=== PATIENT | female | born 1950 | race Caucasian/White ===

== ENCOUNTER 2019-10-22 14:33 | Outpatient (CLI) | payer MEDICARE, SELFPAY ==
--- NOTE | ~2019-10-22 | XR_ITS ---
XR chest 2V DATE: 10/22/2019 14:50 INDICATION: Shortness of breath. History of COPD. TECHNIQUE: PA and lateral views COMPARISON: 05/30/2017 CT chest FINDINGS: Heart size is normal. There is thoracic aortic calcification, ectasia and prominent tortuos ity. No hilar or mediastinal enlargement is evident. The lungs are moderately hyperinflated but clear of infiltrate or consolidation. No pleural effusion or pulmonary vascular congestion or pneumothorax. Osteopenia. Diffuse idiopathic skeletal hyperostosis of the thoracic spine. IMPRESSION: Bilateral hyperinflation consistent with history of COPD No active cardiopulmonary disease Thoracic aortic calcification, ectasia and tortuosity Reviewed, dictated and finalized at location A.
== END 2019-10-22 14:34 | disposition home or self-care (01) ==
PROVIDERS: PCP Family Medicine; Visit Provider Family Medicine
DX: R06.02 Shortness of breath (principal); E04.9 Nontoxic goiter, unspecified; E05.90 Thyrotoxicosis, unspecified without thyrotoxic crisis or storm; I70.0 Atherosclerosis of aorta
CPT/HCPCS: 71046

== ENCOUNTER 2019-12-02 18:29 | Outpatient (CLI) | payer MEDICARE, SELFPAY ==
--- NOTE | ~2019-12-02 | XR_ITS ---
EXAMINATION:XR cervical spine min 6V DATE: 12/02/2019 18:57 INDICATION: Neck pain TECHNIQUE: AP, lateral in neutral, flexion, extension, bilateral oblique, and odontoid views of the c ervical spine are provided. COMPARISON: None FINDINGS: There are 2 mm of anterolisthesis of C4 on C5. No laxity is present with flexion or extensi on. The odontoid is intact. No fracture is identified. The vertebral body heights are normal. There i s moderate loss of intervertebral disc space height at C5-6 and C6-7. There is severe multilevel face t and uncovertebral joint osteoarthritis. Prevertebral soft tissues are normal. IMPRESSION: 1. Severe cervical spondylosis without acute findings. Reviewed, dictated and finalized at location A.
== END 2019-12-02 18:30 | disposition home or self-care (01) ==
PROVIDERS: PCP Family Medicine
DX: M47.892 Other spondylosis, cervical region (principal)
CPT/HCPCS: 72052

== ENCOUNTER 2020-01-17 12:42 | Outpatient (CLI) | payer MEDICARE, SELFPAY ==
[2020-01-17 13:46] LABS: Thyroid Stimulating Hormone 0.529 uIU/mL (0.465-4.680)
== END 2020-01-17 12:43 | disposition home or self-care (01) ==
PROVIDERS: PCP Family Medicine; Visit Provider Family Medicine
DX: E04.9 Nontoxic goiter, unspecified (principal); E05.90 Thyrotoxicosis, unspecified without thyrotoxic crisis or storm
CPT/HCPCS: 36415; 84439; 84443

== ENCOUNTER → 2020-09-04 01:41 | Outpatient (CLI) | payer MEDICARE, SELFPAY ==
[2020-09-04 20:13] LABS: SARS-CoV-2 RNA PCR Negative
== END ==
PROVIDERS: PCP Family Medicine; Visit Provider Internal Medicine Gastroenterology
DX: Z01.812 Encounter for preprocedural laboratory examination (principal); Z20.822 Contact with and (suspected) exposure to COVID-19
CPT/HCPCS: C9803; U0003; U0005

== ENCOUNTER 2020-09-07 02:29 | Day surgery (SDC) | payer MEDICARE, SELFPAY ==
[2020-08-24 12:50] VITALS: BMI 32.4
--- NOTE | 2020-09-06 09:59 | WPDANESEPPF ---
Anes - Initial Pre Proc Eval Procedure: Operation Date: 09/07/20 08:00 Proposed Procedures p Esophagogastroduodenoscopy - Vignesh Rasmussen DO Date/Time: 09/06/20 09:59 Surgeon: Vignesh Rasmussen DO Pre Op Diagnosis: GERD, huntley's esophagus Patient Data Age: 69 Gender: F Height: 1.6 m Weight: 83 kg Allergies Allergy/AdvReac Type Severity Reaction Status Date / Time erythromycin base Allergy Intermediate hives Verified 09/07/20 06:40 Penicillins Allergy Intermediate hives Verified 09/07/20 06:40 Home Medications Medication Instructions Recorded Confirmed Type albuterol sulfate 90 mcg/actuation 1 inhalation INHALATION Q4H 10/22/19 09/04/20 History aerosol inhaler omeprazole 20 mg capsule,delayed 20 mg PO DAILY 10/22/19 09/04/20 History release diltiazem HCl 180 mg capsule,24 180 mg PO DAILY #90 cap 01/23/20 09/04/20 Rx hr,extended release venlafaxine 37.5 mg tablet 37.5 mg PO DAILY #90 tablet 08/24/20 09/04/20 Rx methimazole 5 mg tablet 5 mg PO .QOD #45 tablet 08/31/20 09/04/20 Rx Xanax 0.25 mg tablet 0.25 mg PO TID PRN #90 tablet NS 09/04/20 09/04/20 Rx ciprofloxacin HCl 500 mg tablet 500 mg PO Q12H 7 Days #14 tablet 09/04/20 09/04/20 Rx phenazopyridine 200 mg tablet 200 mg PO TID PRN #6 tablet 09/04/20 09/04/20 Rx Patient hx anesthesia problems: none Family hx anesthesia problems: none [facility] Past Medical History Medical History (Updated 09/04/20 @ 15:47 by Erika Hoskins PA-C) Huntley's esophageal ulceration Benign essential HTN COPD (chronic obstructive pulmonary disease) Esophageal stricture MARILYN (generalized anxiety disorder) Hyperthyroidism Ischemic colitis MDD (major depressive disorder), recurrent episode, moderate Surgical History Surgical History Status post balloon dilatation of esophageal stricture Family History Family History Father Family history of premature coronary heart disease Mother Family history of malignant neoplasm of breast in first degree relative Patient's mother is Social History Social History (Updated 09/04/20 @ 09:44 by Mena Tyler CMA) Social History: Single Years smoked: 25 Smoking status: Current some day smoker Tobacco type: cigarettes Second hand tobacco smoke exposure: No Smoking end date: 06/09/16 Additional smoking assessment comments: pt smokes a pack a month Alcohol intake: current Drinks per week: 2 Alcohol use details: beer Substance use: never Substance use type: does not use Living arrangements: alone Gender identity (if verbalized by the patient): Female Spiritual care concerns: No Anes - Eval Final PreProcedure Day of Procedure 09/06/20 09:59 Patient weight: obese Heart: regular rate and rhythm Lungs: clear to auscultation and normal air movement Airway: Mallampati scale class II Neurological: alert and oriented Last oral intake: >/= 8 hours ASA classification: III Emergent: no Anesthetic plan: proceed Anesthesia type and monitoring: general GIVS Informed Consent: The patient's anesthetic plan and its attendant risks and benefits were discussed with the patient/family/POA. Questions were solicited and answers provided to the satisfaction of the patient/family/POA.
[2020-09-07 06:42] VITALS: BP 130/73; PULSE 66; RESP 18; TEMP 36.8; O2SAT 99; BMI 31.4
[2020-09-07] MEDS: LACTATED RINGERS 1,000 ML 150 ML IV CONT (06:57)
--- NOTE | 2020-09-07 07:53 | WPDGICN ---
GI Consult Note Consult date/time: 09/07/20 07:53 HPI: Reason for visit is EGD. This very pleasant lady seen in consultation request of the primary physician. Impression: Her very pleasant lady with a history reflux disease. She has a short-segment Jimenez's esophagus documented previously. Will evaluate for underlying dysplasia. She does have history esophageal stricture And esophageal ulceration. Ischemic colitis. COPD. Hyperthyroidism with thyroid nodules. Hypertension. HLD. Anxiety/depression. Recommendation: EGD. History: This very pleasant lady has a history reflux disease and dysphagia. She previously has documented esophageal stricture. Previous biopsies have showed a 1 cm segment of short-segment Jimenez's esophagus. We will evaluate for underlying dysplasia. Her GI review systems otherwise unremarkable. Physical examination: General: very pleasant patient in no acute distress. HEENT: Head was normocephalic sclerae is clear mouth without masses neck was supple. Heart: Rate rhythm regular without S3 or S4. Lungs: CTA. Abdomen: Soft with no guarding or rigidity. Bowel sounds were active. Neurologic: Cranial nerves 2 through 12 intact. No focal defects. No clonus. Musculoskeletal system: Revealed no joint tenderness or swelling no muscle atrophy. Extremities: Reveal no significant edema. Skin: Warm and dry with normal turgor. Mental status: intact. Patient is alert and oriented. Review of Systems Review of Systems: All systems reviewed & are unremarkable except as noted in HPI and below PMFSH Past Medical History Medical History (Updated 09/04/20 @ 15:47 by Erika Hoskins PA-C) Jimenez's esophageal ulceration Benign essential HTN COPD (chronic obstructive pulmonary disease) Esophageal stricture MARILYN (generalized anxiety disorder) Hyperthyroidism Ischemic colitis MDD (major depressive disorder), recurrent episode, moderate Surgical History Surgical History Status post balloon dilatation of esophageal stricture Family History Family History Father Family history of premature coronary heart disease Mother Family history of malignant neoplasm of breast in first degree relative Patient's mother is Social History Social History (Updated 09/04/20 @ 09:44 by Mena Tyler CMA) Social History: Single Years smoked: 25 Smoking status: Current some day smoker Tobacco type: cigarettes Second hand tobacco smoke exposure: No Smoking end date: 06/09/16 Additional smoking assessment comments: pt smokes a pack a month Alcohol intake: current Drinks per week: 2 Alcohol use details: beer Substance use: never Substance use type: does not use Living arrangements: alone Gender identity (if verbalized by the patient): Female Spiritual care concerns: No Meds Home Medications and Allergies Home Medications Medication Instructions Recorded Confirmed Type albuterol sulfate 90 mcg/actuation 1 inhalation INHALATION Q4H 10/22/19 09/04/20 History aerosol inhaler omeprazole 20 mg capsule,delayed 20 mg PO DAILY 10/22/19 09/04/20 History release diltiazem HCl 180 mg capsule,24 180 mg PO DAILY #90 cap 01/23/20 09/04/20 Rx hr,extended release venlafaxine 37.5 mg tablet 37.5 mg PO DAILY #90 tablet 08/24/20 09/04/20 Rx methimazole 5 mg tablet 5 mg PO .QOD #45 tablet 08/31/20 09/04/20 Rx Xanax 0.25 mg tablet 0.25 mg PO TID PRN #90 tablet NS 09/04/20 09/04/20 Rx ciprofloxacin HCl 500 mg tablet 500 mg PO Q12H 7 Days #14 tablet 09/04/20 09/04/20 Rx phenazopyridine 200 mg tablet 200 mg PO TID PRN #6 tablet 09/04/20 09/04/20 Rx Allergies Allergy/AdvReac Type Severity Reaction Status Date / Time erythromycin base Allergy Intermediate hives Verified 09/07/20 06:40 Penicillins Allergy Interm
[2020-09-07 08:21] VITALS: BP 111/73; PULSE 64; RESP 25; O2SAT 98
[2020-09-07 08:31] VITALS: BP 101/69; PULSE 65; RESP 23; O2SAT 98
[2020-09-07 08:41] VITALS: BP 122/69; PULSE 64; RESP 20; O2SAT 98
== END 2020-09-07 09:06 | disposition home or self-care (01) ==
PROVIDERS: PCP Family Medicine; Visit Provider Internal Medicine Gastroenterology
PROC: 0DJ08ZZ Inspection of Upper Intestinal Tract, Via Natural or Artificial Opening Endoscopic (ICD-10-PCS; CPT 43235; principal; 2020-09-07 08:00)
DX: K21.00 Gastro-esophageal reflux disease with esophagitis, without bleeding (principal); K22.70 Barrett's esophagus without dysplasia; K44.9 Diaphragmatic hernia without obstruction or gangrene; I10 Essential (primary) hypertension; J44.9 Chronic obstructive pulmonary disease, unspecified; E78.5 Hyperlipidemia, unspecified; E05.90 Thyrotoxicosis, unspecified without thyrotoxic crisis or storm; F41.1 Generalized anxiety disorder; F33.1 Major depressive disorder, recurrent, moderate; Z79.51 Long term (current) use of inhaled steroids; F17.210 Nicotine dependence, cigarettes, uncomplicated; E66.9 Obesity, unspecified; Z68.31 Body mass index [BMI] 31.0-31.9, adult
CPT/HCPCS: 43239; 87081; 88305; C9803; J2704; J7120; U0003; U0005

== ENCOUNTER 2020-09-25 11:09 | Outpatient (CLI) | payer MEDICARE, SELFPAY ==
[2020-09-25 12:09] LABS: Basophils Percent Auto 0.4 % (0.2-1.2); Eosinophils Absolute Auto 0.2 K/mm3 (0-0.3); Eosinophils Percent Auto 3.3 % (0-4.4); Hematocrit 40.8 % (37.0-47.0); Hemoglobin 13.5 g/dL (12.0-15.0); Immature Granulocyte Absolute 0.01 K/mm3 (0.00-0.031); Immature Granulocyte Percent A 0.2 % (0-0.5); Lymphocytes Absolute Auto 1.62 K/mm3 (0.9-3.2); Lymphocytes Percent Auto 29.3 % (18.3-44.2); Mean Corpuscular HGB Conc 33.1 g/dl (32-36); Mean Corpuscular Hemoglobin 31.2 pg (26-34); Mean Corpuscular Volume 94.2 fl (80-100); Mean Platelet Volume 11.5 fl (7.4-10.4); Monocytes Absolute Auto 0.4 K/mm3 (0.1-0.6); Monocytes Percent Auto 6.5 % (2.6-8.5); Neutrophils Absolute Auto 3.3 K/mm3 (1.3-6.7); Neutrophils Percent Auto 60.3 % (45.5-73.1); Platelet Count Result 171 k/mm3 (150-375); Red Blood Count 4.33 M/mm3 (4.2-5.4); Red Cell Distribution Width 13.2 % (11.5-14.5); White Blood Count 5.5 K/mm3 (4.5-10.0)
[2020-09-25 12:21] LABS: Alanine Aminotransferase 6 U/L (4-35); Albumin Level 3.8 g/dL (3.5-5.1); Alkaline Phosphatase 88 U/L (38-126); Anion Gap 3 mmol/L (8-16); Aspartate Amino Transferase 21 U/L (14-36); Bilirubin,Total 0.3 mg/dL (0.2-1.3); Blood Urea Nitrogen 14 mg/dL (7-17); Calcium 8.8 mg/dL (8.4-10.2); Carbon Dioxide 29 mmol/L (22-30); Chloride 105 mmol/L (98-107); Cholesterol 235 mg/dL (0-200); Estimated Glomerular Filt Rate > 60; Glucose 86 mg/dL (65-105); HDL Direct 50 mg/dL; Potassium 3.8 mmol/L (3.4-5.0); Sodium 137 mmol/L (137-145); Triglycerides 100 mg/dL (<150)
[2020-09-25 12:32] LABS: LDL Cholesterol Direct 135 mg/dL
[2020-09-25 12:51] LABS: Thyroid Stimulating Hormone 0.744 uIU/mL (0.465-4.680)
[2020-09-25 13:06] LABS: Free T4 Free Thyroxine 0.96 ng/mL (0.78-2.19)
== END 2020-09-25 11:10 | disposition home or self-care (01) ==
PROVIDERS: PCP Family Medicine; Visit Provider Physician Assistant
DX: E03.9 Hypothyroidism, unspecified (principal); E05.90 Thyrotoxicosis, unspecified without thyrotoxic crisis or storm; F41.1 Generalized anxiety disorder; I10 Essential (primary) hypertension; J44.9 Chronic obstructive pulmonary disease, unspecified; Z13.220 Encounter for screening for lipoid disorders
CPT/HCPCS: 36415; 80053; 80061; 84439; 84443; 85025

== ENCOUNTER 2020-12-27 08:12 | Outpatient (CLI) | payer MEDICARE, SELFPAY ==
--- NOTE | ~2020-12-27 | DEXA_ITS ---
Bone Density Report Name: Asya Ramirez Age: 70 Sex: Female Ethnicity: White Date of : 1950 Indication: osteopenia; height loss; prior fracture; asthma or emphysema; postmenopausal Referring Provider: Erika Hoskins Study: Bone densitometry was performed. Exam Date: December 27, 2020 Accession number: [id number] Bone Density: Region BMD T-score Z-score Classification AP Spine (L1-L4) 0.962 -0.8 1.5 Normal Femoral Neck (Left) 0.828 -0.2 1.7 Normal Total Hip (Left) 0.740 -1.7 0.0 Osteopenia Total Hip Bilateral Avg 0.688 -2.1 -0.4 Osteopenia Femoral Neck (Right) 0.752 -0.9 1.0 Normal Total Hip (Right) 0.634 -2.5 -0.9 Osteoporosis World Health Organization criteria for BMD impression classify patients as: Normal (T-score at or above -1.0), Osteopenia (T-score between -1.0 and -2.5), or Osteoporosis (T-score at or below -2.5). 10-year Fracture Risk: FRAX not reported because: Some T-score for Spine Total or Hip Total or Femoral Neck at or below -2.5 Previous Exams: Region Exam Age BMD T-score BMD Change BMD Change Date g/cm2 vs Baseline vs Previous AP Spine(L1-L4) 12/27/2020 70 0.962 -0.8 -0.052(-5.1%)# -0.140(-12.7%) 09/11/2011 60 1.102 0.5 0.088(8.7%)# 0.044(4.2%)# 04/13/2009 58 1.058 0.1 0.043(4.3%)* 0.043(4.3%)* 08/03/2005 54 1.014 -0.3 Total Hip(Left) 12/27/2020 70 0.740 -1.7 -0.254(-25.6%) -0.099(-11.8%) 09/11/2011 60 0.839 -0.8 -0.156(-15.7%) -0.109(-11.5%) 04/13/2009 58 0.947 0.0 -0.047(-4.7%)* -0.047(-4.7%)* 08/03/2005 54 0.994 0.4 Total Hip(Right) 12/27/2020 70 0.634 -2.5 -0.266(-29.6%) -0.175(-21.6%) 09/11/2011 60 0.809 -1.1 -0.091(-10.1%) -0.096(-10.7%) 04/13/2009 58 0.905 -0.3 0.006(0.6%) 0.006(0.6%) 08/03/2005 54 0.899 -0.3 *Denotes significance at 95% confidence level, LSC for AP Spine = 0.022 g/cm2, LSC for Total Hip = 0.027 g/cm2 Clinical Information Provided by Patient: Has had a low trauma fracture Smokes Has the following medical conditions: Asthma or Emphysema Patient maximum height was 64.5 Menopause Age: 45 Does not regularly consume dairy products Drinks caffeinated beverages Onset of menses at age 10 Number of children 0 Impression: The patient has established osteoporosis, based on the Right Total Hip T-score and the existence of a prior fracture. The patient has risk factors, including: smoking, previous fracture. No significant
--- NOTE | ~2020-12-27 | MM_ITS ---
EXAMINATION: MM screening cornelio BI w chuck HISTORY: Screening TECHNIQUE: Craniocaudal and mediolateral oblique 3-D tomosynthesis images were obtained and synthetic 2-D images were generated. CAD analysis was submitted and interpreted. COMPARISON: No prior mammogram is available for comparison at this institution. BREAST PARENCHYMAL COMPOSITION: There are scattered areas of fibroglandular density. FINDINGS: There is no evidence of suspicious mass, calcification, or architectural distortion to sugg est malignancy in either breast. There has been no suspicious interval change. IMPRESSION: 1. No mammographic evidence of malignancy. 2. Recommend routine screening mammography in one year. BI-RADS Category 1: Negative Reviewed, dictated and finalized at location A.
== END 2020-12-27 08:13 | disposition home or self-care (01) ==
LOC: ANHIMG 08:20
PROVIDERS: PCP Family Medicine; Referring Provider Obstetrics & Gynecology; Visit Provider Physician Assistant
DX: Z12.31 Encounter for screening mammogram for malignant neoplasm of breast (principal); Z78.0 Asymptomatic menopausal state; M85.852 Other specified disorders of bone density and structure, left thigh; M85.851 Other specified disorders of bone density and structure, right thigh; M81.0 Age-related osteoporosis without current pathological fracture
CPT/HCPCS: 77063; 77067; 77080

== ENCOUNTER 2021-03-12 10:33 | Outpatient (CLI) | payer MEDICARE, SELFPAY ==
--- NOTE | ~2021-03-12 | US_ITS ---
EXAMINATION: US venous doppler [facility] DATE: 03/12/2021 11:09 INDICATION: Left lower limb swelling TECHNIQUE: Grayscale ultrasound images without and with compression and Doppler ultrasound images of the left lower extremity veins were obtained. COMPARISON: None. FINDINGS: The visualized portions of left common femoral vein, profunda (deep) femoral vein, femoral vein, popl iteal vein, peroneal veins, posterior tibial veins, gastrocnemius vein and greater saphenous vein out flow are patent. IMPRESSION: 1. No deep venous thrombosis in the left lower limb. Reviewed, dictated and finalized at location B.
--- NOTE | ~2021-03-12 | CT_ITS ---
EXAMINATION: CT diagnostic chest wo con DATE: 03/12/2021 11:15 INDICATION: f/u pulmonary nodules TECHNIQUE: Computed tomography (CT) of the chest was performed without intravenous contrast. Addition al 3D reconstructions utilizing coronal maximum intensity projection (MIP) were performed. Automated exposure control and iterative reconstruction technique were employed. The dose-length product was 16 5.33 mGy-cm. COMPARISON: 05/30/2017 FINDINGS: Mild emphysema. Residual mild linear scarring at the previously noted lobular right middle lobe nodul e. Interval decrease in size and development of calcification at the previous noted 2 more central ri ght middle lobe nodules consistent with old granulomatous disease. There is a new likely coalescent c luster of nodules in the anterobasilar segment of the right lower lobe together measuring 1.5 x 0.7 c m. Small Y-shaped branching likely bronchocele in the lingula measuring 8 mm in maximal length. New 7 x 5 mm nodule at the posterior basilar segment of the right lower lobe. There are few additional sca ttered small calcified and noncalcified less than 4 mm nodules scattered throughout both lungs. Sever al of these are clustered with tree-in-bud appearance consistent with endobronchial spread of disease likely infectious/inflammatory in etiology. No pulmonary edema, pleural effusion or pneumothorax. He art size is normal. Atherosclerotic coronary artery calcification. No pericardial effusion. Ectatic a scending thoracic aorta measuring up to 4.2 cm in maximal diameter. Calcified AP window lymph nodes c onsistent with old granulomatous disease. Small sliding-type hiatal hernia. Visualized upper abdomen is unremarkable. Thoracic kyphosis with chronic compression fracture with mild anterior wedging at T7 . Moderate thoracic spondylosis with bridging osteophytes at multiple levels consistent with diffuse idiopathic skeletal hyperostosis (DISH). IMPRESSION: 1. Multiple calcified and noncalcified pulmonary nodules throughout both lungs likely sequela of old granulomatous disease. There is a new 15 x 7 mm left lower lobe nodule which appears to represent a c luster of several 6 mm and smaller nodules. The location would be challenging for biopsy and would re commend further evaluation with 3 month follow-up low-dose noncontrast chest CT. Reviewed, dictated and finalized at location B. IMPRESSION: 1. Multiple calcified and noncalcified pulmonary nodules throughout both lungs likely sequela of old granulomatous disease. There is a new 15 x 7 mm left lowe r lobe nodule which appears to represent a cluster of several 6 mm and smaller nodules. The location would be challenging for biopsy and would recommend furth er evaluation with 3 month follow-up low-dose noncontrast chest CT.
== END 2021-03-12 10:34 | disposition home or self-care (01) ==
LOC: ANHIMG 10:40
PROVIDERS: PCP Family Medicine; Visit Provider Physician Assistant
DX: R91.8 Other nonspecific abnormal finding of lung field (principal); M79.89 Other specified soft tissue disorders
CPT/HCPCS: 71250; 93971

== ENCOUNTER 2021-05-04 06:50 | Outpatient (CLI) | payer MEDICARE, SELFPAY ==
[2021-05-04 07:21] LABS: Alanine Aminotransferase 8 U/L (4-35); Albumin Level 3.7 g/dL (3.5-5.1); Alkaline Phosphatase 77 U/L (38-126); Anion Gap 2 mmol/L (8-16); Aspartate Amino Transferase 19 U/L (14-36); Bilirubin,Total 0.3 mg/dL (0.2-1.3); Blood Urea Nitrogen 18 mg/dL (7-17); Calcium 8.7 mg/dL (8.4-10.2); Carbon Dioxide 28 mmol/L (22-30); Chloride 106 mmol/L (98-107); Cholesterol 211 mg/dL (0-200); Estimated Glomerular Filt Rate > 60; Glucose 91 mg/dL (65-110); HDL Direct 47 mg/dL; Potassium 4.4 mmol/L (3.4-5.0); Sodium 136 mmol/L (137-145); Triglycerides 92 mg/dL (<150)
[2021-05-04 07:32] LABS: LDL Cholesterol Direct 131 mg/dL
[2021-05-04 07:36] LABS: Free T4 Free Thyroxine 0.94 ng/mL (0.78-2.19)
[2021-05-04 07:50] LABS: Thyroid Stimulating Hormone 0.908 uIU/mL (0.465-4.680)
== END 2021-05-04 06:51 | disposition home or self-care (01) ==
LOC: ANHLAB 06:52
PROVIDERS: PCP Family Medicine; Visit Provider Physician Assistant
DX: E78.2 Mixed hyperlipidemia (principal); F41.1 Generalized anxiety disorder; E05.90 Thyrotoxicosis, unspecified without thyrotoxic crisis or storm; I10 Essential (primary) hypertension
CPT/HCPCS: 36415; 80053; 80061; 84439; 84443

== ENCOUNTER → 2021-06-22 11:35 | Outpatient (CLI) | payer MEDICARE, SELFPAY ==
--- NOTE | ~2021-06-22 | CT_ITS ---
EXAMINATION: CT chest high resolution [facility] EXAM DATE: 06/22/2021 11:51 INDICATION: R91.8 - Other nonspecific abnormal finding of lung field. Multiple lung nodules follow-up . TECHNIQUE: Spiral CT of the chest without contrast. HRCT. Axial, coronal and sagittal images of the chest were reviewed. Coronal maximum intensity pixel images of chest reviewed. The dose-length prod uct (DLP) for this examination was 290.83 mGy-cm. The exposure was tailored according to patient siz e (auto mA exposure control), and iterative reconstruction (ASIR) was used as additional dose reducti on technique. Comparison is made to prior examination from 03/12/2021. FINDINGS: Ascending aorta measures 4.4 cm, mildly dilated. Moderate hyperinflation and mild emphysem a. Some aortic tortuosity. Small sliding gastroesophageal hiatal hernia. Right lower lobe small clust er of nodules is identical in appearance, largest dimension at 15 mm. This is most likely noncalcifie d granuloma. Several other smaller noncalcified and calcified nodules bilaterally. There are no pleural or pericardial effusions. Tracheobronchial tree is patent. There is no media stinal, hilar or axillary lymphadenopathy. There is no pneumothorax. Heart normal in size. Ther e is mild to moderate coronary arterial calcification, arterial sclerosis. Splenic granulomas. Small thyroid nodules, have already been evaluated and biopsy performed in 2019. Patient has diffuse idiop athic skeletal hyperostosis (DISH). There is moderate thoracic spondylosis without osteoblastic or osteolytic lesions identified. No intralobular septal thickening on the HRCT. IMPRESSION: 1. Stable small calcified, noncalcified nodules likely postinfectious residua; one-year follow-up no ncontrast chest CT recommended. 2. Mildly dilated ascending aorta, 4.4 cm. 3. Moderate hyperinflation. 4. Small gastroesophageal hiatal hernia. Reviewed, dictated and finalized at location A. GY CONSERVATION ENGINEER IMPRESSION: 1. Stable small calcified, noncalcified nodules likely postinfectious residua; one-year follow-up noncontrast chest CT recommended. 2. Mildly dilated ascending aorta, 4.4 cm. 3. Moderate hyperinflation. 4. Small gastroesophageal hiatal hernia.
== END ==
PROVIDERS: Visit Provider Nurse Practitioner Gerontology
DX: R91.8 Other nonspecific abnormal finding of lung field (principal); K44.9 Diaphragmatic hernia without obstruction or gangrene
CPT/HCPCS: 71250

== ENCOUNTER 2021-08-18 07:01 | Outpatient (CLI) | payer MEDICARE, SELFPAY ==
[2021-08-18 08:50] LABS: Alanine Aminotransferase 6 U/L (4-35); Aspartate Amino Transferase 19 U/L (14-36); Cholesterol 234 mg/dL (0-200); HDL Direct 41 mg/dL; Triglycerides 102 mg/dL (<150)
[2021-08-18 09:01] LABS: LDL Cholesterol Direct 138 mg/dL
== END 2021-08-18 07:02 | disposition home or self-care (01) ==
PROVIDERS: PCP Family Medicine; Visit Provider Internal Medicine Cardiovascular Disease
DX: I71.9 Aortic aneurysm of unspecified site, without rupture (principal); E78.5 Hyperlipidemia, unspecified; I10 Essential (primary) hypertension; R00.2 Palpitations; Z72.0 Tobacco use
CPT/HCPCS: 36415; 80061; 84450; 84460

== ENCOUNTER 2021-09-04 07:42 | Outpatient (CLI) | payer MEDICARE, SELFPAY ==
--- NOTE | ~2021-09-04 | US_ITS ---
EXAMINATION: US aorta [facility] DATE: 09/04/2021 08:10 INDICATION: Abdominal aortic aneurysm screening TECHNIQUE: Grayscale, color Doppler, and pulsed Doppler images of the aorta and common iliac arteries were obtained. COMPARISON: CT abdomen pelvis dated 12/09/2016 FINDINGS: The proximal aorta measures 2.0 cm AP. The mid aorta measures 2.1 cm. The distal aorta measures 2.3 c m, tapering to 1.9 cm at the bifurcation. The right common iliac artery measures 1.9 cm. The left com mon iliac artery measures 1.9 cm. The visualized proximal to mid inferior vena cava is normal. IMPRESSION: 1. Normal caliber abdominal aorta. Reviewed, dictated and finalized at location A.
== END 2021-09-04 07:43 | disposition home or self-care (01) ==
LOC: ANHIMG 07:45
PROVIDERS: PCP Family Medicine; Visit Provider Internal Medicine Cardiovascular Disease
DX: Z13.6 Encounter for screening for cardiovascular disorders (principal)
CPT/HCPCS: 76706

== ENCOUNTER 2021-12-31 10:46 | Outpatient (CLI) | payer MEDICARE, SELFPAY ==
--- NOTE | ~2021-12-31 | XR_ITS ---
EXAMINATION: XR chest 2V 12/31/2021 11:19 INDICATION: Shortness of breath PROCEDURE: 2 view chest COMPARISON: Comparison to multiple prior studies sequentially, with oldest reviewed study dated 10/21. FINDINGS: The lungs are clear. There is atherosclerosis and ectasia of the thoracic aorta. The cardio mediastinal silhouette is within normal limits. There are no pleural effusions. There is no pneumot horax suspected. IMPRESSION: 1: NO ACUTE CARDIOPULMONARY DISEASE. Reviewed, dictated and finalized at location A.
[2021-12-31 11:20] LABS: Basophils Percent Auto 0.3 % (0.2-1.2); Eosinophils Absolute Auto 0.2 K/mm3 (0-0.3); Eosinophils Percent Auto 3.1 % (0-4.4); Hematocrit 41.5 % (37.0-47.0); Hemoglobin 13.3 g/dL (12.0-15.0); Immature Granulocyte Absolute 0.01 K/mm3 (0.00-0.031); Immature Granulocyte Percent A 0.2 % (0-0.5); Lymphocytes Absolute Auto 1.53 K/mm3 (0.9-3.2); Lymphocytes Percent Auto 26.2 % (18.3-44.2); Mean Corpuscular Hemoglobin 30.6 pg (26-34); Mean Corpuscular Volume 95.4 fl (80-100); Monocytes Absolute Auto 0.4 K/mm3 (0.1-0.6); Monocytes Percent Auto 6.5 % (2.6-8.5); Neutrophils Absolute Auto 3.7 K/mm3 (1.3-6.7); Neutrophils Percent Auto 63.7 % (45.5-73.1); Platelet Count Result 166 k/mm3 (150-375); Red Blood Count 4.35 M/mm3 (4.2-5.4); Red Cell Distribution Width 14.4 % (11.5-14.5); White Blood Count 5.8 K/mm3 (4.5-10.0)
[2021-12-31 11:33] LABS: Alanine Aminotransferase 6 U/L (6-35); Albumin Level 3.8 g/dL (3.5-5.1); Alkaline Phosphatase 68 U/L (38-126); Anion Gap 6 mmol/L (8-16); Aspartate Amino Transferase 19 U/L (14-36); Bilirubin,Total 0.4 mg/dL (0.2-1.3); Blood Urea Nitrogen 20 mg/dL (7-17); Calcium 9.3 mg/dL (8.4-10.2); Carbon Dioxide 30 mmol/L (22-30); Chloride 103 mmol/L (98-107); Estimated Glomerular Filt Rate 54; Glucose 90 mg/dL (65-110); Potassium 4.1 mmol/L (3.4-5.0); Sodium 139 mmol/L (137-145)
[2021-12-31 11:42] LABS: NT Pro B Type Natriuretic Pept 129 pg/mL (5-100)
[2021-12-31 12:03] LABS: Thyroid Stimulating Hormone 0.246 uIU/mL (0.465-4.680); Total Triiodothyronine (T3) 1.33 NG/ML (0.97-1.69)
[2021-12-31 12:06] LABS: Free T4 Free Thyroxine 1.16 ng/mL (0.78-2.19)
== END 2021-12-31 10:47 | disposition home or self-care (01) ==
PROVIDERS: PCP Family Medicine; Visit Provider Nurse Practitioner Gerontology
DX: E05.90 Thyrotoxicosis, unspecified without thyrotoxic crisis or storm (principal); I10 Essential (primary) hypertension; J44.9 Chronic obstructive pulmonary disease, unspecified; R53.83 Other fatigue; R06.02 Shortness of breath; R73.9 Hyperglycemia, unspecified; Z83.3 Family history of diabetes mellitus
CPT/HCPCS: 36415; 71046; 80053; 82607; 83880; 84439; 84443; 84480; 85025

== ENCOUNTER 2022-05-03 10:36 | Outpatient (CLI) | payer MEDICARE, SELFPAY ==
[2022-05-03 11:38] LABS: Basophils Percent Auto 0.7 % (0.2-1.2); Eosinophils Absolute Auto 0.2 K/mm3 (0-0.3); Eosinophils Percent Auto 2.9 % (0-4.4); Hematocrit 40.1 % (37.0-47.0); Hemoglobin 13.3 g/dL (12.0-15.0); Immature Granulocyte Absolute 0.02 K/mm3 (0.00-0.031); Immature Granulocyte Percent A 0.3 % (0-0.5); Lymphocytes Absolute Auto 1.53 K/mm3 (0.9-3.2); Lymphocytes Percent Auto 26.1 % (18.3-44.2); Mean Corpuscular HGB Conc 33.2 g/dl (32-36); Mean Corpuscular Hemoglobin 30.8 pg (26-34); Mean Corpuscular Volume 92.8 fl (80-100); Mean Platelet Volume 10.9 fl (7.4-10.4); Monocytes Absolute Auto 0.4 K/mm3 (0.1-0.6); Neutrophils Absolute Auto 3.7 K/mm3 (1.3-6.7); Platelet Count Result 177 k/mm3 (150-375); Red Blood Count 4.32 M/mm3 (4.2-5.4); Red Cell Distribution Width 13.7 % (11.5-14.5); White Blood Count 5.9 K/mm3 (4.5-10.0)
[2022-05-03 11:48] LABS: Alanine Aminotransferase 11 U/L (6-35); Albumin Level 3.7 g/dL (3.5-5.1); Alkaline Phosphatase 70 U/L (38-126); Anion Gap 6 mmol/L (8-16); Aspartate Amino Transferase 21 U/L (14-36); Bilirubin,Total 0.2 mg/dL (0.2-1.3); Blood Urea Nitrogen 23 mg/dL (7-17); Calcium 8.8 mg/dL (8.4-10.2); Carbon Dioxide 27 mmol/L (22-30); Chloride 106 mmol/L (98-107); Estimated Glomerular Filt Rate > 60; Glucose 88 mg/dL (65-110); Potassium 3.8 mmol/L (3.4-5.0); Sodium 139 mmol/L (137-145)
[2022-05-03 12:19] LABS: Total Triiodothyronine (T3) 1.19 NG/ML (0.97-1.69)
[2022-05-03 12:23] LABS: Free T4 Free Thyroxine 1.05 ng/mL (0.78-2.19)
== END 2022-05-03 10:37 | disposition home or self-care (01) ==
PROVIDERS: PCP Family Medicine; Visit Provider Nurse Practitioner Gerontology
DX: E05.90 Thyrotoxicosis, unspecified without thyrotoxic crisis or storm (principal); I10 Essential (primary) hypertension; F41.1 Generalized anxiety disorder
CPT/HCPCS: 36415; 80053; 84439; 84443; 84480; 85025

== ENCOUNTER 2022-05-25 09:36 | Outpatient (CLI) | payer MEDICARE, SELFPAY ==
--- NOTE | ~2022-05-25 | MM_ITS ---
EXAMINATION: MM screening cornelio BI w chuck HISTORY: Screening TECHNIQUE: Craniocaudal and mediolateral oblique 3-D tomosynthesis images were obtained and synthetic 2-D images were generated. CAD analysis was submitted and interpreted. COMPARISON: Comparison to multiple prior studies sequentially, with oldest reviewed study dated 07/28. BREAST PARENCHYMAL COMPOSITION: Breast composed of scattered areas of fibroglandular density FINDINGS: There are new asymmetries in the left periareolar location. The right breast is stable with out evidence for malignancy. IMPRESSION: 1. New periareolar asymmetries of the left breast. 2. Additional mammographic views and possible breast ultrasound are recommended. BI-RADS Category 0: Incomplete: Needs additional imaging evaluation. Reviewed, dictated and finalized at location A. CY ANALYST IMPRESSION: 1. New periareolar asymmetries of the left breast. 2. Additional mammographic views and possible breast ultrasound are recommended . BI-RADS Category 0: Incomplete: Needs additional imaging evaluation.
== END 2022-05-25 09:37 | disposition home or self-care (01) ==
LOC: ANHIMG 09:37
PROVIDERS: PCP Family Medicine; Visit Provider Obstetrics & Gynecology
DX: Z12.31 Encounter for screening mammogram for malignant neoplasm of breast (principal); R92.8 Other abnormal and inconclusive findings on diagnostic imaging of breast
CPT/HCPCS: 77063; 77067

== ENCOUNTER → 2022-06-17 11:23 | Outpatient (CLI) | payer MEDICARE, SELFPAY ==
--- NOTE | ~2022-06-17 | CT_ITS ---
EXAMINATION:CT chest high resolution [facility] DATE: 06/17/2022 11:41 INDICATION: Multiple lung nodules. Other nonspecific abnormal finding in lung field. TECHNIQUE: Computed tomography (CT) of the chest was performed without intravenous contrast. Automate d exposure control and iterative reconstruction technique were employed. The dose-length product (DLP ) was 285.02 mGy-cm. COMPARISON: Chest CT 06/22/2021 FINDINGS: There is mild atelectasis bilaterally. There is mild scarring in paraspinal right lower lob e. Calcified pulmonary nodules and calcified hilar and mediastinal lymph nodes are consistent with ol d granulomatous disease. There is a stable 10 mm nodule in right lower lobe. There is a stable 5 mm n odule in left lower lobe. There is a cluster of tree-in-bud opacities in left lower lobe, likely infe ction or inflammation. There is a stable cluster of tree-in-bud opacities in lingula. No pleural effu petros. The heart size is normal. There are coronary artery calcifications. No pericardial effusion. Th ere is ectasia of ascending aorta measuring 4.1 cm. There is a small sliding hiatal hernia. Calcifica tions in the spleen are consistent with old granulomatous disease. There is mild chronic anterior wed ging of multiple thoracic vertebral bodies. There is severe mid thoracic spondylosis. There are bridg ing endplate osteophytes at multiple levels in the spine, consistent with diffuse idiopathic skeletal hyperostosis (DISH). IMPRESSION: 1. Stable pulmonary nodules, likely benign. Reviewed, dictated and finalized at location A. ESTATE LEASING AGENT
== END ==
PROVIDERS: PCP Family Medicine; Visit Provider Nurse Practitioner Gerontology
DX: R91.8 Other nonspecific abnormal finding of lung field (principal)
CPT/HCPCS: 71250

== ENCOUNTER 2022-06-24 13:05 | Outpatient (CLI) | payer MEDICARE, SELFPAY ==
--- NOTE | ~2022-06-24 | MMUS_ITS ---
EXAMINATION: MM diagnostic cornelio LT w chuck, US breast LT limited HISTORY: Possible left breast mass on screening mammogram TECHNIQUE: Additional 3-D tomosynthesis images of the left breast were performed and synthetic 2-D im ages were generated. CAD analysis was submitted and interpreted. High resolution limited left breast ultrasound was performed. COMPARISON: 05/25/2022, 12/27/2020, 04/20/2019 FINDINGS: MAMMOGRAPHIC FINDINGS: There is a 6 mm oval, obscured, equal density mass adjacent to the nipple and slightly inner breast. No suspicious calcification or architectural distortion are identified. ULTRASOUND: There is an 8 mm x 4 mm oval, circumscribed, parallel, complex cystic and solid mass at the 7:00 loca tion 1 cm from the nipple with no posterior features or internal vascularity. IMPRESSION: 1. Possible clustered microcysts in the left breast near the nipple. 2. Recommend 6 month follow-up left diagnostic mammogram and ultrasound. BI-RADS category 3, probably benign findings. Reviewed, dictated and finalized at location A. PET TEACHER IMPRESSION: 1. Possible clustered microcysts in the left breast near the nipple. 2. Recommend 6 month follow-up left diagnostic mammogram and ultrasound. BI-RADS category 3, probably benign findings.
== END 2022-06-24 13:06 | disposition home or self-care (01) ==
LOC: ANHIMG 13:08
PROVIDERS: PCP Family Medicine; Visit Provider Obstetrics & Gynecology
DX: N64.89 Other specified disorders of breast (principal); R92.8 Other abnormal and inconclusive findings on diagnostic imaging of breast
CPT/HCPCS: 76642; 77061; 77065; G0279

== ENCOUNTER 2022-08-08 08:02 | Outpatient (CLI) | payer MEDICARE, SELFPAY ==
--- NOTE | 2022-08-08 08:50 | PCRCNOTE ---
PATIENT HAD RECENT COVID DX APPROX. 2 WEEKS AGO WITH RESPIRATORY SYMPTOMS. PER DR GARCIA, PATIENT IS TO RESCHEDULE PFT FOR 2 WEEKS AFTER SHE IS FEELING BACK TO BASELINE. 6MWT WAS COMPLETED, NO O2 NEEDED. I GAVE PT OUR CARD FOR DIRECT LINE TO PFT SCHEDULING WHEN SHE IS READY
--- NOTE | 2022-08-13 01:36 | P.PCNSIX_ITS ---
Six Minute Walk Procedure Procedure Performed Pulmonary Stress Test (6 min walk) Six Minute Walk Six Minute Walk: DOS: 08/08/2022 REQUESTING: Emmanuel Voss MD REASON FOR TESTING: dyspnea SIX MINUTE WALK This study was conducted per ATS standards. Initial saturation was 98% and p ulse was 63. The patient walked while breathing room air, no walking aids were used. The initial Mary Lou dyspnea score was 3. During walking, saturation was maintained between 93% and 99%. Pulse ranged from 63 to 110. During recovery pulse returned to 86. Distance walked was 365 m/ 1200 ft which is normal. Mary Lou dyspnea score the end of the walk was 4. IMPRESSION: Normal study, no supplemental oxygen needed with exertion. Distance walked is normal for age.
== END 2022-08-08 08:03 | disposition home or self-care (01) ==
PROVIDERS: PCP Family Medicine; Visit Provider Internal Medicine Pulmonary Disease
DX: J40 Bronchitis, not specified as acute or chronic (principal); Z72.0 Tobacco use
CPT/HCPCS: 94618

== ENCOUNTER 2022-08-30 09:48 | Outpatient (CLI) | payer MEDICARE, SELFPAY ==
--- NOTE | 2022-09-03 19:37 | WPDPFTINT ---
PFT Procedure Performed PFT Procedure Performed Spirometry with Pre/Post Bronchodilator Plethysmography (Lung Vol) Diffusing Cap (DLCO) Flow Vol Loop PFT Interpretation DOS: 08/30/2022 REQUESTING: Emmanuel Voss MD REASON FOR TESTING: Dyspnea PULMONARY FUNCTION TESTS Results are reliable and reproducible. Spirometry: Pre-bronchodilator FEV1 is 1.82 L, 88%, normal. Pre-bronchodilator FVC is 2.64 L, 98%, normal. FEV1:FVC is 69%, normal. After bronchodilator, there is a 4% increase in FEV1 and 8% increase in FVC. These are not statistically significant increases. Lung volumes: Total lung capacity is 5.13 L, 103% predicted, normal. Residual volume is 2.35 L, 106%, normal. RV/TLC is 46%, normal. The slow vital capacity is 2.78 L, 103%, normal. Airway resistance is 2.74 cmH20/L/sec, 166%, increased. Diffusion: DLCO is 14.6, 73%, normal. DLCO/ VA 3.99, 94%, normal. Flow volume loop: Flow volume loop shows scooping of the expiratory limb. IMPRESSION: Normal spirometry, lung volumes and diffusion. Lack of response to bronchodilator should not preclude use if clinically indicated. Compared to a PFT with bronchodilator at [facility] in [place], [place] on 11/04/2017, FEV1 was 2.25 L, 100% predicted. FVC was 3.08 L, 108% predicted. FEV1:FVC was 73%. TLC was 5.56 L, 111%. RV was 2.49 L, 116%. DLCO was 85% predicted. The values were similar to current values. Val Zarate MD
== END 2022-08-30 09:49 | disposition home or self-care (01) ==
PROVIDERS: PCP Family Medicine; Visit Provider Internal Medicine Pulmonary Disease
DX: R06.00 Dyspnea, unspecified (principal)
CPT/HCPCS: 94060; 94726; 94729

== ENCOUNTER 2022-09-24 11:49 | Emergency (ER) | payer MEDICARE, SELFPAY ==
--- NOTE | ~2022-09-24 | XR_ITS ---
XR foot LT 2V 09/24/2022 14:45 Indication: Cellulitis Procedure: 2 views left foot Comparison: No prior studies for comparison. Findings: No fracture, subluxation or dislocation. There is dorsal soft tissue swelling seen on the l ateral view. No evidence for osteomyelitis. Lisfranc joint intact. Impression: 1: No acute bone or joint abnormality. Moderate dorsal soft tissue swelling. Reviewed, dictated and finalized at location A. Impression: 1: No acute bone or joint abnormality. Moderate dorsal soft tissue swelling.
[2022-09-24 12:17] VITALS: BP 142/68; PULSE 84; RESP 18; TEMP 36.8; O2SAT 99
--- NOTE | 2022-09-24 14:38 | ED.EXTPRO ---
HPI - Extremity Problem General Chief complaint: Extremity Problem,Nontraumatic Stated complaint: Left foot cellulitis Time Seen by Provider: 09/24/22 14:15 Source: patient Mode of arrival: ambulatory Limitations: no limitations History of Present Illness HPI Narrative: This is a 71-year-old female with PMH of COPD, HTN who presents to the ED with chief complaint of left foot cellulitis. She was seen in an urgent care 3 days ago and given a prescription for doxycycline and naproxen. She has been taking her medications. She states is here today because she thought that the problem would be completely resolved by today. She states the redness and swelling and pain are all decreased from initial onset. Denies fevers, chills, nausea, vomiting. Related Data Home Medications Medication Instructions Recorded Confirmed omeprazole 20 mg capsule,delayed 20 mg PO DAILY 10/22/19 07/19/22 release evolocumab 420 mg/3.5 mL mg subcut 12/31/21 07/19/22 subcutaneous wearable injector (Repatha Pushtronex) Allergies Allergy/AdvReac Type Severity Reaction Status Date / Time erythromycin base Allergy Intermediate hives Verified 07/30/22 09:24 Penicillins Allergy Intermediate hives Verified 07/30/22 09:24 Review of Systems Review of Systems: CONSTITUTIONAL: Denies fever, chills, or sweats. EYES: Denies visual changes, redness, or discharge. ENT: Denies rhinorrhea, congestion, sore throat, or otalgia. CARDIOVASCULAR: Denies chest pain, palpitations, or edema. RESPIRATORY: Denies cough or dyspnea. GASTROINTESTINAL: Denies abdominal pain, nausea, vomiting, or diarrhea. GENITOURINARY: Denies dysuria or hematuria. SKIN: See HPI MUSCULOSKELETAL: Denies back pain, joint pain, or myalgia. NEUROLOGIC: Denies headache, numbness, dizziness, or weakness. PSYCHIATRIC: Denies anxiety or depression. [facility] Past Medical History Medical History Anxiety and depression Jimenez's esophageal ulceration Barretts esophagus Benign essential HTN Breasts asymmetrical COPD (chronic obstructive pulmonary disease) Esophageal stricture MARILYN (generalized anxiety disorder) Heart murmur Hyperthyroidism Ischemic colitis MDD (major depressive disorder), recurrent episode, moderate Pulmonary nodules Rheumatic fever x2 Surgical History Surgical History History of ankle surgery (~2004) compound fracture rt ankle--2 surgeries History of hernia repair (~12/2016) History of repair of hiatal hernia (~2007) Status post balloon dilatation of esophageal stricture Family History Family History Father Family history of premature coronary heart disease Hypertension Mother Family history of malignant neoplasm of breast in first degree relative Patient's mother is Diabetes mellitus Neoplasm of ovary Other Carcinoma of colon maternal aunt Social History Social History Social History: Single Smoking packs per day: 0.5 Smoking cigarettes per day: 10.0 Years smoked: 25 Smoking pack-years: 12.50 Smoking status: Former smoker Tobacco type: cigarettes Second hand tobacco smoke exposure: No Additional smoking assessment comments: pt smokes a pack a month currently Alcohol intake: current Drinks per week: 2 Alcohol use details: beer Substance use: never Substance use type: does not use Living arrangements: alone Occupation/Education: retired Gender identity (if verbalized by the patient): Female Sexual Orientation (if Verbalized by the Patient): Straight or Heterosexual Spiritual care concerns: No Exam Narrative: GENERAL: Well-appearing, well-nourished, and in no acute distress. HEAD: Normocephalic, atraumatic. EYES: PERRLA and EOMI. ENT: Nares clear, no rhinorrhea
[2022-09-24 15:09] LABS: Basophils Percent Auto 0.4 % (0.2-1.2); Eosinophils Absolute Auto 0.2 K/mm3 (0-0.3); Eosinophils Percent Auto 3.4 % (0-4.4); Hematocrit 42.5 % (37.0-47.0); Immature Granulocyte Absolute 0.03 K/mm3 (0.00-0.031); Immature Granulocyte Percent A 0.4 % (0-0.5); Lymphocytes Absolute Auto 0.98 K/mm3 (0.9-3.2); Mean Corpuscular HGB Conc 32.9 g/dl (32-36); Mean Corpuscular Hemoglobin 31.5 pg (26-34); Mean Corpuscular Volume 95.7 fl (80-100); Mean Platelet Volume 10.6 fl (7.4-10.4); Monocytes Absolute Auto 0.5 K/mm3 (0.1-0.6); Monocytes Percent Auto 6.8 % (2.6-8.5); Neutrophils Absolute Auto 5.3 K/mm3 (1.3-6.7); Platelet Count Result 248 k/mm3 (150-375); Red Blood Count 4.44 M/mm3 (4.2-5.4); Red Cell Distribution Width 14.5 % (11.5-14.5)
[2022-09-24 15:13] LABS: Anion Gap 4 mmol/L (8-16); Blood Urea Nitrogen 15 mg/dL (7-17); Calcium 8.8 mg/dL (8.4-10.2); Carbon Dioxide 30 mmol/L (22-30); Chloride 101 mmol/L (98-107); Estimated CRCL calculation 75 ml/min; Estimated Glomerular Filt Rate > 60; Glucose 98 mg/dL (65-110); Potassium 4.1 mmol/L (3.4-5.0); Sodium 135 mmol/L (137-145)
== END 2022-09-24 15:49 | disposition home or self-care (01) ==
PROVIDERS: Emergency Provider Physician Assistant; PCP Family Medicine
DX: L03.116 Cellulitis of left lower limb (principal); J44.9 Chronic obstructive pulmonary disease, unspecified; I10 Essential (primary) hypertension; E05.90 Thyrotoxicosis, unspecified without thyrotoxic crisis or storm; K55.9 Vascular disorder of intestine, unspecified; K22.70 Barrett's esophagus without dysplasia; F41.1 Generalized anxiety disorder; F33.9 Major depressive disorder, recurrent, unspecified; Z87.891 Personal history of nicotine dependence
CPT/HCPCS: 36415; 73620; 80048; 85025; 99283

== ENCOUNTER 2022-09-26 13:45 | Outpatient (CLI) | payer MEDICARE, SELFPAY ==
[2022-09-26 14:59] LABS: Thyroid Stimulating Hormone 0.183 uIU/mL (0.465-4.680); Total Triiodothyronine (T3) 1.41 NG/ML (0.97-1.69)
[2022-09-26 15:47] LABS: Free T4 Free Thyroxine 1.44 ng/mL (0.78-2.19)
[2022-09-26 20:19] LABS: Hemoglobin A1C 5.4 % (<5.7)
== END 2022-09-26 13:46 | disposition home or self-care (01) ==
PROVIDERS: PCP Family Medicine; Visit Provider Physician Assistant
DX: E05.90 Thyrotoxicosis, unspecified without thyrotoxic crisis or storm (principal); R73.9 Hyperglycemia, unspecified
CPT/HCPCS: 36415; 83036; 84439; 84443; 84480

== ENCOUNTER 2022-12-17 09:18 | Outpatient (CLI) | payer MEDICARE, SELFPAY ==
[2022-12-17 10:52] LABS: Free T4 Free Thyroxine 1.24 ng/mL (0.78-2.19)
[2022-12-17 11:02] LABS: Thyroid Stimulating Hormone 0.396 uIU/mL (0.465-4.680)
[2022-12-20 05:27] LABS: Thyroid Peroxidase Antibodies 8 IU/mL (<9)
[2022-12-20 11:36] LABS: Thyrotropin Receptor Antibody <1.00 IU/L (<=2.00)
[2022-12-20 14:11] LABS: Thyroid Stimulating Immunoglob <89 % baseline (<140)
== END 2022-12-17 09:19 | disposition home or self-care (01) ==
PROVIDERS: PCP Family Medicine; Visit Provider Internal Medicine
DX: E04.2 Nontoxic multinodular goiter (principal)
CPT/HCPCS: 36415; 83519; 84439; 84443; 84445; 86376

== ENCOUNTER 2022-12-25 12:23 | Outpatient (CLI) | payer MEDICARE, SELFPAY ==
--- NOTE | ~2022-12-25 | NM_ITS ---
EXAMINATION: NM thyroid scan w uptake DATE: 12/26/2022 13:18 INDICATION: Nontoxic multinodular goiter. COMPARISON: Ultrasound 12/25/2022 TECHNIQUE: 0.315 mCi I-123 was administered orally. Scintigraphic images of the thyroid gland were o btained at 24 hours. Thyroid uptake was calculated by the technologist. FINDINGS: The thyroid uptake is 18% (normal 10-30%), with the right lobe measuring 12% uptake and the left 7%. There is no focal area of decreased or increased activity to suggest hypofunctioning or hyperfunction ing nodule. IMPRESSION: 1. Normal thyroid scintigraphy and 24-hour iodine uptake. Reviewed, dictated and finalized at location A.
--- NOTE | ~2022-12-25 | US_ITS ---
EXAMINATION: US thyroid DATE: 12/25/2022 12:57 INDICATION: Nontoxic multinodular goiter. TECHNIQUE: Multiple ultrasound images of the thyroid were obtained. COMPARISON: Ultrasound 03/20/2019, 04/21/19 FINDINGS: The right thyroid lobe measures 5.6 x 2.1 x 2.2 cm. The left thyroid lobe measures 4.2 x 1.8 x 1.8 c m. There are multiple subcentimeter nodules in the thyroid. In the left thyroid lobe, there is a 1.9 cm solid, hypoechoic, wider than tall nodule with smooth margin without echogenic foci (TI-RADS TR4) , stable from 04/21/2019 when biopsy was benign. In the thyroid isthmus, there is a 3.2 cm solid, hyp oechoic, wider than tall nodule with smooth margin without echogenic foci (TR4), stable from 04/21/20 when biopsy was benign. In the right thyroid lobe, there is a 1.9 cm solid, hypoechoic, wider than tall nodule with lobulated margin without echogenic foci (TR4), stable from 03/20/19. IMPRESSION: 1. Stable multinodular goiter status post 2 benign biopsies. Reviewed, dictated and finalized at location A.
== END 2022-12-25 12:24 | disposition home or self-care (01) ==
LOC: ANHIMG 12:30
PROVIDERS: PCP Family Medicine; Visit Provider Internal Medicine
DX: E04.2 Nontoxic multinodular goiter (principal)
CPT/HCPCS: 76536; 78014; A9516

== ENCOUNTER 2023-04-28 12:00 | Outpatient (CLI) | payer MEDICARE, SELFPAY ==
--- NOTE | ~2023-04-28 | MM_ITS ---
EXAMINATION: MM diagnostic cornelio BI w chuck HISTORY: Six-month follow-up of possible clustered microcysts in left breast near nipple noted on 06/09 left Limited ultrasound and diagnostic mammogram examinations TECHNIQUE: Bilateral full field ML, MLO and CC and spot left 3-D tomosynthesis images were performed and synthetic 2-D images were generated. CAD analysis was submitted and interpreted. COMPARISON: 06/24/2022 diagnostic left mammogram and limited left breast ultrasound 05/25/2022, 12/27/2020ilateral screening mammogram examinations BREAST PARENCHYMAL COMPOSITION: There are scattered areas of fibroglandular density. FINDINGS: There is a new circumscribed 2 x 4 mm opacity situated anteriorly in the lower inner quadra nt of left breast, likely benign. Diagnostic left mammogram and lower inner quadrant left breast ultr asound examination are recommended. Stable mammographic appearance of the subareolar area of the left breast. Targeted subareolar left br east ultrasound is recommended as suggested on 06/24/2022 examination. Otherwise no suspicious mass, architectural distortion, malignant calcification, skin thickening or r etraction of either breast is detected. IMPRESSION: 1. Incomplete; need additional imaging evaluation 2. Lower inner quadrant and subareolar left breast ultrasound examination are recommended BI-RADS Category 0: Incomplete: Needs additional imaging evaluation. Reviewed, dictated and finalized at location A. 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 Incomplete; need additional imaging evaluation 2. Lower inner quadrant and subareolar left breast ultrasound examination are r ecommended BI-RADS Category 0: Incomplete: Needs additional imaging evaluation.
== END 2023-04-28 12:01 | disposition home or self-care (01) ==
LOC: ANHIMG 12:01
PROVIDERS: PCP Family Medicine; Visit Provider Obstetrics & Gynecology
DX: R92.8 Other abnormal and inconclusive findings on diagnostic imaging of breast (principal)
CPT/HCPCS: 77062; 77066; G0279

== ENCOUNTER 2023-05-05 12:39 | Outpatient (CLI) | payer MEDICARE, SELFPAY ==
--- NOTE | ~2023-05-05 | US_ITS ---
EXAMINATION: 1. US FNA additional 2. US FNA w image guidance DATE: 05/05/2023 13:33 INDICATION: Nontoxic multinodular goiter. TECHNIQUE: The procedure and its benefits and risks were discussed with the patient. Risks specifically discusse d included bleeding. The patient verbalized understanding of the risks and agreed to proceed. The nec k was prepped and draped in the usual sterile manner. 1% lidocaine was used for local anesthesia. S ix passes were made with a 25G needle into the lesion in superior right thyroid lobe under ultrasound guidance. Six passes were made with a 25-gauge needle into the lesion in inferior right thyroid lobe under ultr asound guidance. There were no immediate complications. FINDINGS: Grayscale ultrasound images demonstrate needles advanced into a 1.4 cm nodule in superior right thyro id lobe for biopsy. Grayscale ultrasound images demonstrate needles advanced into a 2.1 cm nodule in inferior right thyroid lobe for biopsy. IMPRESSION: 1. Ultrasound-guided fine needle aspiration of a 1.4 cm nodule in superior right thyroid lobe. 2. Ultrasound-guided fine needle aspiration of a 2.1 cm nodule in inferior right thyroid lobe. Reviewed, dictated and finalized at location A. ER [employer]ACH[employer]ES IMPRESSION: 1. Ultrasound-guided fine needle aspiration of a 1.4 cm nodule in superior rig ht thyroid lobe. 2. Ultrasound-guided fine needle aspiration of a 2.1 cm nodule in inferior righ t thyroid lobe.
== END 2023-05-05 12:40 | disposition home or self-care (01) ==
PROVIDERS: PCP Family Medicine; Visit Provider Internal Medicine
DX: E04.2 Nontoxic multinodular goiter (principal)
CPT/HCPCS: 10005; 10006; 88173; 88305

== ENCOUNTER 2023-05-15 09:58 | Outpatient (CLI) | payer MEDICARE, SELFPAY ==
--- NOTE | ~2023-05-15 | US_ITS ---
EXAMINATION: US breast LT limited HISTORY: Six-month follow-up for probably benign left breast mass TECHNIQUE: Limited left breast ultrasound was performed. FINDINGS: There is a 6 mm x 4 mm oval, circumscribed, parallel, complex cystic and solid mass at the 7:00 location, 7 cm from the nipple with no posterior features or internal vascularity. This demonstr ates interval decrease in size since the comparison examination. A 4 mm cyst noted at the 6:00 locati on, 3 cm from the nipple. IMPRESSION: Sonographically detected left breast mass with interval decrease in size, most consistent with cluste red microcysts. Routine annual screening mammography is recommended. BI-RADS Category 2: Benign finding(s). Reviewed, dictated and finalized at location A. WASHER IMPRESSION: Sonographically detected left breast mass with interval decrease in size, most consistent with clustered microcysts. Routine annual screening mammography is r ecommended. BI-RADS Category 2: Benign finding(s).
== END 2023-05-15 09:59 | disposition home or self-care (01) ==
PROVIDERS: PCP Family Medicine; Visit Provider Obstetrics & Gynecology
DX: N63.20 Unspecified lump in the left breast, unspecified quadrant (principal); R92.8 Other abnormal and inconclusive findings on diagnostic imaging of breast
CPT/HCPCS: 76642

== ENCOUNTER 2023-06-16 10:42 | Outpatient (CLI) | payer MEDICARE, SELFPAY ==
--- NOTE | ~2023-06-16 | CT_ITS ---
CT Scan of the Chest without Contrast: Clinical Indication: Nonspecific abnormal finding of lung field, pulmonary nodule Technique: Contiguous sections were acquired throughout the chest without intravenous contrast. Dose reduction technique was used on this scan by utilizing automated exposure control and iterative recon struction technique. The dose-length product (DLP) was 141.12 mGy-cm. COMPARISON: 06/17/2022 Findings: There is no evidence of any significant mediastinal, hilar or axillary lymphadenopathy. The mediastin al soft tissues appear normal. There is no evidence of pleural or pericardial effusion. Stable calcified right upper lobe granuloma noted. Stable somewhat tubular nodule at the right lung b ase. Stable 3 mm left lower lobe pulmonary nodules. Stable subcentimeter left upper lobe pulmonary no dule. Images through the upper abdomen reveal small hiatal hernia and calcified splenic granulomas. Impression: Stable pulmonary nodules, as above. Stability suggests benignity. Reviewed, dictated and finalized at [facility]. 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 Stability suggests benignity.
== END 2023-06-16 10:43 | disposition home or self-care (01) ==
PROVIDERS: PCP Family Medicine; Visit Provider Internal Medicine Pulmonary Disease
DX: R91.8 Other nonspecific abnormal finding of lung field (principal)
CPT/HCPCS: 71250

== ENCOUNTER 2023-07-17 11:07 | Outpatient (CLI) | payer MEDICARE, SELFPAY ==
[2023-07-17 11:34] LABS: Basophils Percent Auto 0.3 % (0.2-1.2); Eosinophils Absolute Auto 0.1 K/mm3 (0-0.3); Eosinophils Percent Auto 1.8 % (0-4.4); Hematocrit 41.9 % (37.0-47.0); Hemoglobin 13.7 g/dL (12.0-15.0); Immature Granulocyte Absolute 0.01 K/mm3 (0.00-0.031); Immature Granulocyte Percent A 0.1 % (0-0.5); Lymphocytes Percent Auto 19.1 % (18.3-44.2); Mean Corpuscular HGB Conc 32.7 g/dl (32-36); Mean Corpuscular Hemoglobin 30.6 pg (26-34); Mean Corpuscular Volume 93.7 fl (80-100); Mean Platelet Volume 10.7 fl (7.4-10.4); Monocytes Absolute Auto 0.6 K/mm3 (0.1-0.6); Monocytes Percent Auto 7.7 % (2.6-8.5); Neutrophils Absolute Auto 5.2 K/mm3 (1.3-6.7); Platelet Count Result 228 k/mm3 (150-375); Red Blood Count 4.47 M/mm3 (4.2-5.4); Red Cell Distribution Width 13.6 % (11.5-14.5); White Blood Count 7.3 K/mm3 (4.5-10.0)
[2023-07-17 11:50] LABS: Alanine Aminotransferase 8 U/L (6-35); Albumin Level 3.6 g/dL (3.5-5.1); Alkaline Phosphatase 80 U/L (38-126); Anion Gap 3 mmol/L (8-16); Aspartate Amino Transferase 35 U/L (14-36); Bilirubin,Total 0.4 mg/dL (0.2-1.3); Blood Urea Nitrogen 21 mg/dL (7-17); Calcium 9.5 mg/dL (8.4-10.2); Carbon Dioxide 30 mmol/L (22-30); Chloride 104 mmol/L (98-107); Estimated Glomerular Filt Rate > 60; Glucose 116 mg/dL (65-110); Potassium 4.5 mmol/L (3.4-5.0); Sodium 137 mmol/L (137-145)
== END 2023-07-17 11:08 | disposition home or self-care (01) ==
PROVIDERS: PCP Family Medicine
DX: K22.70 Barrett's esophagus without dysplasia (principal); K21.9 Gastro-esophageal reflux disease without esophagitis
CPT/HCPCS: 36415; 80053; 85025

== ENCOUNTER 2023-09-03 03:05 | Day surgery (SDC) | payer MEDICARE, SELFPAY ==
[2023-09-02 17:28] VITALS: BMI 32.7
[2023-09-03] VITALS (22 sets, daily range): BP systolic 105–142; BP diastolic 58–88; PULSE 50–66; RESP 14–23; TEMP 36.8–37.2; O2SAT 92–99; BMI 32.7
[2023-09-03 09:10] LABS: Basophils Percent Auto 0.6 % (0.2-1.2); Eosinophils Absolute Auto 0.2 K/mm3 (0-0.3); Eosinophils Percent Auto 2.7 % (0-4.4); Hematocrit 44.6 % (37.0-47.0); Hemoglobin 14.5 g/dL (12.0-15.0); Immature Granulocyte Absolute 0.01 K/mm3 (0.00-0.031); Immature Granulocyte Percent A 0.2 % (0-0.5); Lymphocytes Absolute Auto 1.51 K/mm3 (0.9-3.2); Mean Corpuscular HGB Conc 32.5 g/dl (32-36); Mean Corpuscular Hemoglobin 30.9 pg (26-34); Mean Corpuscular Volume 95.1 fl (80-100); Mean Platelet Volume 11.3 fl (7.4-10.4); Monocytes Absolute Auto 0.4 K/mm3 (0.1-0.6); Monocytes Percent Auto 6.8 % (2.6-8.5); Neutrophils Absolute Auto 4.1 K/mm3 (1.3-6.7); Neutrophils Percent Auto 65.7 % (45.5-73.1); Platelet Count Result 225 k/mm3 (150-375); Red Blood Count 4.69 M/mm3 (4.2-5.4); Red Cell Distribution Width 13.7 % (11.5-14.5); White Blood Count 6.3 K/mm3 (4.5-10.0)
[2023-09-03 09:25] LABS: Anion Gap 5 mmol/L (4-12); Blood Urea Nitrogen 20 mg/dL (7-17); Calcium 9.3 mg/dL (8.4-10.2); Carbon Dioxide 27 mmol/L (22-30); Chloride 106 mmol/L (98-107); Estimated CRCL calculation 65 ml/min; Estimated Glomerular Filt Rate > 60; Glucose 94 mg/dL (65-110); Potassium 3.8 mmol/L (3.4-5.0); Sodium 138 mmol/L (137-145)
--- NOTE | 2023-09-03 10:27 | PM.IMHP ---
H&P: HPI History of Present Illness Date/Time: 09/03/23 10:27 Chief Complaint: Dyspnea Narrative: Patient is a 72 year old female with aortic aneurysm, hypertension, Jimenez's esophagus, hyperlipidemia, hyperthyroidism, COPD who has been having dyspnea on exertion. Coronary CTA was obtained which showed mild disease in the RCA and LCX with a borderline moderate-severe stenosis in the mid LAD. Given the coronary CTA findings along with her dyspnea on exertion, she has been referred for RHC and LHC. Patient states she is normally a DNR, however, she is agreeable to be FULL CODE for the procedure. Review of Systems Review of Systems: All systems reviewed & are unremarkable except as noted in HPI and below (HPI) [facility] Past Medical History Medical History Anxiety and depression Arthritis Jimenez's esophageal ulceration 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 Barretts esophagus Benign essential HTN Body mass index (BMI) 35 or more (12/29/18) Breasts asymmetrical COPD (chronic obstructive pulmonary disease) Esophageal stricture Essential (primary) hypertension MARILYN (generalized anxiety disorder) Heart murmur Hyperthyroidism Ischemic colitis Low TSH level MDD (major depressive disorder), recurrent episode, moderate Mixed hyperlipidemia Post-menopausal Pulmonary nodules Rheumatic fever x2 Thyroid nodule Vitamin D deficiency, unspecified Surgical History Surgical History History of ankle surgery (~2004) compound fracture rt ankle--2 surgeries History of hernia repair (~12/2016) History of repair of hiatal hernia (~2007) Status post balloon dilatation of esophageal stricture Family History Family History Father Family history of premature coronary heart disease Hypertension Acute myocardial infarction Heart disease Mother Family history of malignant neoplasm of breast in first degree relative Patient's mother is Diabetes mellitus Neoplasm of ovary Breast cancer Depression Other Carcinoma of colon maternal aunt Social History Social History Social History: Single Smoking packs per day: 0.5 Smoking cigarettes per day: 10.0 Years smoked: 20 Smoking pack-years: 10.00 Smoking status: Current some day smoker Tobacco type: cigarettes Second hand tobacco smoke exposure: No Alcohol intake: current Drinks per week: 1 Alcohol use details: beer 1-2 per month Substance use: never Substance use type: does not use Lack of Transportation: No Lack of Food: Never True Current Housing: I Have Housing Concerned About Future Housing: No Difficulty Paying Gas/Electric Bills: No Difficulty Paying for Meds: No Currently Unemployed: YES Education: Master's Degree or Higher Difficulty w/ Childcare or Family Care: No Living arrangements: alone Occupation/Education: retired Gender identity (if verbalized by the patient): Female Sexual Orientation (if Verbalized by the Patient): Straight or Heterosexual Spiritual care concerns: No Agree to blood products: Yes Meds Home Medications and Allergies Home Medications Medication Instructions Recorded Confirmed Type omeprazole 20 mg capsule,delayed 20 mg PO DAILY 10/22/19 09/03/23 History release evolocumab 420 mg/3.5 mL 420 mg subcut MONTHLY 12/31/21 09/02/23 History subcutaneous wearable injector (Repatha Pushtronex) albuterol sulfate 90 mcg/actuation 1 inh inhalation Q4H PRN shortness 07/19/22 09/02/23 Rx aerosol inhaler (ProAir HFA) of breath or wheezing #8.5 grams multivitamin 1 tablet PO DAILY 01/08/23 09/03/23 History methimazole 5 mg tablet 2.5 mg PO DAILY #90 tabs 04/18/23 09/03/23 Rx fluticasone fur. 100 mcg-umeclid 1 inh inhalation DAILY copd #30 08/22/2309/01
--- NOTE | 2023-09-03 10:32 | WPDMODSED ---
Moderate Sedation Note-Pt Data Patient Data Diagnosis: Dyspnea on exertion, abnormal CCTA Present Complaint: Dyspnea on exertion, abnormal CCTA Procedure to be performed/Plan: Coronary angiography, left heart cath, right heart cath +/- PCI Allergies Allergy/AdvReac Type Severity Reaction Status Date / Time Penicillins Allergy Intermediate hives Verified 09/03/23 09:06 erythromycin base AdvReac Unknown Vomiting Verified 09/03/23 09:06 Home Medications Medication Instructions Recorded Confirmed Type omeprazole 20 mg capsule,delayed 20 mg PO DAILY 10/22/19 09/03/23 History release evolocumab 420 mg/3.5 mL 420 mg subcut MONTHLY 12/31/21 09/02/23 History subcutaneous wearable injector (Repatha Pushtronex) albuterol sulfate 90 mcg/actuation 1 inh inhalation Q4H PRN shortness 07/19/22 09/02/23 Rx aerosol inhaler (ProAir HFA) of breath or wheezing #8.5 grams multivitamin 1 tablet PO DAILY 01/08/23 09/03/23 History methimazole 5 mg tablet 2.5 mg PO DAILY #90 tabs 04/18/23 09/03/23 Rx fluticasone fur. 100 mcg-umeclid 1 inh inhalation DAILY copd #30 08/22/23 09/02/23 Rx 62.5 mcg-vilant 25 mcg inhalations inhalat.powder (Trelegy Ellipta) diltiazem HCl 180 mg capsule,24 180 mg PO DAILY 09/03/23 09/03/23 History hr,extended release venlafaxine 37.5 mg tablet 37.5 mg PO DAILY 09/03/23 09/03/23 History Current Medications: Active Medications Sodium Chloride (Normal Saline Iv) 500 mls @ 100 mls/hr IV CONT .Q5H FARHANA Sedation/Anesthesia: No previous sedation/anesthesia problems (including family history). [facility] Past Medical History Medical History Anxiety and depression Arthritis Jimenez's esophageal ulceration 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 Barretts esophagus Benign essential HTN Body mass index (BMI) 35 or more (12/29/18) Breasts asymmetrical COPD (chronic obstructive pulmonary disease) Esophageal stricture Essential (primary) hypertension MARILYN (generalized anxiety disorder) Heart murmur Hyperthyroidism Ischemic colitis Low TSH level MDD (major depressive disorder), recurrent episode, moderate Mixed hyperlipidemia Post-menopausal Pulmonary nodules Rheumatic fever x2 Thyroid nodule Vitamin D deficiency, unspecified Surgical History Surgical History History of ankle surgery (~2004) compound fracture rt ankle--2 surgeries History of hernia repair (~12/2016) History of repair of hiatal hernia (~2007) Status post balloon dilatation of esophageal stricture Family History Family History Father Family history of premature coronary heart disease Hypertension Acute myocardial infarction Heart disease Mother Family history of malignant neoplasm of breast in first degree relative Patient's mother is Diabetes mellitus Neoplasm of ovary Breast cancer Depression Other Carcinoma of colon maternal aunt Social History Social History Social History: Single Smoking packs per day: 0.5 Smoking cigarettes per day: 10.0 Years smoked: 20 Smoking pack-years: 10.00 Smoking status: Current some day smoker Tobacco type: cigarettes Second hand tobacco smoke exposure: No Alcohol intake: current Drinks per week: 1 Alcohol use details: beer 1-2 per month Substance use: never Substance use type: does not use Lack of Transportation: No Lack of Food: Never True Current Housing: I Have Housing Concerned About Future Housing: No Difficulty Paying Gas/Electric Bills: No Difficulty Paying for Meds: No Currently Unemployed: YES Education: Master's Degree or Higher Difficulty w/ Childcare or Family Care: No Living arrangements: alone Occupation/Education: retired Gender identity (if verbalized by the patient): Femal
--- NOTE | 2023-09-03 10:33 | WPDCARDPROC ---
Cardiac Cath Procedure Note Date of procedure:: 09/03/23 Performing physician:: CATHETERIZATION LABORATORY REPORT Procedure Date: 09/03/2023 Placement Specialist: José Miguel Collins M.D., [facility]? Referring Physician: Aníbal Keita M.D. ? Anesthesia: Versed and Fentanyl were ordered and given in my presence at 10:33, procedure ended at 11:25. Supervision of nurse monitored moderate sedation with Versed and Fentanyl was provided for 52 minutes. Total of Versed 2mg, Fentanyl 100mcg, and Morphine 2mg IV were administered by the Cotton Tier LILIAN Holguin Pre-op Diagnosis: Coronary artery disease Post-op Diagnosis: 1. Non-obstructive coronary artery disease 2. Mildly elevated right heart filling pressures 3. Pre-capillary pulmonary hypertension with mean pulmonary artery pressure of 21mmHg 4. Preserved cardiac output of 7.2 by Jostin 5. Preserved cardiac index of 3.7 by Jostin Procedure(s): 1. Moderate sedation 2. Ultrasound guided access of the right common femoral artery and the right femoral vein 3. Right heart cath 4. Coronary angiography Access Site: Right common femoral artery Right femoral vein Brief History and Clinical Indications: Patient is a 72 year old female with aortic aneurysm, hypertension, Jimenez's esophagus, hyperlipidemia, hyperthyroidism, COPD who has been having dyspnea on exertion. Coronary CTA was obtained which showed mild disease in the RCA and LCX with a borderline moderate-severe stenosis in the mid LAD. Given the coronary CTA findings along with her dyspnea on exertion, she has been referred for RHC and LHC. All risks, benefits and alternatives to left heart catheterization with or without percutaneous coronary intervention was discussed at length with the patient. Risk of complications including but not limited to bleeding, infection, arrhythmia, stroke, worsening kidney function, blood loss, groin hematoma, limb loss, emergency coronary artery bypass grafting, and even were discussed with the patient and all questions were answered. The patient understood and wished to proceed. Time out called, patient name, date of , medical record number, allergies, procedure performed, identify Placement Specialist, patient and staff member concurred with accurate data, procedure carried on. Findings: LEFT HEART CATHETERIZATION FINDINGS: 1. Left main: The left main coronary artery is widely patent without any significant obstructive disease. 2. Left anterior descending: The proximal portion of the LAD is ectatic. The proximal and mid portion of the LAD has mild diffuse disease. Distal LAD has luminal irregularities. The first diagonal branch has mild ostial disease. The second diagonal branch has mild diffuse disease in its proximal and mid portion. No significant obstructive angiographic disease. 3. Left circumflex: The left circumflex artery has mild diffuse disease. No significant obstructive angiographic disease. 4. Right coronary artery: The RCA has mild diffuse disease without any significant obstructive angiographic disease. The RCA is the dominant vessel. RIGHT HEART CATHETERIZATION FINDINGS: Pressures (mmHg): RA: 7 RV: 36/10 PA: 33/13mmHg with mean of 21mmHg PCWP: 11 Saturations (%): PA: 74.8% Arterial: 91.8% CO/CI: Jostin CO: 7.2 Jostin CI: 3.7 PVR (): 2.7 Description of Procedure: Informed consent signed and placed in the chart. Patient transferred to garden labourer room. Prepped and draped in usual sterile fashion. 2% lidocaine injected subcutaneously in right groin area. Micropuncture needle used to access right common femoral artery with Seldinger technique under fluoroscopic and ultrasound guidance. J wire advanced, micropuncture cannula placed. Right iliofemoral angiogram performed, access confirmed and micropuncture cannula exchanged for 5-FR sheath. Right femoral vein was accessed using micropuncture technique under ultrasound guidance. 7-FR sheath placed. 7F [place]-Fidelia catheter wa
[2023-09-03] MEDS: HYDROcodone/acetaminophen (*CRX) 5-325 MG TABLET 1 TAB PO (12:10)
[2023-09-03] MEDS: MORPHINE SULFATE (*CRX) 2 MG/ML INJ (12:11)
[2023-09-03] MEDS: SODIUM CHLORIDE 0.9% IV 1,000 ML 125 ML IV CONT (12:23)
== END 2023-09-03 17:45 | disposition home or self-care (01) ==
PROVIDERS: PCP Family Medicine; Visit Provider Internal Medicine
PROC: 4A023N8 Measurement of Cardiac Sampling and Pressure, Bilateral, Percutaneous Approach (ICD-10-PCS; CPT 93453; principal; 2023-09-03 10:00)
DX: I25.10 Atherosclerotic heart disease of native coronary artery without angina pectoris (principal); R93.1 Abnormal findings on diagnostic imaging of heart and coronary circulation; I10 Essential (primary) hypertension; E78.2 Mixed hyperlipidemia; J44.9 Chronic obstructive pulmonary disease, unspecified; E05.90 Thyrotoxicosis, unspecified without thyrotoxic crisis or storm; I71.40 Abdominal aortic aneurysm, without rupture, unspecified; Z79.51 Long term (current) use of inhaled steroids; F41.1 Generalized anxiety disorder; F33.1 Major depressive disorder, recurrent, moderate; F17.210 Nicotine dependence, cigarettes, uncomplicated
CPT/HCPCS: 36415; 80048; 85025; 85610; 93460; A9270; C1769; C1887; C1894; J0461; J1644; J2250; J2270; J3010; J7030; J7040

== ENCOUNTER 2024-03-01 08:48 | Outpatient (CLI) | payer MEDICARE, SELFPAY ==
--- NOTE | ~2024-03-01 | DEXA_ITS ---
Bone Density Report Name: CAROL RANGEL Age: 73 Sex: Female Ethnicity: White Date of : 1950 Indication: postmenopausal osteoporosis; height loss; Referring Provider: RENA MENDES Study: Bone densitometry was performed. Exam Date: March 01, 2024 Accession number: [id number] Bone Density: Region BMD T-score Z-score Classification AP Spine(L1-L4) 1.049 0.0 2.4 Normal Femoral Neck (Left) 0.868 0.2 2.3 Normal Total Hip (Left) 0.759 -1.5 0.3 Osteopenia Femoral Neck (Right) 0.844 0.0 2.0 Normal Total Hip (Right) 0.725 -1.8 0.0 Osteopenia Total Hip Mean 0.742 -1.7 0.2 Osteopenia World Health Organization criteria for BMD impression classify patients as: Normal (T-score at or above -1.0), Osteopenia (T-score between -1.0 and -2.5), or Osteoporosis (T-score at or below -2.5). 10-year Fracture Risk(1): Major Osteoporotic Fracture 7.2% Hip Fracture 0.6% Reported Risk Factors: [place] (), Neck BMD=0.844, BMI=35.1 (1) FRAX(R) Version 3.08. Fracture probability calculated for an untreated patient. Fracture probability may be lower if the patient has received treatment. Previous Exams: Region Exam Age BMD T-score BMD Change BMD Change Date g/cm2 vs Baseline vs Previous AP Spine (L1-L4) 03/01/2024 73 1.049 0.0 0.086 (9.0%)* 0.086 (9.0%)* 12/27/2020 70 0.962 -0.8 Total Hip(Left) 03/01/2024 73 0.759 -1.5 0.019 (2.6%) 0.019 (2.6%) 12/27/2020 70 0.740 -1.7 Total Hip(Right) 03/01/2024 73 0.725 -1.8 0.092 (14.5%)# 0.092 (14.5%)# 12/27/2020 70 0.634 -2.5 *Denotes significance at 95% confidence level, LSC for AP Spine = 0.022 g/cm2, LSC for Total Hip = 0.027 g/cm2 # Denotes dissimilar scan types or analysis methods Clinical Information Provided by Patient: Patient maximum height was 64.5 Menopause Age: 45 Drinks caffeinated beverages Onset of menses at age 10 Number of children 0 Impression: The patient has low bone mass, based on the Right Total Hip T-score. The patient has an estimated ten-year risk of hip fracture of 0.6% and an estimated ten-year risk of major fracture of 7.2%, based on the WHO FRAX algorithm. No significant bone loss was observed. Discussion: BONE DENSITY IS LOW AT ONE OR MORE SKELETAL SITES. This patient's lowest T-score is low at one or more skeletal sites. It meets the World Health Organization's (WHO) criteria for ?low bone mass? (T-score between
== END 2024-03-01 08:49 | disposition home or self-care (01) ==
PROVIDERS: PCP Family Medicine; Visit Provider Internal Medicine
DX: M81.0 Age-related osteoporosis without current pathological fracture (principal); M85.852 Other specified disorders of bone density and structure, left thigh; M85.851 Other specified disorders of bone density and structure, right thigh
CPT/HCPCS: 77080

== ENCOUNTER 2024-05-17 14:46 | Outpatient (CLI) | payer MEDICARE, SELFPAY ==
--- NOTE | ~2024-05-17 | XR_ITS ---
EXAM: XR shoulder LT min 2V, XR shoulder RT min 2V DATE: 05/17/2024 15:19 (accession [id number]), 05/17/2024 15:20 (accession [id number]) HISTORY: W19.XXXA - Unspecified fall, initial encounter. FALL NOV . COMPARISON: None available. FINDINGS: Osteopenia. No fracture or dislocation. No lytic or blastic lesion. Bilateral degenerative changes at the AC joint, severe on the right and moderate on the left. Mild bilateral glenohumeral j oint degenerative change. Moderate inferior acromial enthesopathy bilaterally. No erosion or perioste al change. Calcified hilar lymph nodes. IMPRESSION: No acute osseous finding in the right or left shoulders. Reviewed, dictated and finalized at location K. LING MACHINE OPERATOR IMPRESSION: No acute osseous finding in the right or left shoulders.
--- NOTE | ~2024-05-17 | XR_ITS ---
Cervical Spine: AP, lateral, open-mouth views Clinical History: Pain Findings: The normal lordotic curve is maintained. No acute fracture seen. There is minimal grade 1 a nterolisthesis of C4 over C5. There is severe degenerative disc narrowing at C5-C6 and C6-C7. There i s advanced facet arthropathy throughout the cervical spine. Pre-vertebral soft tissues are unremarkab le. Impression: Advanced degenerative spondylosis of the cervical spine, as above. Reviewed, dictated and finalized at location M. UNT REPRESENTATIVE Impression: Advanced degenerative spondylosis of the cervical spine, as above.
== END 2024-05-17 14:47 | disposition home or self-care (01) ==
PROVIDERS: PCP Family Medicine; Visit Provider Student in an Organized Health Care Education/Training Program
DX: M47.892 Other spondylosis, cervical region (principal); M25.511 Pain in right shoulder; M25.512 Pain in left shoulder; W19.XXXA Unspecified fall, initial encounter
CPT/HCPCS: 72040; 73030

== ENCOUNTER 2024-06-07 09:57 | Outpatient (CLI) | payer MEDICARE, SELFPAY ==
--- NOTE | ~2024-06-07 | CT_ITS ---
EXAMINATION:CT diagnostic chest wo con DATE: 06/07/2024 10:38 INDICATION: Solitary pulmonary nodule. TECHNIQUE: Computed tomography (CT) of the chest was performed without intravenous contrast. Automate d exposure control and iterative reconstruction technique were employed. The dose-length product (DLP ) was 97.40 mGy-cm. COMPARISON: Chest CT 06/16/2023 FINDINGS: There is mild atelectasis bilaterally. There are a few stable nodules in the lungs measurin g up to 9 mm in right lower lobe. Calcified pulmonary nodules and calcified mediastinal lymph nodes a re consistent with old granulomatous disease. There is a new 5 mm nodule in right lower lobe. No pleu ral effusion. The heart size is normal. There are coronary artery calcifications. No pericardial effu petros. There is ectasia of ascending aorta measuring 4.1 cm. There is a small sliding hiatal hernia. C alcifications in the spleen are consistent with old granulomatous disease. IMPRESSION: 1. Lung-RADS category 3: Probably benign. Further evaluation is recommended with noncontrast low-dose chest CT in 6 months. Reviewed, dictated and finalized at location A. RPROOF BAG CUTTING MACHINE OPERATOR IMPRESSION: 1. Lung-RADS category 3: Probably benign. Further evaluation is recommended wit h noncontrast low-dose chest CT in 6 months.
== END 2024-06-07 09:58 | disposition home or self-care (01) ==
PROVIDERS: PCP Family Medicine; Visit Provider Internal Medicine Pulmonary Disease
DX: R91.1 Solitary pulmonary nodule (principal)
CPT/HCPCS: 71250

== ENCOUNTER 2025-02-19 18:09 | Inpatient (IN) | payer MEDICARE, SELFPAY ==
[2025-02-19] VITALS (18 sets, daily range): BP systolic 92–134; BP diastolic 55–94; PULSE 89–127; RESP 7–30; TEMP 36.4–37.1; O2SAT 92–100; BMI 30.9; BMI 32.3
--- NOTE | ~2025-02-19 | XR_ITS ---
EXAMINATION: XR chest 2V, 02/19/2025 18:50 CDT HISTORY: sob COMPARISON: No comparisons available. Technique: 2 views obtained. Findings: CBD changes otherwise the lungs are clear No pneumothorax. Heart is normal size. Mediastinal and hilar contours are within normal limits. Bony thorax no acute abnormality. Impression: No acute cardiopulmonary abnormality. Reviewed, dictated and finalized at location A. Impression: No acute cardiopulmonary abnormality.
--- OUTSIDE RECORDS SUMMARY | 2025-02-19 17:15 | XMS_ITS | Encounter Summary ---
Author Organization [facility] Healthcare Address [address] [place] [address] Care Team Providers Care Process Owner Name Role Phone Vickie Marti NP Primary Care Provider [phone] Reason for Visit * Reason Comments Shortness of Breath Encounter Details Date Type Department Care Team (Late st Contact Info) Description 02/19/2025 5:15 PM CDT Office Visit [facility] Medical Group Convenient Care at [address] [address] Jose Luis Almaguer NP [address] [place] [address] [address] [place] [address] Shortness of breath (Primary Dx) Social History Tobacco Use Types Packs/Day Years Used Date Smoking Tobacco: Former Cigarettes Smokeless Tobacco: Never AUDIT-C Answer Date Recorded Q1: How often do you have a drink containing alc ohol? 2-4 times a month 07/05/2024 Q2: How many drinks containi ng alcohol do you have on a typical day when you are drinking? 1 or 2 07/05/2024 Frequency of Binge Drinking Not on file 06/10 Personal Safety Answer Date Recorded Have you ever been in or are you currently in a harmful physical or emotional relationship or is someone making you feel afraid or unsafe? Denies 07/05/2024 Comments Unknown Sex and Gender Information Value Date Recorded Sex Assigned at Not on file Legal Sex Female 4:03 AM SEWAGE SCREEN OPERATOR Gender Identity Not on file Sexual Orientation Not on file documented as of this encounter Last Filed Vital Signs Vital Sign Reading Time Taken Comments Blood Pressure 121/87 02/19/2025 4:46 PM CDT Pulse 110 02/19/2025 4:46 PM CDT Temperature 37.2 C (98.9 F) 02/19/2025 4:46 PM CDT Respiratory Rate 30 02/19/2025 5:17 PM CDT Oxygen Saturation 93% 02/19/2025 5:17 PM CDT Inhaled Oxygen Concentration - - Weight - - Height - - Body Mass Index - - documented in this encounter Plan of Treatment Not on file documented as of this encounter Visit Diagnoses Diagnosis Shortness of breath- Primary documented in this encounter Care Teams Process Owner Relationship Specialty Start Date End Date Vickie Marti NP [address] [place] [address] PCP - General Nurse Practitioner 02/08/25 documented as of this encounter
--- OUTSIDE RECORDS SUMMARY | 2025-02-19 17:15 | XMS_ITS | Encounter Summary ---
Author Organization [facility] Healthcare Address [address] [place] [address] Care Team Providers Care Physiotherapy Assistant Name Role Phone Vickie Marti NP Primary Care Provider [phone] Reason for Visit * Reason Comments Shortness of Breath Encounter Details Date Type Department Care Team (Late st Contact Info) Description 02/19/2025 5:15 PM CDT Office Visit [facility] Medical Group Convenient Care at [address] [address] Jose Luis Almaguer NP [address] [place] [address] [address] [place] [address] Shortness of breath (Primary Dx) [...] on file Legal Sex Female 4:03 AM RESEARCH TEST ENGINE OPERATOR Gender Identity Not on file Sexual [...] Primary documented in this encounter Care Teams Physiotherapy Assistant Relationship Specialty Start Date End Date Vickie Marti NP [address] [place] [address] PCP - General Nurse Practitioner 02/08/25 documented as of this encounter
--- OUTSIDE RECORDS SUMMARY | 2025-02-19 18:12 | XMS_ITS | Encounter Summary ---
Author Organization [facility] Address [address] [place] [address] Phone Care Team Providers Care Cementer Helper Name Role Phone Shayy Olivares MD Primary Care Provider [phone] Donna Cazares APRN, BIOTECHNICIAN Unavailable Reason for Visit * Reason Comments Medication Refill Encounter Details Date Type Department Care Team (Late st Contact Info) Description 11/08/2021 Refill [facility] - Gastroenterology - [place] [address] [place] [id number] Radha Schaefer Dorys, PAC [address] [place] [address] Medication Refill Social History Tobacco Use Types Packs/Day Years Used Date Smoking Tobacco: Some Days Cigarettes 1 20 Smokeless Tobacco: Never Alcohol Use Standard Drinks/Week Comments Yes 0 (1 standard drink = 0.6 oz pur e alcohol) 2 beers per month Sexually Active Control Partners Comments Not Currently Comments No Sex and Gender Information Value Date Recorded Sex Assigned at Not on file Legal Sex Female 10:09 PM CDT Gender Identity Not on file Sexual Orientation Not on file 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 documented in this encounter Plan of Treatment Not on file documented as of this encounter Visit Diagnoses Not on filedocumented in this encounter Care Teams Cementer Helper Relationship Specialty Start Date End Date Shayy Olivares MD [address] [facility] [address] [place] [address] PCP - General Family Medicine 11/12/16 Donna Cazares APRN, BIOTECHNICIAN [address] [place] [address] Nurse Practitioner Advanced Practice Nurse 05/26/23 documented as of this encounter
--- OUTSIDE RECORDS SUMMARY | 2025-02-19 18:12 | XMS_ITS | Encounter Summary ---
Author Organization [facility] Address [address] [place] [address] Phone Care Team Providers Care Legal Services Professional Name Role Phone Shayy Olivares MD Primary Care Provider [phone] Donna Cazares APRN, ENVIRONMENTAL SERVICES LEAD Unavailable Reason for Visit * Reason Comments Medication Refill Encounter Details Date Type Department Care Team (Late st Contact Info) Description 06/25/2024 Refill [facility] - Gastroenterology - [place] [address] [place] [address] Donna Cazares APRN, ENVIRONMENTAL SERVICES LEAD [address] [place] [address] Medication Refill Social History Tobacco Use Types Packs/Day Years Used Date Smoking Tobacco: Some Days Cigarettes 1 20 Smokeless Tobacco: Never Alcohol Use Standard Drinks/Week Comments Yes 0 (1 standard drink = 0.6 oz pur e alcohol) Rare Sexually Active Control Partners Comments Not Currently Comments No Sex and Gender Information Value Date Recorded Sex Assigned at Not on file Legal Sex Female 10:09 PM CDT Gender Identity Not on file Sexual Orientation Not on file 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 [employer] * Telephone Encounter - Kezia Landaverde RN - 06/28/2024 8:29 AM LABORER PULLET [employer]ARM Pharmacy requesting refill of: Requested Prescriptions Pending Prescriptions Disp Refills omeprazole (PriLOSEC) 40 MG CAPSULE DELAYED RELEASE [Pharmacy Med Name: OMEPRAZOLE 40MG CAPSULES] 90 Capsule 0 Sig: TAKE 1 CAPSULE BY MOUTH DAILY Last fill: 03/10/2024 Patients last OV with GI: 05/26/2023 Next Office Visit with GI: none scheduled. Called patient to offer an appt. Patient scheduled for 07/27/2024. [employer] documented in this encounter Plan of Treatment Not on file documented as of this encounter Visit Diagnoses Not on filedocumented in this encounter Care Teams Legal Services Professional Relationship Specialty Start Date End Date Shayy Olivares MD [address] [facility] [address] [place] [address] PCP - General Family Medicine 11/12/16 Donna Cazares APRN, CNP [address] [place] [address] Nurse Practitioner Advanced Practice Nurse 05/26/23 documented as of this encounter
--- OUTSIDE RECORDS SUMMARY | 2025-02-19 18:12 | XMS_ITS | Encounter Summary ---
Author Organization [facility] Address [address] 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 documented in this encounter Plan of Treatment Not on file documented as of this encounter Visit Diagnoses Not on filedocumented in this encounter Care Teams Information Systems Specialist Relationship Specialty Start Date End Date Shayy Olivares MD [address] [facility] [address] [place] [address] PCP - General Family Medicine 11/12/16 Donna Cazares APRN, RPG DEVELOPER [address] [place] [address] Nurse Practitioner Advanced Practice Nurse 05/26/23 documented as of this encounter
--- OUTSIDE RECORDS SUMMARY | 2025-02-19 18:12 | XMS_ITS | Encounter Summary ---
Author Organization [facility] Healthcare Address [address] [place] [address] Care Team Providers Care Ordering Box Operator Name Role Phone Vickie Marti NP Primary Care Provider [phone] Encounter Details Date Type Department Care Team (Latest Contact Info) Description 02/14/2025 Results Follow-Up [facility] Medical Group Cardiology [address] [address] Jasper Keita MD [address] [facility] [address] [address] [place] [address] [facility] C, [place] [place] [address] Transthoracic Echo (TTE) Complete W Doppler/CF Social History Tobacco Use Types Packs/Day Years [...] on file Legal Sex Female 4:03 AM WRINGER OPERATOR Gender Identity Not on file Sexual Orientation Not on file documented as of this encounter Plan of Treatment Not on file documented as of this encounter Visit Diagnoses Not on filedocumented in this encounter Care Teams Ordering Box Operator Relationship Specialty Start Date End Date Vickie Marti, ROD [address] [place] [address] PCP - General Nurse Practitioner 02/08/25 documented as of this encounter
--- OUTSIDE RECORDS SUMMARY | 2025-02-19 18:12 | XMS_ITS | Encounter Summary ---
Author Organization [facility] Address [address] 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 documented in this encounter Plan of Treatment Not on file documented as of this encounter Visit Diagnoses Not on filedocumented in this encounter Care Teams Clinical Implementation Specialist Relationship Specialty Start Date End Date Shayy Olivares MD [address] [facility] [address] [place] [address] PCP - General Family Medicine 11/12/16 Donna Cazares APRN, SOFTWARE IMPLEMENTATION PROJECT MANAGER [address] [place] [address] Nurse Practitioner Advanced Practice Nurse 05/26/23 documented as of this encounter
--- OUTSIDE RECORDS SUMMARY | 2025-02-19 18:12 | XMS_ITS | Encounter Summary ---
Author Organization [facility] Address [address] 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 FIRST ASSIST REGISTERED NURSE documented in this encounter Plan of Treatment Not on file documented as of this encounter Visit Diagnoses Not on filedocumented in this encounter Care Teams Electric Tool Repairer Relationship Specialty Start Date End Date Shayy Olivares MD [address] [facility] [address] [place] [address] PCP - General Family Medicine 11/12/16 Donna Cazares APRN, WORKFORCE PLANNER [address] [place] [address] Nurse Practitioner Advanced Practice Nurse 05/26/23 documented as of this encounter
--- OUTSIDE RECORDS SUMMARY | 2025-02-19 18:12 | XMS_ITS | Encounter Summary ---
Author Organization [facility] Address [address] 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 * Telephone Encounter - Kezia Landaverde RN - 12/05/2023 9:05 AM CDT See refill encounter from 08/28/2023. documented in this encounter Plan of Treatment Not on file documented as of this encounter Visit Diagnoses Not on filedocumented in this encounter Care Teams Sole Skiver Relationship Specialty Start Date End Date Shayy Olivares MD [address] [facility] [address] [place] [address] PCP - General Family Medicine 11/12/16 Donna Cazares APRN, SENIOR GROUP MANAGER [address] [place] [address] Nurse Practitioner Advanced Practice Nurse 05/26/23 documented as of this encounter
--- OUTSIDE RECORDS SUMMARY | 2025-02-19 18:12 | XMS_ITS | Clinical Summary ---
Author Organization [facility] [place] [address] Address [address] [place] [address] Care Team Providers Care Sample Paster Name Role Phone Vickie Marti NP Primary Care Provider [phone] Allergies Active Allergy Reactions Criticality Noted Date Comments Erythromycin Base Rash Medium 11/13/2021 Penicillin V Rash Medium Medications methIMAzole (TAPAZOLE) 5 mg tablet Take 5 times a week 05/28/20 21 Active venlafaxine (EFFEXOR) 37.5 mg tablet Take 1 tablet (37.5 mg total) by mouth daily 06/11/19 22 Active TURMERIC ORAL Take by mouth Ac tive evolocumab (Repatha SureClick) 140 mg/mL pen injector Inject 1 mL (140 mg total) under the skin every 14 (fourteen) days 2 mL 11 02/10/20 24 Active Trelegy Ellipta 100-62.5-25 mcg inhaler INHALE 1 PUFF BY MOUTH DAILY FOR COPD 06/15/19 25 Active fluticasone propionate (FLONASE) 50 mcg/actuation nasal spray SHAKE LIQUID AND USE 1 SPRAY IN EACH NOSTRIL DAILY 06/11/19 25 Active cyanocobalamin (Vitamin B-12) 250 mcg tablet Take 1 tablet (250 mcg total) by mouth daily Active calcium-magnes ium-zinc 333-133-5 mg tablet Take 1 tablet by mouth daily Active famotidine (PEPCID) 40 mg tablet Take 1 tablet (40 mg total) by mouth nightly Active omeprazole (PriLOSEC) 40 mg capsule Take 1 capsule (40 mg total) by mouth daily 90 capsule 3 10/01/19 25 026 Active Additional Information Patient not taking.Reported on 02/08/2025 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 30 mg tablet Take 1 tablet (30 mg total) by mouth every morning 01/24/20 25 Active dilTIAZem (CARDIZEM) 60 mg tablet Take 1 tablet (60 mg total) by mouth daily 01/24/20 25 Active diltiazem (TIAZAC) 180 mg 24 hr capsule Take 1 capsule (180 mg total) by mouth daily 05/04/20 21 025 Discontinued Active Problems Problem Noted Date Diagnosed Date Acute cystitis with hematuria 02/19/2025 AOM (acute otitis media) 02/19/2025 Anxiety 02/19/2025 Aortic aneurysm 02/19/2025 Breasts asymmetrical 02/19/2025 Cellulitis of foot 02/19/2025 COVID 02/19/2025 Dysuria 02/19/2025 MARILYN (generalized anxiety disorder) 02/19/2025 GERD with esophagitis 02/19/2025 Hyperglycemia 02/19/2025 MDD (major depressive disord er), recurrent episode, moderate 02/19/2025 Fatigue 02/19/2025 Weakness 02/19/2025 Jimenez's esophageal ulceration 02/19/2025 Edema of left lower extremity 02/19/2025 COPD (chronic obstructive pulmonary disease) SOB (shortness of breath) 02/19/2025 Ascending aortic aneurysm 02/19/2025 Coronary artery disease invo lving yerington coronary artery of yerington heart without angina pectoris 02/08/2025 Jimenez's esophagus with dysplasia 04/28/2024 LEMA (dyspnea on exertion) 07/17/2023 Atypical chest pain 07/17/2023 Bilateral lower extremity edema 11/28/2022 Nonrheumatic aortic valve stenosis 08/21/2021 Chronic obstructive pulmonary disease 07/03/2021 Former smoker 07/03/2021 Hyperthyroidism 07/03/2021 Essential hypertension 07/03/2021 Hyperlipidemia LDL goal <70 07/03/2021 Lipid screening 07/03/2021 Thoracic aortic aneurysm without rupture 022 Palpitations 07/03/2021 Tobacco abuse 07/03/2021 Gastroesophageal reflux disease without esophagi tis 03/12/2021 Jimenez's esophagus 03/12/2021 Multiple pulmonary nodules 07/29/2017 Non morbid obesity 07/29/2017 Benign essential HTN 07/29/2017 Tobacco use disorder 07/29/2017 Encounters Date Type Department Care Team Description 02/19/2025 5:15 PM CDT Office Visit [facility] Care at [address] [phone] Jose Luis Almaguer NP Shortness of breath (Primary Dx) 02/16/2025 ACO Medication Access [facility] Care Organization [address] [place] [id number] Adrienne Duncan CPhT 02/15/2025 Telephone [facility] Cardiology [address] [place] [address] [place] [phone] Romelia Loredo MD 02/14/2025 Results Follow-Up [facility] Cardiology [address] [facility] [address] [place] [phone] Romelia Loredo MD Transthoracic Echo (TTE) Complete W Doppler/CF 02/10/2025 11:15 AM CDT Ancillary Procedure [facility] Cardiology at [address] [place] [phone] Nonrheumatic aortic valve stenosis; Coronary artery disease involving yerington coronary artery of yering[place] heart without angina pectoris 02/08/2025 11:15 AM CDT Office Visit [facility] Cardiology at [address] [place] [phone] Romelia Loredo MD Nonrheumatic aortic valve stenosis (Primary Dx); Aneurysm of ascending aorta without rupture; Essential hypertension; Coronary artery disease involving yerington coronary artery of y[place] heart without angina pectoris 01/04/2025 Telephone [facility] Cardiology [address] [place] [address] [place] [phone] Romelia Loredo MD 01/04/2025 Telephone [facility] Cardiology [address] [place] [address] [address] [place] [phone] Romelia Loredo MD from Last 3 Months Immunizations Immunization Administration Dates Next Due Tdap 09/18/2024 Surgical History Surgery Date Site/Laterality Comments ESOPHAGEAL DILATION ESOPHAGOGASTRODUODENOSCOPY COLONOSCOPY BRONCHOSCOPY ANKLE SURGERY Right plate TONSILLECTOMY UPPER GASTROINTESTINAL ENDOSCOPY Medical History Medical History Date Comments MARILYN (generalized anxiety disorder) Hyperthyroidism Ischemic colitis MDD (major depressive disorder), recurrent episo de, moderate (HCC) Pulmonary nodules Jimenez's esophagus Esophageal ulcer GERD (gastroesophageal reflux disease) Esophageal stricture HTN (hypertension) HLD (hyperlipidemia) COPD (chronic obstructive pulmonary disease) Family History Medical History Relation Name Comments Coronary artery disease Father mALIGNANT NEOPLASM OF BREAST Mother Relation Name Status Comments Father Alive Mother Social History Tobacco Use Types Packs/Day Years Used Date Smoking Tobacco: Former Cigarettes Smokeless Tobacco: Never Tobacco Cessation:Counseling Given: Not Answered AUDIT-C Answer Date Recorded Q1: How often [...] on file 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 Gender Identity Not on file Sexual Orientation Not on file Obstetrics History Last Filed Vital Signs Vital Sign Reading Time Taken Comments Blood Pressure 121/87 02/19/2025 4:46 PM CDT Pulse 110 02/19/2025 4:46 PM CDT Temperature 37.2 C (98.9 F) 02/19/2025 4:46 PM CDT Respiratory Rate 30 02/19/2025 5:17 PM CDT Oxygen Saturation 93% 02/19/2025 5:17 PM CDT Inhaled Oxygen Concentration - - Weight 80.7 kg (178 lb) 02/08/2025 11:22 AM CDT Height 162.6 cm (5' 4) 02/08/2025 11:22 AM CDT Body Mass Index 30.55 02/08/2025 11:22 AM CDT Plan of Treatment Health Maintenance Due Date Last Done Comments Depression Screening 1950 Hepatitis C Screening 1950 Osteoporosis Screening-Bone Density Scan 1950 Hepatitis B Screening 1966 Pneumococcal vaccine 65+ (1 of 2 - PCV) 12/25/1967 Zoster Vaccine (1 of 2) 1998 Well Visit 65+ 2013 Covid-19 Vaccine (3 - season) 2025, 09/03/2020 Influenza Vaccine (#1) 2025 Fall Risk Assessment 07/05/2025 07/05/2024 DTaP/Tdap/Td Vaccine (2 - Td or Tdap) 09/18/203405/2025 Procedures Procedure Name Priority Date/Time Associated Diagnosis Comments TRANSTHORACIC ECHO (TTE) COMPLETE W DOPPLER/CF WO CONTRAST Routine 02/10/2025 11:45 AM CDT Nonrheumatic aortic valve stenosis Coronary artery disease involving yerington coronary artery of yering[place] heart without angina pectoris from Last 3 Months Results * TRANSTHORACIC ECHO (TTE) COMPLETE W DOPPLER/CF WO CONTRAST (02/10/2025 11:45 AM CDT) Estimated EF 60 % CONS SCIMAGE EF Mod BP 62 % CONS SCIMAGE Anatomical Region Laterality Modality Ultrasound 02/10/2025 11:0 7 AM CDT Narrative 02/10/2025 12:45 PM CDT [facility] Cardiology [address], [address], [place] [address] P:[phone] P:[phone] Echocardiographic Report Patient Name: ASYA RANGEL A : 1950 Study Date: 02/10/2025 11:07:34 AM Sex: F Environmental Protection Inspector: NATHEN Location: [facility] Ref Provider: ROMELIA LOREDO Height(Cm): 163 BSA: 1.91 Weight(Kg): 80.7 Heart Rate: 72 BP: 110 / 74 Quality: Good Order Provider: ROMELIA LOREDO PROCEDURES: Echocardiographic Report: Transthoracic echocardiogram with complete 2D, M-Mode, and color Doppler examination. With Strain Analysis. INDICATIONS: I35.0 Nonrheumatic aortic (valve) stenosis and I25.10 Atherosclerotic heart disease of yerington coronary artery without angina pectoris. MEASUREMENTS: 2D/MM Value Range Doppler Value Range EF Mod BP 62 % [ 54 - 74 ] NADER Vmax 1.96 cm2 [ 2.00 - 4.00 ] EF Teich MM 56 % [ 54 - 74 ] AV Mean PG 15 mmHg Estimated EF 60 % AV Peak Tristin 2.59 m/s [ 1.00 - 1.70 ] LV GLS -21.81 % AV Peak PG 27 mmHg LVIDd 2D 4.51 cm [ 3.80 - 5.20 ] AV VTI 52.69 cm LVIDd MM 5.58 cm [ 3.80 - 5.20 ] LVOT Diam 1.94 cm [ 1.70 - 2.10 ] LVIDs 2D 3.30 cm [ 2.20 - 3.50 ] LVOT Peak Tristin 1.72 m/s [ 0.70 - 1.10 ] LVIDs MM 3.92 cm [ 2.20 - 3.50 ] LVOT VTI 33.76 cm LVPWd 2D 1.10 cm [ 0.60 - 0.90 ] MV E Peak Tristin 0.95 m/s [ 0.60 - 1.30 ] LVPWd MM 1.30 cm [ 0.60 - 0.90 ] MV A Peak Tristin 1.27 m/s [ 1.00 - 1.20 ] IVSd 2D 1.23 cm [ 0.60 - 0.90 ] MV Decel Time 247 msec [ 104 - 258 ] IVSd MM 0.97 cm [ 0.60 - 0.90 ] PV Peak Tristin 1.44 m/s [ 0.40 - 0.80 ] LA Dimension MM 5.09 cm [ 2.70 - 3.80 ] TR Peak Tristin 2.86 m/s [ 1.00 - 2.80 ] AoR Diam MM 3.47 cm [ 2.70 - 3.70 ] TR Peak PG 33 mmHg LA Volume 35.79 ml [ 22.00 - 52.00 ] RVSP 41.00 mmHg [ 10.00 - 36.00 ] LA Volume Index 19 cc/m2 [ 16 - 28 ] RV S` 0.13 m/s ACS MM 1.17 cm Lateral E` 0.12 m/s [ 0.10 - 0.15 ] RA Volume 19.31 ml Septal E` 0.06 m/s [ 0.08 - 0.15 ] E` 0.09 m/s E/E` 11 Tapse 2.40 cm [ 1.71 - 5.00 ] 2D/MM Value Range Doppler Value Range - FINDINGS: Interpretation Site: Exam was interpreted at [facility]. Left Ventricle: Normal left ventricular systolic function. No focal wall motion abnormalities. Mild concentric left ventricular hypertrophy. Left ventricle cavity is upper limits of normal in size. Impaired diastolic relaxation Grade I. Ejection fraction is measured at 62 %. Ejection Fraction is visually estimated to be 60 %. Global Longitudinal Strain is -22 %. GLS is normal. Right Ventricle: Normal right ventricular size. Normal right ventricular systolic function. Left Atrium: There is mild enlargement of left atrium. Right Atrium: The right atrium is normal in size. Atrial Septum: Normal atrial septum. Mitral Valve: Mild mitral annular calcification. Mild mitral valve regurgitation. There is no hemodynamically significant mitral stenosis by Doppler. Aortic Valve: Mild aortic stenosis. Peak Velocity of 2.59 m/s. Peak gradient of 27.0 mmHg. Mean gradient of 15.0 mmHg. Valve area of 2 cm2. Aortic cusps appear moderately calcified. Possible bicuspid aortic valve. Mild to moderate aortic valve regurgitation. Tricuspid Valve: Normal appearance of the tricuspid valve. Mild pulmonary hypertension based on right ventricular systolic pressure. Estimated peak RVSP is 41 mmHg. Mild tricuspid regurgitation. Pulmonic Valve: Normal appearance of the pulmonic valve. No pulmonic stenosis. Trivial regurgitation in the pulmonic valve. Pericardium: Normal pericardium with no significant pericardial effusion. Aorta: Normal aortic root. IVC: Normal size and normal respiratory collapse consistent with normal right atrial pressure (<5 mmHg). CONCLUSIONS: Normal left ventricular systolic function. No focal wall motion abnormalities. Mild concentric left ventricular hypertrophy. Left ventricle cavity is upper limits of normal in size. Impaired diastolic relaxation Grade I. Ejection fraction is measured at 62 %. Global Longitudinal Strain is -22 %. GLS is normal. There is mild enlargement of left atrium. Mild mitral annular calcification. Mild mitral valve regurgitation. Mild aortic stenosis. Peak Velocity of 2.59 m/s. Peak gradient of 27.0 mmHg. Mean gradient of 15.0 mmHg. Valve area of 2 cm2. Aortic cusps appear moderately calcified. Possible bicuspid aortic valve. Mild to moderate aortic valve regurgitation. Mild pulmonary hypertension based on right ventricular systolic pressure. Estimated peak RVSP is 41 mmHg. Mild tricuspid regurgitation. Normal sinus rhythm. The aortic valve appears to be more stenotic than 2.0 cm squared but not severe. Electronically Signed By: Romelia Loredo MD 02/10/2025 12:44:28 PM CDT Procedure Note Romelia Loredo MD - 02/10/2025 [facility] Cardiology [address] [facility], [address], [place] [address] P:[phone] P:[phone] Echocardiographic Report Patient Name: ASYA RANGEL A : 1950 Study Date: 02/10/2025 11:07:34 AM Sex: F Environmental Protection Inspector: Location: [facility] Ref Provider: ROMELIA LOREDO Height(Cm): 163 BSA: 1.91 Weight(Kg): 80.7 Heart Rate: 72 BP: 110 / 74 Quality: Good Order Provider: ROMELIA LOREDO PROCEDURES: Echocardiographic Report: Transthoracic echocardiogram with complete 2D, M-Mode, and color Dopplerexamination. With Strain Analysis. INDICATIONS: I35.0 Nonrheumatic aortic (valve) stenosis and I25.10 Atheroscleroticheart disease of yerington coronary artery without angina pectoris. MEASUREMENTS: 2D/MM Value Range Doppler ValueRange EF Mod BP 62 % [ 54 - 74 ] NADER Vmax 1.96cm2 [ 2.00 - 4.00 ] EF Teich MM 56 % [ 54 - 74 ] AV Mean PG 15mmHg Estimated EF 60 % AV Peak Tristin 2.59m/s [ 1.00 - 1.70 ] LV GLS -21.81 % AV Peak PG 27mmHg LVIDd 2D 4.51 cm [ 3.80 - 5.20 ] AV VTI 52.69cm LVIDd MM 5.58 cm [ 3.80 - 5.20 ] LVOT Diam 1.94cm [ 1.70 - 2.10 ] LVIDs 2D 3.30 cm [ 2.20 - 3.50 ] LVOT Peak Tristin 1.72m/s [ 0.70 - 1.10 ] LVIDs MM 3.92 cm [ 2.20 - 3.50 ] LVOT VTI 33.76cm LVPWd 2D 1.10 cm [ 0.60 - 0.90 ] MV E Peak Tristin 0.95m/s [ 0.60 - 1.30 ] LVPWd MM 1.30 cm [ 0.60 - 0.90 ] MV A Peak Tristin 1.27m/s [ 1.00 - 1.20 ] IVSd 2D 1.23 cm [ 0.60 - 0.90 ] MV Decel Time 247msec [ 104 - 258 ] IVSd MM 0.97 cm [ 0.60 - 0.90 ] PV Peak Tristin 1.44m/s [ 0.40 - 0.80 ] LA Dimension MM 5.09 cm [ 2.70 - 3.80 ] TR Peak Tristin 2.86m/s [ 1.00 - 2.80 ] AoR Diam MM 3.47 cm [ 2.70 - 3.70 ] TR Peak PG 33mmHg LA Volume 35.79 ml [ 22.00 - 52.00 ] RVSP 41.00mmHg [ 10.00 - 36.00 ] LA Volume Index 19 cc/m2 [ 16 - 28 ] RV S` 0.13m/s ACS MM 1.17 cm Lateral E` 0.12m/s [ 0.10 - 0.15 ] RA Volume 19.31 ml Septal E` 0.06m/s [ 0.08 - 0.15 ] E` 0.09 m/s E/E` 11 Tapse 2.40 cm [ 1.71 - 5.00 ] 2D/MM Value Range Doppler ValueRange - FINDINGS: Interpretation Site: Exam was interpreted at [facility]. Left Ventricle: Normal left ventricular systolic function. No focal wall motionabnormalities. Mild concentric left ventricular hypertrophy. Left ventricle cavity is upperlimits of normal in size. Impaired diastolic relaxation Grade I. Ejection fraction ismeasured at 62 %. Ejection Fraction is visually estimated to be 60 %. Global LongitudinalStrain is -22 %. GLS is normal. Right Ventricle: Normal right ventricular size. Normal right ventricular systolicfunction. Left Atrium: There is mild enlargement of left atrium. Right Atrium: The right atrium is normal in size. Atrial Septum: Normal atrial septum. Mitral Valve: Mild mitral annular calcification. Mild mitral valve regurgitation. Thereis no hemodynamically significant mitral stenosis by Doppler. Aortic Valve: Mild aortic stenosis. Peak Velocity of 2.59 m/s. Peak gradient of 27.0mmHg. Mean gradient of 15.0 mmHg. Valve area of 2 cm2. Aortic cusps appear moderatelycalcified. Possible bicuspid aortic valve. Mild to moderate aortic valveregurgitation. Tricuspid Valve: Normal appearance of the tricuspid valve. Mild pulmonary hypertensionbased on right ventricular systolic pressure. Estimated peak RVSP is 41 mmHg. Mildtricuspid regurgitation. Pulmonic Valve: Normal appearance of the pulmonic valve. No pulmonic stenosis. Trivialregurgitation in the pulmonic valve. Pericardium: Normal pericardium with no significant pericardial effusion. Aorta: Normal aortic root. IVC: Normal size and normal respiratory collapse consistent with normal rightatrial pressure (<5 mmHg). CONCLUSIONS: Normal left ventricular systolic function. No focal wall motionabnormalities. Mild concentric left ventricular hypertrophy. Left ventricle cavity is upperlimits of normal in size. Impaired diastolic relaxation Grade I. Ejection fraction ismeasured at 62 %. Global Longitudinal Strain is -22 %. GLS is normal. There is mild enlargement of left atrium. Mild mitral annular calcification. Mild mitral valve regurgitation. Mild aortic stenosis. Peak Velocity of 2.59 m/s. Peak gradient of 27.0mmHg. Mean gradient of 15.0 mmHg. Valve area of 2 cm2. Aortic cusps appear moderatelycalcified. Possible bicuspid aortic valve. Mild to moderate aortic valveregurgitation. Mild pulmonary hypertension based on right ventricular systolic pressure.Estimated peak RVSP is 41 mmHg. Mild tricuspid regurgitation. Normal sinus rhythm. The aortic valve appears to be more stenotic than 2.0 cm squared but notsevere. Electronically Signed By: Romelia Loredo MD 02/10/2025 12:44:28 PM CDT Romelia Loredo MD CV ECHO PROCEDURES Final Result from Last 3 Months Insurance A[employer] MEDICARE AETNA MEDICARE AETNA MEDICARE Advance Directives For more information, please contact: [phone] * Full Code (Latest Code Status on File) Date Activated Date Inactivated Comments 07/05/2024 11:20 AM 07/05/2024 5:44 PM * Full Code Date Activated Date Inactivated Comments 07/05/2024 11:20 AM 07/05/2024 11:20 AM Care Teams Sample Paster Relationship Specialty Start Date End Date Vickie Marti NP [address] [place] [address] PCP - General Nurse Practitioner 02/08/25
--- OUTSIDE RECORDS SUMMARY | 2025-02-19 18:12 | XMS_ITS | Encounter Summary ---
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 Thank you. Contact: documented in this encounter Plan of Treatment Not on file documented as of this encounter Visit Diagnoses Not on filedocumented in this encounter Care Teams Air Technician Relationship Specialty Start Date End Date Vickie Marti NP [address] [place] [address] PCP - General Nurse Practitioner 02/08/25 documented as of this encounter
--- OUTSIDE RECORDS SUMMARY | 2025-02-19 18:12 | XMS_ITS | Encounter Summary ---
Author Organization [facility] Address [address] 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 Requested Prescriptions Pending Prescriptions Disp Refills omeprazole (PriLOSEC) 40 MG CAPSULE DELAYED RELEASE [Pharmacy Med Name: OMEPRAZOLE 40MG CAPSULES] 90 Capsule 0 Sig: Take 1 Capsule by mouth daily. Proton Pump Inhibitors Protocol Passed - 08/27/2023 10:21 AM Passed - Visit with relevant provider in past 12 months or upcoming 90 days Recent Visits Date Type Provider Dept 05/26/23 Office Visit Donna Cazares APRN, [facility] Showing recent visits within past 365 days and meeting all other requirements Future Appointments No visits were found meeting these conditions. Showing future appointments within next 90 days and meeting all other requirements documented in this encounter Plan of Treatment Not on file documented as of this encounter Visit Diagnoses Not on filedocumented in this encounter Care Teams Jointer Submarine Cable Relationship Specialty Start Date End Date Shayy Olivares MD [address] [facility] [address] [place] [address] PCP - General Family Medicine 11/12/16 Donna Cazares APRN, CONTRACTS ADMINISTRATOR [address] [place] [address] Nurse Practitioner Advanced Practice Nurse 05/26/23 documented as of this encounter
--- OUTSIDE RECORDS SUMMARY | 2025-02-19 18:12 | XMS_ITS | Encounter Summary ---
Author Organization [facility] Address [address] [place] [address] Phone Care Team Providers Care Survey Research Teacher Name Role Phone Shayy Olivares MD Primary Care Provider +1- [phone] Donna Cazares APRN, MEAT PRODUCTS DEMONSTRATOR Unavailable Reason for Visit * Reason Comments Medication Refill Encounter Details Date Type Department Care Team (Late st Contact Info) Description 11/07/2020 Refill [facility] - Gastroenterology - [place] [address] [place] [id number] Vignesh Rasmussen, DO 4 [facility] [place] [address] Medication Refill Social History Tobacco Use Types Packs/Day Years Used Date Smoking Tobacco: Former Cigarettes 1 20 Smokeless Tobacco: Never Alcohol Use Standard Drinks/Week Comments Yes 0 (1 standard drink = 0.6 oz pur e alcohol) 2 beers per month Comments No Sex and Gender Information Value Date Recorded Sex Assigned at Not on file Legal Sex Female 10:09 PM CDT Gender Identity Not on file Sexual Orientation Not on file 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 omeprazole (PriLOSEC) 40 MG CAPSULE DELAYED RELEASE [Pharmacy Med Name: OMEPRAZOLE 40MG CAPSULES] 90 Capsule 3 Sig: TAKE ONE CAPSULE BY MOUTH EVERY DAY Last fill: 08/13/2020 Patients last OV with GI: 01/31/2020 Next Office Visit with GI: Patient has recall for office visit for january 2021 documented in this encounter Plan of Treatment Not on file documented as of this encounter Visit Diagnoses Not on filedocumented in this encounter Care Teams Survey Research Teacher Relationship Specialty Start Date End Date Shayy Olivares MD [address] [facility] [address] [place] [address] PCP - General Family Medicine 11/12/16 Donna Cazares APRN, MEAT PRODUCTS DEMONSTRATOR [address] [place] [address] Nurse Practitioner Advanced Practice Nurse 05/26/23 documented as of this encounter
--- OUTSIDE RECORDS SUMMARY | 2025-02-19 18:12 | XMS_ITS | Encounter Summary ---
Author Organization [facility] Address [address] 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 documented in this encounter Plan of Treatment Not on file documented as of this encounter Visit Diagnoses Not on filedocumented in this encounter Care Teams Possum Trapper Relationship Specialty Start Date End Date Shayy Olivares MD [address] [facility] [address] [place] [address] PCP - General Family Medicine 11/12/16 Donna Cazares APRN, FLY FINISHER [address] [place] [address] Nurse Practitioner Advanced Practice Nurse 05/26/23 documented as of this encounter
--- OUTSIDE RECORDS SUMMARY | 2025-02-19 18:12 | XMS_ITS | Clinical Summary ---
Author Organization [facility] Address [address] [address] Phone Care Team Providers Care Supervisor Sign Shop Name Role Phone Shayy Olivares MD Primary Care Provider +1- [phone] Donna Cazares APRN, BRAZER ASSEMBLER Unavailable Allergies Active Allergy Reactions Criticality Noted Date Comments Penicillins Unknown 11/26/2016 Medications venlafaxine (EFFEXOR-XR) 37.5 MG CAPSULE SR 24 HR Take 37.5 mg by mouth daily. 3 7 Active dilTIAZem CD (CARDIZEM CD) 180 MG CAPSULE SR 24 HR Take 1 Cap by mouth daily. 1 7 Active Multiple Vitamins-Minera ls (MULTIVITAMIN PO) Take 2 Tabs by mouth daily. Active ALPRAZolam (XANAX) 0.25 MG Tablet Take 0.25 mg by mouth 3 times daily as needed. Active methIMAzole (TAPAZOLE) 5 MG Tablet 8 Active Evolocumab with Infusor (Repatha Pushtronex System) 420 MG/3.5ML Solution Cartridge 420 mg by Subcutaneous route. 2 Active omeprazole (PriLOSEC) 40 MG CAPSULE DELAYED RELEASE TAKE 1 CAPSULE BY MOUTH DAILY 90 Capsule 5 Active Active Problems Problem Noted Date Diagnosed Date 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 03/12/2021 Gastroesophageal reflux disease without esophagi tis 03/12/2021 Long-term use of high-risk medication 03/12/2021 Lung nodule, multiple 07/29/2017 Non morbid obesity 07/29/2017 Essential (primary) hypertension 07/29/2017 Tobacco use disorder 07/29/2017 Family History Medical History Relation Name Comments Heart Disease Brother Heart Disease Father Breast Cancer Mother Colon Cancer Other 1 Aunt Lung Cancer Other 2 Grandfather Relation Name Status Comments Brother Father Mother Other 1 Other 2 Social History Tobacco Use Types Packs/Day Years Used Date Smoking Tobacco: Some Days Cigarettes 1 20 Smokeless Tobacco: Never Tobacco Cessation:Ready to Q uit: Not Asked; Counseling Given: Not Answered Alcohol Use Standard Drinks/Week Comments Yes 0 (1 standard drink = 0.6 oz pur e alcohol) Rare Sexually Active Control Partners Comments Not Currently Comments No Sex and Gender Information Value Date Recorded Sex Assigned at Not on file Legal Sex Female 10:09 PM CDT Gender Identity Not on file Sexual Orientation Not on file 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 Not on file Not on file Last Filed Vital Signs Vital Sign Reading Time Taken Comments Blood Pressure 132/78 05/26/2023 11:01 AM REGISTERED OCCUPATIONAL THERAPIST Pulse 76 05/26/2023 11:01 AM REGISTERED OCCUPATIONAL THERAPIST Temperature 36.7 C (98 F) 05/26/2023 11:01 AM REGISTERED OCCUPATIONAL THERAPIST Respiratory Rate 14 05/26/2023 11:01 AM REGISTERED OCCUPATIONAL THERAPIST Oxygen Saturation 98% 05/26/2023 11:01 AM REGISTERED OCCUPATIONAL THERAPIST Inhaled Oxygen Concentration - - Weight 86.7 kg (191 lb 1.6 oz) 05/26/2023 11:01 AM REGISTERED OCCUPATIONAL THERAPIST Height 162.6 cm (5' 4) 05/26/2023 11:01 AM REGISTERED OCCUPATIONAL THERAPIST Body Mass Index 32.8 05/26/2023 11:01 AM REGISTERED OCCUPATIONAL THERAPIST Plan of Treatment Health Maintenance Due Date Last Done Comments DEXA Bone Density 1950 Hepatitis C Virus (HCV) Screening 1950 TdaP Immunization 1950 Pneumococcal Immunization (50+ years) (1 of 2 - PCV) 12/25/1967 Zoster Immunization (1 of 2) 1998 Respiratory Syncytial Virus (RSV) Immunization (Adult) (1 - 1-dose 75+ series) 12/25/2023 Influenza Immunization (#1) 2025 SARS-COV-2 Immunization ( season) 2025 09/25/2020, 09/03/2020 Colonoscopy Discontinued 11/26/2017, 11/2016, 05/08/2012, Additional history exists Colorectal Cancer Screening Discontinued Lung Cancer Screening Discontinued 02/10/2019 , 02/11/2018, 11/04/2017, Additional history exists Cologuard Discontinued Hepatitis B Immunization Aged Out No longer eligible based on patient's age to complete this topic Human Papillomavirus (HPV) Immunization Aged Out No longer eligible based on patient's age to complete this topic Immunochemical Fecal Occult Blood Discontinued Meningococcal Immunization (ACWY) Aged Out No longer eligible based on patient's age to complete this topic Rotavirus Immunization Aged Out No lo nger eligible based on patient's age to complete this topic Procedures Procedure Name Priority Date/Time Associated Diagnosis Comments CT CHEST W/O CONTRAST Routine 02/10/2019 8:11 PM CDT Lung nodule COLONOSCOPY Routine 11/26/2017 from Last 3 Months or Most Recently Relevant to Health Maintenance Results * CT CHEST W/O CONTRAST (02/10/2019 8:11 PM CDT) Anatomical Region Laterality Modality Chest N/A Computed Tomogra phy 02/11/2019 10:3 9 AM CDT Impressions 02/11/2019 10:41 AM CDT IMPRESSION: 1. Multiple stable solid pulmonary nodules/nodular opacities measuring up to 0.8 cm. Multiple areas of scattered centrilobular nodules/tree-in-bud nodularity are again noted as can be seen with atypical infection/mycobacterial infection. New ill-defined nodularity or tree-in-bud nodularity within the left lateral lower lobe. New 0.8 cm solid noncalcified nodule within the left upper lobe. Follow-up chest CT in 3-6 months is recommended. 2. Stable aneurysmal dilatation of the ascending thoracic aorta measuring up to 43 mm. 3. Sequela of old granulomatous disease. 4. Multinodular thyroid goiter. Narrative 02/11/2019 10:41 AM CDT EXAM DESCRIPTION: CT CHEST W/O CONTRAST REASON FOR STUDY: Follow up multiple bilateral pulmonary nodules. TECHNIQUE: CT scan of the chest performed without intravenous contrast using helical scanning technique. Reconstructed coronal and sagittal MPR images reviewed. All images stored on PACS. Automated exposure control was used as a dose optimization technique for this examination. COMPARISON: Chest CT 02/11/2018 and 11/04/2017 FINDINGS: The sensitivity for detection of solid visceral lesions is diminished without the use of intravenous contrast. LUNGS: There are unchanged bilateral pulmonary nodules/nodular opacities dating back to 11/04/2017 for example within the left upper lobe on axial image 24 measuring 7 mm in AP dimension, within the right upper lobe measuring 0.8 cm on axial image 61, within the right upper lobe perifissural region measuring 0.7 cm on image 69, within the right lower lobe measuring 0.8 cm on axial image 71, within the left lower lobe posteriorly measuring 0.6 cm and anteriorly measuring 4 mm on axial image 89. There are scattered centrilobular nodules for example within the right upper lobe laterally on axial image 42 and on axial image 52 as can be seen with atypical infection. There is a calcified granuloma within the right middle lobe. Ill-defined nodularity/tree-in-bud nodularity within the left lateral lower lobe on axial image 67 is new when compared to the prior study. There is a new 0.8 cm solid noncalcified nodule within the left upper lobe on axial image 34. There is mild bibasilar atelectasis. PLEURA: No effusion. No pneumothorax. MEDIASTINUM/TRACEY: There are stable prominent but nonenlarged mediastinal lymph nodes. There are calcified aortopulmonary window lymph nodes consistent with old granulomatous disease. HEART: Heart size is normal with no pericardial effusion. VASCULATURE: There is stable aneurysmal dilatation of the ascending thoracic aorta measuring up to 43 mm. AXILLA: No adenopathy. CHEST WALL: No masses. No subcutaneous air. HARDWARE/LINES/TUBES: None. UPPER ABDOMEN: Calcified splenic granulomas. There is a small sliding hiatal hernia. MUSCULOSKELETAL: There is diffuse osteopenia. There is multilevel thoracic spondylosis. OTHER: There enlargement of the thyroid gland with multiple thyroid nodules as can be seen with multinodular thyroid goiter. Findings are similar when compared to the prior study. THIS IS AN ELECTRONICALLY VERIFIED FINAL REPORT 02/11/2019 10:39 AM - Electronically signed by Jozef Hutchinson M.D. LOBITO: LOBITO Report ID: [id number] Reading Location: [id number] Procedure Note Jozef Hutchinson MD - 02/11/2019 EXAM DESCRIPTION: CT CHEST W/O CONTRAST REASON FOR STUDY: Follow up multiple bilateral pulmonary nodules. TECHNIQUE: CT scan of the chest performed without intravenous contrast using helical scanning technique. Reconstructed coronal and sagittal MPR images reviewed. All images stored on PACS. Automated exposure control was used as a dose optimization technique for this examination. COMPARISON: Chest CT 02/11/2018 and 11/04/2017 FINDINGS: The sensitivity for detection of solid visceral lesions is diminished without the use of intravenous contrast. LUNGS: There are unchanged bilateral pulmonary nodules/nodular opacities dating back to 11/04/2017 for example within the left upper lobe on axial image 24 measuring 7 mm in AP dimension, within the right upper lobe measuring 0.8 cm on axial image 61, within the right upper lobe perifissural region measuring 0.7 cm on image 69, within the right lower lobe measuring 0.8 cm on axial image 71, within the left lower lobe posteriorly measuring 0.6 cm and anteriorly measuring 4 mm on axial image 89. There are scattered centrilobular nodules for example within the right upper lobe laterally on axial image 42 and on axial image 52 as can be seen with atypical infection. There is a calcified granuloma within the right middle lobe. Ill-defined nodularity/tree-in-bud nodularity within the left lateral lower lobe on axial image 67 is new when compared to the prior study. There is a new 0.8 cm solid noncalcified nodule within the left upper lobe on axial image 34. There is mild bibasilar atelectasis. PLEURA: No effusion. No pneumothorax. MEDIASTINUM/TRACEY: There are stable prominent but nonenlarged mediastinal lymph nodes. There are calcified aortopulmonary window lymph nodes consistent with old granulomatous disease. HEART: Heart size is normal with no pericardial effusion. VASCULATURE: There is stable aneurysmal dilatation of the ascending thoracic aorta measuring up to 43 mm. AXILLA: No adenopathy. CHEST WALL: No masses. No subcutaneous air. HARDWARE/LINES/TUBES: None. UPPER ABDOMEN: Calcified splenic granulomas. There is a small sliding hiatal hernia. MUSCULOSKELETAL: There is diffuse osteopenia. There is multilevel thoracic spondylosis. OTHER: There enlargement of the thyroid gland with multiple thyroid nodules as can be seen with multinodular thyroid goiter. Findings are similar when compared to the prior study. THIS IS AN ELECTRONICALLY VERIFIED FINAL REPORT 02/11/2019 10:39 AM - Electronically signed by Jozef Hutchinson M.D. LOBITO: LOBITO Report ID: [id number] Reading Location: [id number] IMPRESSION: 1. Multiple stable solid pulmonary nodules/nodular opacities measuring up to 0.8 cm. Multiple areas of scattered centrilobular nodules/tree-in-bud nodularity are again noted as can be seen with atypical infection/mycobacterial infection. New ill-defined nodularity or tree-in-bud nodularity within the left lateral lower lobe. New 0.8 cm solid noncalcified nodule within the left upper lobe. Follow-up chest CT in 3-6 months is recommended. 2. Stable aneurysmal dilatation of the ascending thoracic aorta measuring up to 43 mm. 3. Sequela of old granulomatous disease. 4. Multinodular thyroid goiter. Kenny Mckinnon MD IMG CT ORDERABLES Final Result * COLONOSCOPY (11/26/2017) us Vignesh Rasmussen DO PROCEDURE/MINOR SURGICAL ORDERA BLES Final Result from Last 3 Months or Most Recently Relevant to Health Maintenance Insurance MEDICARE C [employer] Care Teams Supervisor Sign Shop Relationship Specialty Start Date End Date Shayy Olivares MD [address] [facility] [address] [place] [address] PCP - General Family Medicine 11/12/16 Donna Cazares APRN, BRAZER ASSEMBLER [address] [place] [address] Nurse Practitioner Advanced Practice Nurse 05/26/23
--- NOTE | 2025-02-19 18:22 | ECG_ITS ---
Test Date: 2025-02-19 18:41:35 Measurements Intervals [place] Rate: 112 P: 0 [place]: 0 QRS: -31 QRSD: 90 T: 57 QT: 324 QTc: 444 Interpretive Statements ATRIAL FIBRILLATION WITH RAPID VENTRICULAR RESPONSE LEFT AXIS DEVIATION [QRS AXIS < -30] MODERATE VOLTAGE CRITERIA FOR LVH, CONSIDER NORMAL VARIANT [MEETS CRITERIA IN ONE OF: R(aVL), S(V1), R(V5), R(V5/V6)+S(V1)] POSSIBLE ANTERIOR MYOCARDIAL INFARCTION , OF INDETERMINATE AGE [30 ms Q WAVE IN V3/V4, OR R < 0.2 mV IN V4] ABNORMAL ECG No previous ECG available for comparison Electronically Signed On 02-20-2025 09:39:23 CDT by Jasper Keita M.D.
[2025-02-19 18:45] LABS: Hematocrit 39.7 % (37.0-47.0); Hemoglobin 13.3 g/dL (12.0-15.0); Immature Granulocyte Percent A 0.3 % (0-0.5); Lymphocytes Absolute Auto 1.05 K/mm3 (0.9-3.2); Mean Corpuscular HGB Conc 33.5 g/dl (32-36); Mean Corpuscular Hemoglobin 30.9 pg (26-34); Mean Corpuscular Volume 92.3 fl (80-100); Nucleated Red Blood Cells Absolute Auto 0.000 K/mm3 (0.0-0.012); Nucleated Red Blood Cells Perc 0.0 % (0.0-0.2); Platelet Count Result 160 k/mm3 (150-375); Red Blood Count 4.30 M/mm3 (4.2-5.4); White Blood Count 9.6 K/mm3 (4.5-10.0)
[2025-02-19 18:55] LABS: Alanine Aminotransferase 14 U/L (6-35); Albumin Level 3.7 g/dL (3.5-5.1); Alkaline Phosphatase 87 U/L (38-126); Anion Gap 9 mmol/L (4-12); Aspartate Amino Transferase 28 U/L (14-36); Bilirubin,Total 0.3 mg/dL (0.2-1.3); Blood Urea Nitrogen 25 mg/dL (7-17); Calcium 9.4 mg/dL (8.4-10.2); Carbon Dioxide 21 mmol/L (22-30); Chloride 106 mmol/L (98-107); Estimated Glomerular Filt Rate > 60; Glucose 153 mg/dL (65-110); Potassium 4.1 mmol/L (3.4-5.0); Sodium 136 mmol/L (137-145); Total Protein 6.5 g/dL (6.3-8.2)
[2025-02-19 19:00] LABS: INR 1.2; Partial Thromboplastin Time 25.7 Seconds (22.3-36.8); Prothrombin Time 14.9 Seconds (11.1-14.7)
[2025-02-19 19:13] LABS: NT Pro B Type Natriuretic Pept 1040 pg/mL (19.9-100); Troponin I 0.832 ng/mL (0.000-0.034)
--- OUTSIDE RECORDS SUMMARY | 2025-02-19 19:19 | XMS_ITS | Encounter Summary ---
Author Organization [facility] Address [address] 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
--- OUTSIDE RECORDS SUMMARY | 2025-02-19 19:19 | XMS_ITS | Encounter Summary ---
Author Organization [facility] Address [address] 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
--- OUTSIDE RECORDS SUMMARY | 2025-02-19 19:19 | XMS_ITS | Encounter Summary ---
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
--- OUTSIDE RECORDS SUMMARY | 2025-02-19 19:19 | XMS_ITS | Encounter Summary ---
Author Organization [facility] Address [address] 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
--- OUTSIDE RECORDS SUMMARY | 2025-02-19 19:19 | XMS_ITS | Clinical Summary ---
Author Organization [facility] [place] [address] Address [address] [place] [address] Care Team Providers Care Coal Conveyor Operator Name Role Phone Vickie Marti NP Primary Care Provider [phone] Allergies Active Allergy Reactions Criticality Noted Date [...] Additional Information Patient not taking.Reported on 02/08/2025 [employer] NETWORK ANALYST Thyroid 30 mg tablet Take 1 tablet [...] aneurysm 02/19/2025 Coronary artery disease invo lving shoalwater coronary artery of shoalwater heart without angina pectoris 02/08/2025 Jimenez's esophagus [...] Description 02/19/2025 5:15 PM CDT Office Visit [facility] Care at [address] [phone] Jose Luis Almaguer NP Shortness of breath (Primary Dx) 02/16/2025 ACO Medication Access [facility] Care Organization [address] [place] [id number] Adrienne Duncan CPhT 02/15/2025 Telephone [facility] Cardiology [address] [place] [address] [place] [phone] Romelia Loredo MD 02/14/2025 Results Follow-Up [facility] Cardiology [address] [facility] [address] [place] [phone] Romelia Loredo MD Transthoracic Echo (TTE) Complete W Doppler/CF 02/10/2025 11:15 AM CDT Ancillary Procedure [facility] Cardiology at [address] [place] [phone] Nonrheumatic aortic valve stenosis; 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 02/08/2025 11:15 AM CDT Office Visit [facility] Cardiology at [address] [place] [phone] Romelia Loredo MD Nonrheumatic aortic valve stenosis (Primary Dx); Aneurysm of ascending aorta without rupture; Essential hypertension; 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 01/04/2025 Telephone [facility] Cardiology [address] [place] [address] [place] [phone] Romelia Loredo MD 01/04/2025 Telephone [facility] Cardiology [address] [place] [address] [address] [place] [phone] Romelia Loredo MD from Last 3 [...] on file 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 Gender Identity Not on file Sexual Orientation [...] aortic valve stenosis 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 from Last 3 Months Results * TRANSTHORACIC ECHO (TTE) COMPLETE W DOPPLER/CF WO CONTRAST (02/10/2025 11:45 AM CDT) Estimated EF 60 % CONS SCIMAGE EF Mod BP 62 % CONS SCIMAGE Anatomical Region Laterality Modality Ultrasound 02/10/2025 11:0 7 AM CDT Narrative 02/10/2025 12:45 PM CDT [facility] Cardiology [address], [address], [place] [address] P:[phone] P:[phone] Echocardiographic Report Patient Name: ASYA RANGEL A : 1950 Study Date: 02/10/2025 11:07:34 AM Sex: F Thread Separator: NATHEN Location: [facility] Ref Provider: ROMELIA LOREDO Height(Cm): 163 BSA: 1.91 Weight(Kg): 80.7 Heart Rate: 72 BP: 110 / 74 Quality: Good Order Provider: ROMELIA LOREDO PROCEDURES: Echocardiographic Report: Transthoracic echocardiogram with complete 2D, M-Mode, and color Doppler examination. With Strain Analysis. 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 MEASUREMENTS: 2D/MM [...] Site: Exam was interpreted at [facility]. Left Ventricle: Normal left ventricular systolic function. [...] Procedure Note Romelia Loredo MD - 02/10/2025 [facility] Cardiology [address] [facility], [address], [place] [address] P:[phone] P:[phone] Echocardiographic Report Patient Name: ASYA RANGEL A : 1950 Study Date: 02/10/2025 11:07:34 AM Sex: F Thread Separator: Location: [facility] Ref Provider: ROMELIA LOREDO Height(Cm): 163 BSA: 1.91 Weight(Kg): 80.7 Heart Rate: 72 BP: 110 / 74 Quality: Good Order Provider: ROMELIA LOREDO PROCEDURES: Echocardiographic Report: Transthoracic echocardiogram with complete 2D, M-Mode, and color Dopplerexamination. With Strain Analysis. INDICATIONS: I35.0 Nonrheumatic aortic (valve) stenosis and I25.10 Atheroscleroticheart disease of shoalwater coronary artery without angina pectoris. MEASUREMENTS: 2D/MM [...] Site: Exam was interpreted at [facility]. Left Ventricle: Normal left ventricular systolic function. [...] from Last 3 Months Insurance [employer] [facility] Address: [facility] [id number] [place] [id number] [employer] [facility] Address: [address] [place] [address] [employer] MED[employer]ARE Advance Directives For more information, please contact: [phone] * Full Code (Latest Code Status on File) Date Activated Date Inactivated Comments 07/05/2024 11:20 AM 07/05/2024 5:44 PM * Full Code Date Activated Date Inactivated Comments 07/05/2024 11:20 AM 07/05/2024 11:20 AM Care Teams Coal Conveyor Operator Relationship Specialty Start Date End Date Vickie Marti NP [address] [place] [address] PCP - General Nurse Practitioner 02/08/25
--- OUTSIDE RECORDS SUMMARY | 2025-02-19 19:19 | XMS_ITS | Encounter Summary ---
Author Organization [facility] Address [address] 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 EL CRM DEVELOPER documented in this encounter Plan of Treatment Not on file documented as of this encounter Visit Diagnoses Not on filedocumented in this encounter Care Teams Rubber Goods Finisher Relationship Specialty Start Date End Date Shayy Olivares MD [address] [facility] [address] [place] [address] PCP - General Family Medicine 11/12/16 Donna Cazares APRN, FINE CRAFT ARTIST [address] [place] [address] Nurse Practitioner Advanced Practice Nurse 05/26/23 documented as of this encounter
--- OUTSIDE RECORDS SUMMARY | 2025-02-19 19:19 | XMS_ITS | Clinical Summary ---
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 Not on file Not on file Last Filed Vital Signs Vital Sign Reading Time Taken Comments Blood Pressure 132/78 05/26/2023 11:01 AM VEGETABLE PREPARER Pulse 76 05/26/2023 11:01 AM VEGETABLE PREPARER Temperature 36.7 C (98 F) 05/26/2023 11:01 AM VEGETABLE PREPARER Respiratory Rate 14 05/26/2023 11:01 AM VEGETABLE PREPARER Oxygen Saturation 98% 05/26/2023 11:01 AM VEGETABLE PREPARER Inhaled Oxygen Concentration - - Weight 86.7 kg (191 lb 1.6 oz) 05/26/2023 11:01 AM VEGETABLE PREPARER Height 162.6 cm (5' 4) 05/26/2023 11:01 AM VEGETABLE PREPARER Body Mass Index 32.8 05/26/2023 11:01 AM VEGETABLE PREPARER Plan of Treatment Health Maintenance Due Date [...] Jozef Hutchinson M.D. LOBITO: LOBITO Report ID: [id number] Reading Location: [id number] Procedure Note Jozef Hutchinson MD - 02/11/2019 [...] Jozef Hutchinson M.D. LOBITO: LOBITO Report ID: [id number] Reading Location: [id number] IMPRESSION: 1. Multiple stable solid pulmonary nodules/nodular [...] Maintenance Insurance MEDICARE C [employer] Care Teams Back Tender Insulation Board Relationship Specialty Start Date End Date Shayy Olivares MD [address] [facility] [address] [place] [address] PCP - General Family Medicine 11/12/16 Donna Cazares APRN, PRECISION MACHINING INSTRUCTOR [address] [place] [address] Nurse Practitioner Advanced Practice Nurse 05/26/23
--- OUTSIDE RECORDS SUMMARY | 2025-02-19 19:19 | XMS_ITS | Encounter Summary ---
Author Organization [facility] Healthcare Address [address] [place] [address] Care Team Providers Care Charhouse Worker Name Role Phone Vickie Marti NP Primary Care Provider [phone] Encounter Details Date Type Department Care Team (Late st Contact Info) Description 02/15/2025 Telephone [facility] Cardiology [address] [place] [address] Jasper Keita MD [address] [facility] [address] [place] [address] [facility] [address] [place] [address] [place] [address] Social History Tobacco Use Types [...] on file Legal Sex Female 4:03 AM SOFTWARE RELIABILITY ENGINEER Gender Identity Not on file Sexual Orientation Not on file documented as of this encounter Miscellaneous Notes * Telephone Encounter - Kezia Shaffer MA - 02/15/2025 1:41 PM CDT Faxed via doubleTwist * Telephone Encounter - Alejandra Kearns - 02/15/2025 1:11 PM CDT [facility] requesting CT scan from 02/08/25 because pt is about to begin pulmonary rehab. Thank you. Contact: documented in this encounter Plan of Treatment Not on file documented as of this encounter Visit Diagnoses Not on filedocumented in this encounter Care Teams Charhouse Worker Relationship Specialty Start Date End Date Vickie Marti NP [address] [place] [address] PCP - General Nurse Practitioner 02/08/25 documented as of this encounter
--- OUTSIDE RECORDS SUMMARY | 2025-02-19 19:19 | XMS_ITS | Encounter Summary ---
Author Organization [facility] Address [address] 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
--- OUTSIDE RECORDS SUMMARY | 2025-02-19 19:19 | XMS_ITS | Encounter Summary ---
Author Organization [facility] Address [address] 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 Showing future appointments within next 90 days and meeting all other requirements documented in this encounter Plan of Treatment Not on file documented as of this encounter Visit Diagnoses Not on filedocumented in this encounter Care Teams Cane Weigher Helper Relationship Specialty Start Date End Date Shayy Olivares MD [address] [email or web address] [address] [place] [address] PCP - General Family Medicine 11/12/16 Donna Cazares APRN, CENTRAL SERVICES TECH [address] [place] [address] Nurse Practitioner Advanced Practice Nurse 05/26/23 documented as of this encounter
--- OUTSIDE RECORDS SUMMARY | 2025-02-19 19:19 | XMS_ITS | Encounter Summary ---
Author Organization [facility] Address [address] 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
--- OUTSIDE RECORDS SUMMARY | 2025-02-19 19:19 | XMS_ITS | Encounter Summary ---
Author Organization [facility] Address [address] 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 documented in this encounter Plan of Treatment Not on file documented as of this encounter Visit Diagnoses Not on filedocumented in this encounter Care Teams Sports Coordinator Relationship Specialty Start Date End Date Shayy Olivares MD [address] [facility] [address] [place] [address] PCP - General Family Medicine 11/12/16 Donna Cazares APRN, RICE FARMER [address] [place] [address] Nurse Practitioner Advanced Practice Nurse 05/26/23 documented as of this encounter
--- NOTE | 2025-02-19 19:39 | PC.NURSE ---
radha in lab will add on mag
[2025-02-19 19:48] LABS: Magnesium 2.0 mg/dL (1.6-2.3)
[2025-02-19 20:08] LABS: Hematocrit 40.3 % (37.0-47.0); Hemoglobin 13.5 g/dL (12.0-15.0); Immature Granulocyte Percent A 0.2 % (0-0.5); Lymphocytes Absolute Auto 1.23 K/mm3 (0.9-3.2); Mean Corpuscular HGB Conc 33.5 g/dl (32-36); Mean Corpuscular Hemoglobin 30.6 pg (26-34); Mean Corpuscular Volume 91.4 fl (80-100); Nucleated Red Blood Cells Absolute Auto 0.000 K/mm3 (0.0-0.012); Nucleated Red Blood Cells Perc 0.0 % (0.0-0.2); Platelet Count Result 149 k/mm3 (150-375); Red Blood Count 4.41 M/mm3 (4.2-5.4); White Blood Count 8.7 K/mm3 (4.5-10.0)
[2025-02-19] MEDS: HEPARIN SOD/D5W 100 UNITS/ML 25,000 UNITS/250 ML BAG 8 UNITS IV CONT (20:09)
[2025-02-19 20:19] LABS: INR 1.1; Prothrombin Time 14.8 Seconds (11.1-14.7)
[2025-02-19 20:20] LABS: Partial Thromboplastin Time 26.8 Seconds (22.3-36.8)
--- NOTE | 2025-02-19 20:21 | ED.GENADULT ---
HPI - General Adult General Chief complaint: Shortness of Breath/Dyspnea Stated complaint: breathing issues Time Seen by Provider: 02/19/25 19:12 History of Present Illness HPI narrative: Patient is a 74-year-old female who presents emergency department this evening complaining of shortness of breath. Patient states that she was walking along a trail and became very short of breath. Tried to use her inhaler for her COPD which did not help. Patient states that she could feel that she was wheezing. She was diagnosed with COPD in 2019. Denies any active chest pain. Denies any recent illness, fevers or chills. Related Data Home Medications ?Medication ?Instructions ?Recorded ?Confirmed ?Last Taken ?Type omeprazole 20 mg capsule,delayed 20 mg PO DAILY 10/22/19 05/17/24 09/03/23 History release evolocumab 420 mg/3.5 mL 420 mg subcut MONTHLY 12/31/21 05/17/24 09/02/23 History subcutaneous wearable injector (Repatha Pushtronex) multivitamin 1 tablet PO DAILY 01/08/23 05/17/24 09/03/23 History Allergies Allergy/AdvReac Type Severity Reaction Status Date / Time Penicillins Allergy Intermediate hives Verified 05/17/24 13:41 erythromycin base AdvReac Unknown Vomiting Verified 05/17/24 13:41 Review of Systems Review of Systems: All systems are reviewed and are negative unless stated otherwise in the HPI. 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 Arthritis Breasts asymmetrical Anxiety and depression Heart murmur Rheumatic fever x2 Pulmonary nodules Barretts esophagus COPD (chronic obstructive pulmonary disease) Ischemic colitis Benign essential HTN Hyperthyroidism MARILYN (generalized anxiety disorder) MDD (major depressive disorder), recurrent episode, moderate Esophageal stricture Jimenez's esophageal ulceration Surgical History Surgical History History of hernia repair (~12/2016) History of repair of hiatal hernia (~2007) History of ankle surgery (~2004) compound fracture rt ankle--2 surgeries Status post balloon dilatation of esophageal stricture Family History Family History Father Family history of premature coronary heart disease Hypertension Acute myocardial infarction Heart disease Mother Family history of malignant neoplasm of breast in first degree relative Patient's mother is Diabetes mellitus Neoplasm of ovary Breast cancer Depression Other Carcinoma of colon maternal aunt Social History Social History Social History: Single Smoking packs per day: 0.5 Smoking cigarettes per day: 10.0 Years smoked: 20 Smoking pack-years: 10.00 Smoking status: Current some day smoker Tobacco type: cigarettes Second hand tobacco smoke exposure: No Alcohol intake: current Drinks per week: 1 Alcohol use details: beer 1-2 per month Substance use: never Substance use type: does not use Lack of Transportation: No Lack of Food: Never True Current Housing: I Have Housing Concerned About Future Housing: No Difficulty Paying Gas/Electric Bills: No Difficulty Paying for Meds: No Currently Unemployed: YES Education: Master's Degree or Higher Difficulty w/ Childcare or Family Care: No Living arrangements: alone Occupation/Education: retired Gender identity (if verbalized by the patient): Female Sexual Orientation (if Verbalized by the Patient): Straight or Heterosexual Spiritual care concerns: No Agree to blood products: Yes Exam Narrative: General: Alert, awake, afebrile, in no acute distress. HEENT: PERRL, no rhinorrhea, no post nasal drip, oropharynx clear. Neck: Trachea midline, no JVD, no lymphadenopathy. Cardiovascular: Regular rate and rhythm, no murmurs, rubs or gallops, no peripheral edema. Respiratory: Mild expiratory wheezing bilaterally, no tachypnea, no respiratory distress. Abdomen: Soft, nontender, nondistended, no rebound, no guarding, no peritoneal signs. Musculoskeletal: No joint swelling or deformity, normal muscle tone. Skin: No rashes or petechia, no signs of infection. Psychiatric: Alert and oriented, normal behavior and judgment for situation. Neurological: Alert and oriented to person, place, and time. Follows all commands. No focal deficits, speech is clear and fluent. Course Vital Signs Vital signs: Vital Signs Temperature 98.7 F 02/19/25 19:32 Pulse Rate 94 02/19/25 19:32 Respiratory Rate 20 02/19/25 19:32 Blood Pressure 105/78 02/19/25 19:32 Pulse Oximetry 99 02/19/25 19:32 Oxygen Delivery Room Air 02/19/25 19:32 Temperature 98.7 F 02/19/25 19:32 Pulse Rate 99 02/19/25 19:34 Respiratory Rate 20 02/19/25 19:32 Blood Pressure 105/78 02/19/25 19:32 Pulse Oximetry 99 02/19/25 19:32 Oxygen Delivery Room Air 02/19/25 19:35 Medical Decision Making MDM Narrative Medical decision making narrative: The patient was evaluated by myself in the emergency department. History is obtained from patient who is an independent historian and physical exam was performed. External medical records were reviewed at this time. IV was established and pertinent tests were ordered. Patient was administered a DuoNeb breathing treatment and 125 mg of IV Solu-Medrol. EKG was obtained which revealed atrial fibrillation with RVR rate of 111 beats per minute, otherwise no evidence of acute ischemia. EKG was independently interpreted by me and is currently pending official cardiology read. Patient does not have a history of atrial fibrillation, denies any blood thinner use. Jones Vasc score is 4, patient was started on a heparin drip at this time for new onset AFib with RVR. Patient is currently rate controlled with a heart rate in the 80s. Laboratory results obtained revealing an elevated troponin of 0.832, proBNP 1040 otherwise unremarkable. Imaging studies obtained included CXR which was independently interpreted by me revealing no acute cardiopulmonary process, which is pending final radiology interpretation. Differential diagnosis considerations include acute coronary syndrome, COPD exacerbation, infectious process such as pneumonia, CHF. Comorbidities impacting this visit include history of COPD. I have evaluated and discussed social determinants of health with the patient that could potentially impact subsequent diagnosis and treatment plans. On repeat assessment of the patient, reevaluation revealed that the patient is doing well and is in no acute distress. Patient symptoms have improved since she arrived to our emergency department. Repeat vital signs were all reviewed and noted to be stable. Differential diagnosis and treatment plan were discussed with the patient at bedside. Patient agrees with discussion and after shared medical decision making agrees with admission. All questions were answered to the patient's satisfaction. Case was discussed with the on-call hospitalist Dr. Wills at 2015 and she accepted admission. Critical care time of 55 minutes, exclusive of separately performed procedures, necessary for treating or preventing eminent or life-threatening deterioration of patient's condition of NSTEMI requiring IV heparin therapy, focused on patient care provided personally by me and time spent during initial evaluation, physical examination, ordering and performing treatments and interventions, ordering and reviewing laboratory studies, ordering and reviewing radiographic studies, re-evaluation of the patient's condition, evaluation of the patient's response to treatment, and discussion of patient case with multiple consultants. Vital Signs Vital Signs: Vital Signs Temperature 98.7 F 02/19/25 19:32 Pulse Rate 94 02/19/25 19:32 Respiratory Rate 20 02/19/25 19:32 Blood Pressure 105/78 02/19/25 19:32 Pulse Oximetry 99 02/19/25 19:32 Oxygen Delivery Room Air 02/19/25 19:32 Temperature 98.7 F 02/19/25 19:32 Pulse Rate 99 02/19/25 19:34 Respiratory Rate 20 02/19/25 19:32 Blood Pressure 105/78 02/19/25 19:32 Pulse Oximetry 99 02/19/25 19:32 Oxygen Delivery Room Air 02/19/25 19:35 Lab Data 02/19/25 20:03 02/19/25 18:39 Labs: Lab Results 02/19/25 02/19/25 Range/Units 18:39 20:03 WBC 9.6 8.7 (4.5-10.0) K/mm3 RBC 4.30 4.41 (4.2-5.4) M/mm3 Hgb 13.3 13.5 (12.0-15.0) g/dL Hct 39.7 40.3 (37.0-47.0) % MCV 92.3 91.4 (80-100) fl MCH 30.9 30.6 (26-34) pg MCHC 33.5 33.5 (32-36) g/dl RDW 14.0 13.9 (11.5-14.5) % Plt Count 160 149 L (150-375) k/mm3 MPV 11.1 H 10.9 H (7.4-10.4) fl Immature Gran % (Auto) 0.3 0.2 (0-0.5) % Neut % (Auto) 82.5 H 77.6 H (45.5-73.1) % Lymph % (Auto) 10.9 L 14.1 L (18.3-44.2) % [place] % (Auto) 5.4 7.1 (2.6-8.5) % Eos % (Auto) 0.6 0.8 (0-4.4) % Baso % (Auto) 0.3 0.2 (0.2-1.2) % Lymph # (Auto) 1.05 1.23 (0.9-3.2) K/mm3 [place] # (Auto) 0.5 0.6 (0.1-0.6) K/mm3 Eos # (Auto) 0.1 0.1 (0-0.3) K/mm3 Baso # (Auto) 0.0 0.0 (0.0-0.1) K/mm3 Abs Immat Gran (auto) 0.03 0.02 (0.00-0.031) K/mm3 Absolute Neuts (auto) 8.0 H 6.8 H (1.3-6.7) K/mm3 Absolute Nucleated RBC 0.000 0.000 (0.0-0.012) K/mm3 Nucleated RBC % 0.0 0.0 (0.0-0.2) % PT 14.9 H 14.8 H (11.1-14.7) Seconds INR 1.2 1.1 APTT 25.7 26.8 (22.3-36.8) Seconds Sodium 136 L (137-145) mmol/L Potassium 4.1 (3.4-5.0) mmol/L Chloride 106 (98-107) mmol/L Carbon Dioxide 21 L (22-30) mmol/L Anion Gap 9 (4-12) mmol/L BUN 25 H (7-17) mg/dL Creatinine 0.86 (0.7-1.0) mg/dL Estim Creat Clear Calc Not Reportable Estimated GFR > 60 (59 - ) Glucose 153 H (65-110) mg/dL Calcium 9.4 (8.4-10.2) mg/dL Magnesium 2.0 (1.6-2.3) mg/dL Total Bilirubin 0.3 (0.2-1.3) mg/dL AST 28 (14-36) U/L ALT 14 (6-35) U/L Alkaline Phosphatase 87 (38-126) U/L Troponin I 0.832 H* (0.000-0.034) ng/mL NT-Pro-B Natriuret Pep 1040 H (19.9-100) pg/mL Total Protein 6.5 (6.3-8.2) g/dL Albumin 3.7 (3.5-5.1) g/dL Critical Care Time Critical Care Time Critical Care Time: Yes Total Critical Care Time: 55 (Please refer to [facility] for attestation.) Discharge Plan Discharge Clinical Impression: Non-ST elevation LA (NSTEMI), Atrial fibrillation with rapid ventricular response, Shortness of breath, COPD (chronic obstructive pulmonary disease) Patient Disposition: Still a Patient Condition: Improved Patient Language: Georgian Prescriptions: No Action omeprazole 20 mg capsule,delayed release(DR/EC) 20 mg PO DAILY multivitamin Tablet 1 tablet PO DAILY Repatha Pushtronex 420 mg/3.5 mL wearable injector 420 mg subcut MONTHLY albuterol sulfate [ProAir HFA] 90 mcg/actuation HFA aerosol inhaler 1 inh INHALATION Q4H PRN (Reason: shortness of breath or wheezing) Qty: 8.5 6RF tizanidine 2 mg tablet 2 mg PO TID PRN (Reason: muscle spasticity) Qty: 60 0RF venlafaxine 37.5 mg tablet 37.5 mg PO DAILY Qty: 90 1RF fluticasone propionate 50 mcg/actuation spray,suspension See Rx Instructions .ROUTE .COMPLEX Qty: 16 1RF Dose Instruction: SHAKE LIQUID AND USE 1 SPRAY IN EACH NOSTRIL DAILY Rx Instructions: SHAKE LIQUID AND USE 1 SPRAY IN EACH NOSTRIL DAILY diltiazem HCl 180 mg capsule,extended release 24hr See Rx Instructions .ROUTE .COMPLEX Qty: 90 1RF Dose Instruction: TAKE 1 CAPSULE BY MOUTH DAILY Rx Instructions: TAKE 1 CAPSULE BY MOUTH DAILY methimazole 5 mg tablet 2.5 mg PO DAILY Qty: 20 0RF Trelegy Ellipta 100-62.5-25 mcg blister with device See Rx Instructions .ROUTE .COMPLEX Qty: 60 5RF Dose Instruction: INHALE 1 PUFF BY MOUTH DAILY FOR COPD Rx Instructions: INHALE 1 PUFF BY MOUTH DAILY FOR COPD Follow-up/Referrals: Shayy Olivares MD [Primary Care Provider, [facility]] Time of Disposition: 20:25
--- NOTE | 2025-02-19 20:32 | PC.NURSE ---
ed rt notified about duoneb order
[2025-02-19] MEDS: IPRATROPIUM 0.5 MG/ALBUTEROL SULFATE 2.5 MG AMPUL.NEB 3 ML INHALATION (20:40)
--- NOTE | 2025-02-19 21:26 | ADMGEN ---
This patient, Asya Ramirez, was admitted to IMU Room 201-01. Patient/family oriented to hospital policies and general routines including ID bracelet, bed and alarms, visiting hours, pain management, procedures, bathroom and other care routines, personal items, smoking policy, room service/diet, and visiting hours. Information on how to activate the Rapid Response Team has been discussed. Patient/Family are encouraged to report perceived risks to care and to ask questions if they do not understand what they are told or what they should do.
--- NOTE | 2025-02-19 21:28 | ECG_ITS ---
Test Date: 2025-02-19 21:38:49 Measurements Intervals [place] Rate: 120 P: 0 IA: 0 QRS: -28 QRSD: 84 T: 64 QT: 325 QTc: 460 Interpretive Statements ATRIAL FIBRILLATION WITH RAPID VENTRICULAR RESPONSE MODERATE VOLTAGE CRITERIA FOR LVH, CONSIDER NORMAL VARIANT [MEETS CRITERIA IN ONE OF: R(aVL), S(V1), R(V5), R(V5/V6)+S(V1)] POSSIBLE ANTERIOR MYOCARDIAL INFARCTION [30 ms Q WAVE IN V3/V4, OR R < 0.2 mV IN V4], OF INDETERMINATE AGE ABNORMAL ECG Compared to ECG 02/19/2025 18:41:35 Left-axis deviation no longer present Myocardial infarct finding still present Electronically Signed On 02-20-2025 09:41:25 CDT by Jasper Keita M.D.
[2025-02-19 22:04] LABS: Troponin I 0.645 ng/mL (0.000-0.034)
[2025-02-19 23:52] LABS: Thyroid Stimulating Hormone < 0.015 uIU/mL (0.465-4.680)
[2025-02-20] VITALS (19 sets, daily range): BP systolic 117–146; BP diastolic 73–92; PULSE 70–139; RESP 17–22; TEMP 36.5–36.8; O2SAT 94–99
--- NOTE | 2025-02-20 00:18 | ECG_ITS ---
Test Date: 2025-02-20 07:18:33 Measurements Intervals [place] Rate: 83 P: 222 CT: 108 QRS: -38 QRSD: 92 T: 15 QT: 415 QTc: 489 Interpretive Statements SINUS RHYTHM LEFT AXIS DEVIATION [QRS AXIS < -30] MODERATE VOLTAGE CRITERIA FOR LVH, CONSIDER NORMAL VARIANT [MEETS CRITERIA IN ONE OF: R(aVL), S(V1), R(V5), R(V5/V6)+S(V1)] POSSIBLE ANTERIOR MYOCARDIAL INFARCTION , OF INDETERMINATE AGE [30 ms Q WAVE IN V3/V4, OR R < 0.2 mV IN V4] ABNORMAL ECG Electronically Signed On 02-20-2025 09:49:22 CDT by Jasper Keita M.D.
--- NOTE | 2025-02-20 00:23 | ECG_ITS ---
Test Date: 2025-02-20 00:23:16 Measurements Intervals [place] Rate: 89 P: 141 [place]: 203 QRS: 219 QRSD: 93 T: 151 QT: 387 QTc: 471 Interpretive Statements SINUS RHYTHM ARM LEADS REVERSED [INVERTED P AND QRS IN I] T-WAVE ABNORMALITY, CONSIDER ANTERIOR ISCHEMIA ABNORMAL ECG Electronically Signed On 02-21-2025 11:15:37 CDT by Jasper Keita M.D.
[2025-02-20 01:04] LABS: Troponin I 0.371 ng/mL (0.000-0.034)
--- NOTE | 2025-02-20 02:09 | PM.IMHP ---
H&P: HPI History of Present Illness Date/Time: 02/20/25 02:09 Chief Complaint: Shortness of breath Narrative: Severely anxious but pleasant 74-year-old female with a past medical history of subclinical hyperthyroidism, COPD, Jimenez's esophagus anxiety and depression who presented to the ER from home via private vehicle due to shortness of breath. The patient reports that she was doing her usual 2 mi walk when she became acutely more short of breath. The shortness breath was so severe that she began to panic. She reports that when she began to panic she was having some chest discomfort. She did notice that her heart was racing. She has noticed that her heart rate has been intermittently elevated on and off for months. She states that she was concerned about side effects of her chronic medications including her PPI and cardiac medications so she went to a [facility] wellness facility. At that time they put her on a bunch of supplements including thyroid supplements. They also cut back her cardiac medications and decreased her Cardizem dose from 180 mg down to 60 mg several months ago. It was around the time that the medication adjustment was made she still EB and having issues with dyspnea on exertion and palpitations. She has also had some unintentional weight loss. She reported that she was in so much distress before coming to the ER that she was acutely diaphoretic. She denies any recent cough, congestion, fevers or chills. She did follow-up with Dr. Keita as outpatient ?not that long ago? and that she suspects that Dr. Keita is not happy with her decreasing her cardiac medications. She complains that she sometimes feels increased shortness of breath due to nasal congestion and sinus pressure. She body nebulizer machine to nebulize a silver solution that the customer marketing assistant recommended. She does not use nebulizers. She is using a Trelegy inhaler. She states that she is supposed to see a repacker at [facility] on the . Review of Systems Review of Systems: 12 systems were reviewed with pertinent positives and negatives per HPI. Except as documented in the HPI, all other systems were reviewed and are negative. 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 Arthritis Breasts asymmetrical Anxiety and depression Heart murmur Rheumatic fever x2 Pulmonary nodules Barretts esophagus COPD (chronic obstructive pulmonary disease) Ischemic colitis Hyperthyroidism MARILYN (generalized anxiety disorder) MDD (major depressive disorder), recurrent episode, moderate Esophageal stricture Jimenez's esophageal ulceration Surgical History Surgical History History of hernia repair (~12/2016) History of repair of hiatal hernia (~2007) History of ankle surgery (~2004) compound fracture rt ankle--2 surgeries Status post balloon dilatation of esophageal stricture Family History Family History Father Family history of premature coronary heart disease Hypertension Acute myocardial infarction Heart disease Mother Family history of malignant neoplasm of breast in first degree relative Patient's mother is Diabetes mellitus Neoplasm of ovary Breast cancer Depression Other Carcinoma of colon maternal aunt Social History Social History (Updated 02/20/25 @ 07:43 by Marita Wills DO) Social History: She reports that she is single and has never been . She worked for [employer] before retiring. 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 She does not have any children. She does have a medium-sized dog at home and she states that she walks her dog 2 miles every day. She also has a horse that she takes care of. She smoked 0.5-1 pack of cigarettes per day until 2006. She denies any history of alcohol use or illicit substance use. Code status: DNR/DNI (per patient request) Surrogate decision maker: Silvia Cooper (sister) Smoking packs per day: 0.5 Smoking cigarettes per day: 10.0 Years smoked: 25 Smoking pack-years: 12.50 Smoking status: Former smoker Tobacco type: cigarettes Second hand tobacco smoke exposure: No Alcohol intake: current Drinks per week: 1 Alcohol use details: beer 1-2 per month Substance use: never Substance use type: does not use Lack of Transportation: No Lack of Food: Never True Current Housing: I Have Housing Concerned About Future Housing: No Difficulty Paying Gas/Electric Bills: No Difficulty Paying for Meds: No Currently Unemployed: No Education: Master's Degree or Higher Difficulty w/ Childcare or Family Care: No Living arrangements: alone Occupation/Education: retired Gender identity (if verbalized by the patient): Female Sexual Orientation (if Verbalized by the Patient): Straight or Heterosexual Spiritual care concerns: No Agree to blood products: Yes Meds Home Medications and Allergies Home Medications ?Medication ?Instructions ?Recorded ?Confirmed ?Type evolocumab 420 mg/3.5 mL 420 mg subcut MONTHLY 12/31/21 02/19/25 History subcutaneous wearable injector (Repatha Pushtronex) multivitamin 1 tablet PO DAILY 01/08/23 02/19/25 History fluticasone propionate 50 See Rx Instructions .Route 08/17/24 02/19/25 Rx mcg/actuation nasal .COMPLEX #16 grams spray,suspension fluticasone fur. 100 mcg-umeclid See Rx Instructions .Route 12/24/24 02/19/25 Rx 62.5 mcg-vilant 25 mcg .COMPLEX #60 ea inhalat.powder (Trelegy Ellipta) diltiazem HCl 180 mg capsule,24 60 mg PO Q24H 02/19/25 02/19/25 History hr,extended release thyroid (pork) 30 mg tablet (IRRIGATION WORKER 30 mg PO QAM 02/19/25 02/19/25 History Thyroid) Allergies Allergy/AdvReac Type Severity Reaction Status Date / Time Penicillins Allergy Intermediate hives Verified 05/17/24 13:41 erythromycin base AdvReac Unknown Vomiting Verified 05/17/24 13:41 Vital Signs Vital Signs - 24 hr 02/19/25 18:18 02/19/25 18:30 02/19/25 19:01 Temperature Pulse Rate 127 H 120 H 116 H Respiratory Rate 23 H 21 H 28 H Blood Pressure 109/82 108/80 113/77 Pulse Oximetry 97 97 97 Oxygen Delivery Fraction of Inspired Oxygen 02/19/25 19:15 02/19/25 19:30 02/19/25 19:32 Temperature 98.7 F Pulse Rate 114 H 89 94 Respiratory Rate 21 H 30 H 20 Blood Pressure 105/78 105/78 Pulse Oximetry 98 99 Oxygen Delivery Room Air Fraction of Inspired Oxygen 02/19/25 19:34 02/19/25 19:35 02/19/25 20:11 Temperature Pulse Rate 99 89 Respiratory Rate 24 H Blood Pressure 128/94 H Pulse Oximetry 97 Oxygen Delivery Room Air Fraction of Inspired Oxygen 02/19/25 20:15 02/19/25 20:28 02/19/25 20:43 Temperature Pulse Rate 89 90 89 Respiratory Rate 29 H 18 16 Blood Pressure 92/55 L 119/93 H Pulse Oximetry 97 98 Oxygen Delivery Fraction of Inspired Oxygen 02/19/25 20:44 02/19/25 20:51 02/19/25 21:01 Temperature 97.8 F Pulse Rate 89 89 98 Respiratory Rate 16 16 22 H Blood Pressure 118/83 Pulse Oximetry 100 98 Oxygen Delivery Room Air Fraction of Inspired Oxygen 21 02/19/25 21:13 02/19/25 22:00 02/19/25 22:15 Temperature 97.5 F L Pulse Rate 124 H 113 H 113 H Respiratory Rate 7 L 18 Blood Pressure 134/84 Pulse Oximetry 92 92 Oxygen Delivery Room Air Fraction of Inspired Oxygen 21 02/19/25 23:32 02/20/25 00:00 Temperature 97.8 F Pulse Rate 109 H 139 H Respiratory Rate 17 Blood Pressure 126/89 Pulse Oximetry 96 Oxygen Delivery Fraction of Inspired Oxygen Exam Narrative: Weight 85.6 kg BMI 32.4 Const: Other: No acute distress, lying flat in bed, well-developed well-nourished HENMT: Other: Mucous membranes are moist, no oral pharyngeal erythema, head is normocephalic atraumatic Eyes: Other: Pupils are equal and reactive, no scleral icterus, no conjunctival pallor, eyeglasses in place Neck: Other: No JVD, no lymphadenopathy Resp: Other: Clear to auscultation bilaterally, no increased work of breathing Cardio: Other: Regular rate, regular rhythm, 2+ bilateral radial pedal pulses GI: Other: Soft, nontender, nondistended, positive bowel sounds Skin: Other: No pallor, non jaundice Neuro: Other: Alert oriented x4, speech is clear, no facial asymmetry, no localizing neurologic deficits noted during the course of conversation Extrem: Other: No clubbing, cyanosis or edema, moves all extremities equally Psych: Other: Extremely anxious, pleasant and cooperative, fair judgment and insight H&P: Results Labs Labs: Laboratory Tests 02/19/25 20:03 02/19/25 18:39 02/19/25 02/19/25 02/19/25 18:39 20:03 21:31 WBC 9.6 8.7 RBC 4.30 4.41 Hgb 13.3 13.5 Hct 39.7 40.3 MCV 92.3 91.4 MCH 30.9 30.6 MCHC 33.5 33.5 RDW 14.0 13.9 Plt Count 160 149 L MPV 11.1 H 10.9 H Immature Gran % (Auto) 0.3 0.2 Neut % (Auto) 82.5 H 77.6 H Lymph % (Auto) 10.9 L 14.1 L [place] % (Auto) 5.4 7.1 Eos % (Auto) 0.6 0.8 Baso % (Auto) 0.3 0.2 Lymph # (Auto) 1.05 1.23 [place] # (Auto) 0.5 0.6 Eos # (Auto) 0.1 0.1 Baso # (Auto) 0.0 0.0 Abs Immat Gran (auto) 0.03 0.02 Absolute Neuts (auto) 8.0 H 6.8 H Absolute Nucleated RBC 0.000 0.000 Nucleated RBC % 0.0 0.0 PT 14.9 H 14.8 H INR 1.2 1.1 APTT 25.7 26.8 Sodium 136 L Potassium 4.1 Chloride 106 Carbon Dioxide 21 L Anion Gap 9 BUN 25 H Creatinine 0.86 Estim Creat Clear Calc Not Reportable Estimated GFR > 60 Glucose 153 H Calcium 9.4 Magnesium 2.0 Total Bilirubin 0.3 AST 28 ALT 14 Alkaline Phosphatase 87 Troponin I 0.832 H* 0.645 H* D NT-Pro-B Natriuret Pep 1040 H Total Protein 6.5 Albumin 3.7 TSH < 0.015 L 02/20/25 00:27 WBC RBC Hgb Hct MCV MCH MCHC RDW Plt Count MPV Immature Gran % (Auto) Neut % (Auto) Lymph % (Auto) [place] % (Auto) Eos % (Auto) Baso % (Auto) Lymph # (Auto) [place] # (Auto) Eos # (Auto) Baso # (Auto) Abs Immat Gran (auto) Absolute Neuts (auto) Absolute Nucleated RBC Nucleated RBC % PT INR APTT Sodium Potassium Chloride Carbon Dioxide Anion Gap BUN Creatinine Estim Creat Clear Calc Estimated GFR Glucose Calcium Magnesium Total Bilirubin AST ALT Alkaline Phosphatase Troponin I 0.371 H* D NT-Pro-B Natriuret Pep Total Protein Albumin TSH Impressions Chest X-Ray 02/19/25 18:58 Impression: No acute cardiopulmonary abnormality. EKG: AFib RVR rate 120 voltage criteria for LVH possible anterior ND indeterminate age (mi finding unchanged from prior) QTC 460. Cardiology interpretation pending Assessment and Plan Assessment and plan (1) Atrial fibrillation with rapid ventricular response: Code(s): I48.91 - Unspecified atrial fibrillation Status: Acute (2) Subclinical hyperthyroidism: Code(s): E05.90 - Thyrotoxicosis, unspecified without thyrotoxic crisis or storm Status: Acute (3) Non-ST elevation ND (NSTEMI): Code(s): I21.4 - Non-ST elevation (NSTEMI) myocardial infarction Status: Acute (4) Coronary artery disease: Qualifiers: Associated angina: without angina Coronary Disease-Associated Artery/Lesion type: [place]into artery [place] vs. transplanted heart: minto heart Qualified Code(s): I25.10 - Atherosclerotic heart disease of minto coronary artery without angina pectoris Code(s): I25.10 - Atherosclerotic heart disease of minto coronary artery without angina pectoris Status: Acute Plan Patient presents with AFib. She was having intermittent episodes of AFib RVR. Shortly after arriving to the intermediate unit patient converted back into normal sinus rhythm. Patient denies a known history of AFib. She does follow with Dr. Keita. Patient's chads Vasc score is 2 and long-term anticoagulation is recommended. Patient was started on heparin drip due to elevated troponin troponin elevation is due to demand ischemia given the patient's known history of nonocclusive coronary disease noted on cardiac catheterization August 2023.. She very well may have had a type 2 infarct given her report of chest pain and diaphoresis associated with exertion prior to coming to the hospital. Troponin is are trending down since patient has has been started on heparin drip and since she has converted back to normal sinus rhythm. The patient is agreeable to resuming her prior dose of Cardizem 180 mg daily The patient reports he had recent echocardiogram as outpatient so will not repeat echo at this time. Will consult Cardiology for further recommendations and will defer initiation oral anticoagulation therapy to Cardiology Service. Would not be surprised if the patient has not had intermittent episodes of AFib in the past. I suspect that some of her AFib RVR and increased symptoms of shortness of breath is related to increased hyperthyroidism. The patient already had subclinical hyperthyroidism for several years and was started on additional thyroid supplementation by the [facility]. Will discontinue thyroid supplement. The patient used to be on a small dose of Tapazole back in September or October. She may need to restart this medication as well but will re-evaluate depending on clinical response to cessation of thyroid supplement. Patient does also have significant history of anxiety and is quite anxious at this time. Is unclear if anxiety may be exacerbated by her hyperthyroidism and or discontinuation of her venlafaxine in August of 2024. 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 Will also continue patient's home Flonase Patient has been admitted as observation status. MEDICAL DECISION MAKING NARRATIVE -Spoke with the ED provider in detail regarding patient's evaluation, workup and management -Patient seen and examined at bedside -Collaborated with patient's nurse at the bedside in detail and addressed all concerns -Labs, electrolytes, radiology, investigations and test results personally reviewed and interpreted unless otherwise specified -ED/Consult/Nursing/Ancilliary notes on the chart reviewed and appreciated -Spoke with patient at bedside and diagnosis and plan of care was discussed. All questions answered. Quality VTE Prophylaxis VTE prophylaxis: pharmacologic ordered (Heparin drip per protocol) Hospitalist MIPS Advance Care Plan I have confirmed that the patient's Advanced Care Plan is present, code status is documented, or surrogate decision maker is listed in patient medical record.: Yes Medication Reconciliation I have utilized all available resources to obtain, update and review the patients current medications (includes all prescriptions, OTC, herbals, cannabis, and nutritional supplements).: Yes
[2025-02-20 02:13] LABS: Hematocrit 41.4 % (37.0-47.0); Hemoglobin 13.5 g/dL (12.0-15.0); Mean Corpuscular HGB Conc 32.6 g/dl (32-36); Mean Corpuscular Hemoglobin 30.1 pg (26-34); Mean Corpuscular Volume 92.2 fl (80-100); Platelet Count Result 148 k/mm3 (150-375); Red Blood Count 4.49 M/mm3 (4.2-5.4); White Blood Count 8.2 K/mm3 (4.5-10.0)
[2025-02-20 02:33] LABS: Partial Thromboplastin Time 70.4 Seconds (22.3-36.8)
[2025-02-20 02:41] LABS: Anisocytosis 1+; Band Neutrophils Percent 1 % (0-6); Eosinophils Absolute Manual 0.08 K/mm3 (0.02-0.50); Eosinophils Percent Manual 1 % (0-4); Lymphocytes Absolute Manual 0.41 K/mm3 (1.1-4.5); Lymphocytes Percent Manual 5.0 % (18-44); Neutrophils Absolute Manual 7.70 K/mm3 (1.3-6.7); Neutrophils Percent Manual 93 % (46-73); Ovalocytes Occasional; Total Cells Counted 100
[2025-02-20 02:42] LABS: Schistocytes None Seen; Smudge Cells PRESENT
[2025-02-20 03:10] LABS: Total Triiodothyronine (T3) 1.59 NG/ML (0.82-1.58)
[2025-02-20 03:18] LABS: Free T4 Free Thyroxine 1.52 ng/dL (0.78-2.19)
[2025-02-20] MEDS: FLUTICASONE/UMECLIDIN/VILANTER 100-62.5-25 MCG ELLIPTA 1 PUFF INHALATION (08:43)
[2025-02-20] MEDS: MULTIVITAMINS THERAPEUTIC TAB (*BKC) 1 TABLET PO (09:31)
[2025-02-20] MEDS: dilTIAZem HCL CD 180 MG CAP.24HR PO (09:31)
[2025-02-20] MEDS: FLUTICASONE PROPIONATE 0.05% NA SPR 16 GM BTL (*BKC) 1 SPRAY NASAL (09:32)
[2025-02-20 10:09] LABS: Partial Thromboplastin Time 75.1 Seconds (22.3-36.8)
--- NOTE | 2025-02-20 12:08 | P.CONCA_ITS ---
Assessment and Plan Assessment and plan (1) Coronary artery disease: Qualifiers: Coronary Disease-Associated Artery/Lesion type: [place] artery [place] vs. transplanted heart: [place] heart Associated angina: without angina Q ualified Code(s): I25.10 - Atherosclerotic heart disease of [place] coronary artery without angina pectoris Code(s): I25.10 - Atherosclerotic heart disease of [place] coronary artery without angina pectoris Status: Acute Assessment and Plan: Nonobstructive disease by angiogram last year. Continue risk factor modification (2) Aortic aneurysm: Code(s): I71.9 - Aortic aneurysm of unspecified site, without rupture Status: Acute Assessment and Plan: Followed as an outpatient (3) Paroxysmal atrial fibrillation: Code(s): I48.0 - Paroxysmal atrial fibrillation Status: Acute Assessment and Plan: Back in sinus rhythm at this point feeling better. She has a chads Vasc score of 4. Will start her on Eliquis 5 mg p.o. b.i.d.. Talked about risks, benefits alternatives of anticoagulation versus anti-platelet therapy given her atrial fibrillation and a chads Vasc score of 4. She verbalized understanding and is in agreement with anticoagulation. She does have a history of Jimenez's esophagus and evaluation for future bleeding will be important. Obviously if she does have any significant bleeding issues in the future, ambulate or Watchman would be the next step. Will get her back on the previous dose of diltiazem which is 180 mg daily. Will not pursue antiarrhythmic therapy yet. Her subclinical hyperthyroidism also when he be treated and that will be started by withholding thyroid supplement. No need for an echocardiogram as 1 was performed in the office recently. Will give 1 dose of IV furosemide 20 mg x 1 now as she is still little short of breath and mild diastolic heart failure exacerbation due to the AFib with RVR (4) Hypertension: Qualifiers: Hypertension type: primary hypertension Qualified Code(s): I10 - Essential (primary) hypertension Code(s): I10 - Essential (primary) hypertension Status: Acute Assessment and Plan: Near goal (5) Hyperlipidemia: Code(s): E78.5 - Hyperlipidemia, unspecified Status: Acute Assessment and Plan: On Repatha (6) Elevated troponin: Code(s): R79.89 - Other specified abnormal findings of blood chemistry Status: Acute Assessment and Plan: Unlikely related to acute plaque rupture. Likely secondary to demand ischemia from AFib with RVR in the setting of nonobstructive disease. Down trending troponins. No further ischemic workup needed at this point. Plan Anticipate discharge home tomorrow morning History of Present Illness History of Present Illness Consult date/time: 02/20/25 12:08 Requesting physician: Marita Wills DO Consult reason: atrial fibrillation Reason For Visit: NSTEMI, COPD< SOB, New A Fib Narrative: Date of service 02/20/2025: Reason consultation: Paroxysmal atrial fibrillation Requesting provider: Dr. Wills History: Patient is a 74-year-old female patient of mine who has history of hyperthyroidism, COPD. She also has nonobstructive CAD by catheterization last year. Presenting to the hospital for acute on chronic severe shortness of breath that occurred during a walk. She had sudden onset of worsening shortness of breath at resulted in significant distress and then she started to ?panic?. When she finally got back to her car from her walk she did start to feel better but symptoms returned and she eventually came to the hospital for further workup and evaluation. She was found to be in atrial fibrillation with rapid ventricular response. She had been on a higher dose of diltiazem had reduced at that dosing despite my recommendations. Her diltiazem dose was increased and she is converted back to a sinus rhythm at this point. She feels still little bit short of breath but otherwise not having any chest pain. She denies any syncope, presyncope, paroxysmal nocturnal dyspnea, orthopnea, edema or palpitations. She has a chads Vasc score of 4 Review of Systems 2 Review of Systems: All systems reviewed & are unremarkable except as noted in HPI and below Constitutional: Constitutional: Denies body ache(s) Eyes: Eyes: Denies blurry vision ENT: Reports Normal hearing present Cardiovascular: Cardiovascular: Denies chest pain Respiratory: Respiratory: Denies chest congestion Gastrointestinal: Gastrointestinal: Denies abdominal pain Genitourinary: Genitourinary: Denies hematuria Musculoskeletal: Musculoskeletal: Denies myalgias Integumentary/Breasts: Skin/Breast: Denies erythema Neurologic: Denies Abnormal speech present Psychiatric: Psychiatric: Reports anxiety Endocrine: Endocrine: Denies excessive sweating Hematologic/Lymphatic: Hematologic/Lymphatic: Denies easy bleeding Allergic/Immunologic: Allergic/Immunologic: Denies GI upset with certain foods PMFSH Past Medical History Medical History (Updated 02/20/25 @ 12:14 by Jasper Keita MD) Paroxysmal atrial fibrillation Subclinical hyperthyroidism Coronary artery disease Multinodular goiter Thoracic aortic aneurysm (TAA) Hiatal hernia with GERD Pulmonary hypertension Vitamin D deficiency, unspecified Post-menopausal Mixed hyperlipidemia Essential (primary) hypertension Body mass index (BMI) 35 or more (12/29/18) 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 Arthritis Breasts asymmetrical Anxiety and depression Heart murmur Rheumatic fever x2 Pulmonary nodules Barretts esophagus COPD (chronic obstructive pulmonary disease) Ischemic colitis Hyperthyroidism MARILYN (generalized anxiety disorder) MDD (major depressive disorder), recurrent episode, moderate Esophageal stricture Jimenez's esophageal ulceration Surgical History Surgical History History of hernia repair (~12/2016) History of repair of hiatal hernia (~2007) History of ankle surgery (~2004) compound fracture rt ankle--2 surgeries Status post balloon dilatation of esophageal stricture Family History Family History Father Family history of premature coronary heart disease Hypertension Acute myocardial infarction Heart disease Mother Family history of malignant neoplasm of breast in first degree relative Patient's mother is Diabetes mellitus Neoplasm of ovary Breast cancer Depression Other Carcinoma of colon maternal aunt Social History Social History (Updated 02/20/25 @ 07:43 by Marita Wills DO) Social History: She reports that she is single and has never been . She worked for [employer] before retiring. 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 She does not have any children. She does have a medium-sized dog at home and she states that she walks her dog 2 miles every day. She also has a horse that she takes care of. She smoked 0.5-1 pack of cigarettes per day until 2006. She denies any history of alcohol use or illicit substance use. Code status: DNR/DNI (per patient request) Surrogate decision maker: Silvia Cooper (sister) Smoking packs per day: 0.5 Smoking cigarettes per day: 10.0 Years smoked: 25 Smoking pack-years: 12.50 Smoking status: Former smoker Tobacco type: cigarettes Second hand tobacco smoke exposure: No Alcohol intake: current Drinks per week: 1 Alcohol use details: beer 1-2 per month Substance use: never Substance use type: does not use Lack of Transportation: No Lack of Food: Never True Current Housing: I Have Housing Concerned About Future Housing: No Difficulty Paying Gas/Electric Bills: No Difficulty Paying for Meds: No Currently Unemployed: No Education: Master's Degree or Higher Difficulty w/ Childcare or Family Care: No Living arrangements: alone Occupation/Education: retired Gender identity (if verbalized by the patient): Female Sexual Orientation (if Verbalized by the Patient): Straight or Heterosexual Spiritual care concerns: No Agree to blood products: Yes Meds Home Medications and Allergies Home Medications ?Medication ?Instructions ?Recorded ?Confirmed ?Type evolocumab 420 mg/3.5 mL 420 mg subcut MONTHLY 02/19/25 History subcutaneous wearable injector (Repatha Pushtronex) multivitamin 1 tablet PO DAILY 01/08/23 0 02/19/25 History fluticasone propionate 50 See Rx Instructions .Route 0 08/17/24 02/19/25 Rx mcg/actuation nasal .COMPLEX #16 grams spray,suspension fluticasone fur. 100 mcg-umeclid See Rx Instructions . Route 12/24/24 02/19/25 Rx 62.5 mcg-vilant 25 mcg .COMPLEX #60 ea inhalat.powder (Trelegy Ellipta) diltiazem HCl 180 mg capsule,24 60 mg PO Q24H 02/19/25 02/19/25 History hr,extended release thyroid (pork) 30 mg tablet (BLOCK PRESS OPERATOR 30 mg PO QAM 02/19/25 02/19/25 History Thyroid) Allergies Allergy/AdvReac Type Severity Reaction Status Date / Time Penicillins Allergy Intermediate hives Verified 05/17/24 13:41 erythromycin base AdvReac Unknown Vomiting Verified 05/17/24 13:41 Vital Signs Vital Signs - 24 hr 02/19/25 18:18 02/19/25 18:30 02/19/25 19:01 Temperature Pulse Rate 127 H 120 H 116 H Respiratory Rate 23 H 21 H 28 H Blood Pressure 109/82 108/80 113/77 Pulse Oximetry 97 97 97 Oxygen Delivery Fraction of Inspired Oxygen 02/19/25 19:15 02/19/25 19:30 02/19/25 19:32 Temperature 37.1 C Pulse Rate 114 H 89 94 Respiratory Rate 21 H 30 H 20 Blood Pressure 105/78 105/78 Pulse Oximetry 98 99 Oxygen Delivery Room Air Fraction of Inspired Oxygen 02/19/25 19:34 02/19/25 19:35 02/19/25 20:11 Temperature Pulse Rate 99 89 Respiratory Rate 24 H Blood Pressure 128/94 H Pulse Oximetry 97 Oxygen Delivery Room Air Fraction of Inspired Oxygen 02/19/25 20:15 02/19/25 20:28 02/19/25 20:43 Temperature Pulse Rate 89 90 89 Respiratory Rate 29 H 18 16 Blood Pressure 92/55 L 119/93 H Pulse Oximetry 97 98 Oxygen Delivery Fraction of Inspired Oxygen 02/19/25 20:44 02/19/25 20:51 02/19/25 21:01 Temperature 36.6 C Pulse Rate 89 89 98 Respiratory Rate 16 16 22 H Blood Pressure 118/83 Pulse Oximetry 100 98 Oxygen Delivery Room Air Fraction of Inspired Oxygen 21 02/19/25 21:13 02/19/25 22:00 02/19/25 22:15 Temperature 36.4 C L Pulse Rate 124 H 113 H 113 H Respiratory Rate 7 L 18 Blood Pressure 134/84 Pulse Oximetry 92 92 Oxygen Delivery Room Air Fraction of Inspired Oxygen 21 02/19/25 23:32 02/20/25 00:00 02/20/25 02:00 Temperature 36.6 C Pulse Rate 109 H 139 H 85 Respiratory Rate 17 Blood Pressure 126/89 Pulse Oximetry 96 Oxygen Delivery Fraction of Inspired Oxygen 02/20/25 03:42 02/20/25 03:53 02/20/25 04:00 Temperature 36.6 C Pulse Rate 83 81 81 Respiratory Rate 17 17 Blood Pressure 140/86 Pulse Oximetry 96 96 Oxygen Delivery Room Air Fraction of Inspired Oxygen 02/20/25 06:00 02/20/25 07:39 02/20/25 08:00 Temperature 36.8 C Pulse Rate 83 88 Respiratory Rate 20 Blood Pressure 136/86 Pulse Oximetry 99 Oxygen Delivery Room Air Fraction of Inspired Oxygen 02/20/25 08:43 02/20/25 08:43 02/20/25 11:50 Temperature 36.5 C Pulse Rate 92 92 84 Respiratory Rate 18 22 H Blood Pressure 146/92 H Pulse Oximetry 94 99 Oxygen Delivery Room Air Fraction of Inspired Oxygen 21 Exam 2 Narrative: Awake alert oriented appears to be in no acute distress appears stated age Const: General: comfortable and no acute distress HENMT: Ears: TM's normal bilaterally Face/Nose/Sinus: Normal nares present Mouth: Yes moist mucous membranes Eyes: General: appearance normal, both eyes and all related structures S clera: sclerae normal Neck: Neck: supple and no JVD Chest: Other: No reproducible chest wall pain to palpation Resp: Effort & Inspection: normal respiratory effort Auscultation: clear to auscultation bilaterally Cardio: Rate: regular rate Rhythm: regular rhythm Heart sounds: Murmur heart sound present GI: Inspection: non-distended GI Palp: Yes Soft to palpation A uscultation: normal bowel sounds Skin: General skin exam: normal color and no rashes or lesions noted Neuro: Speech: normal speech Sensory Exam: normal sensation Extrem: General: normal to inspection Psych: Mental Status: mental status grossly normal Affect: normal affect Results Labs and Meds 02/20/25 02:08 02/19/25 18:39 Lab results: Cardiac Enzymes 02/19/25 02/19/25 02/20/25 Range/Units 18:39 21:31 00:27 AST 28 (14-36) U/L Troponin I 0.832 H* 0.645 H* D 0.371 H* D (0.000-0.034) ng/mL Coagulation 02/19/25 02/19/25 02/20/25 Range/Units 18:39 20:03 02:08 PT 14.9 H 14.8 H (11.1-14.7) Seconds APTT 25.7 26.8 70.4 H (22.3-36.8) Seconds 02/20/25 Range/Units 09:44 PT (11.1-14.7) Seconds APTT 75.1 H (22.3-36.8) Seconds CBC 02/19/25 02/19/25 02/20/25 Range/Units 18:39 20:03 02:08 WBC 9.6 8.7 8.2 (4.5-10.0) K/mm3 RBC 4.30 4.41 4.49 (4.2-5.4) M/mm3 Hgb 13.3 13.5 13.5 (12.0-15.0) g/dL Hct 39.7 40.3 41.4 (37.0-47.0) % Plt Count 160 149 L 148 L (150-375) k/mm3 Lymph # (Auto) 1.05 1.23 Not Reportable (0.9-3.2) K/mm3 [place] # (Auto) 0.5 0.6 Not Reportable (0.1-0.6) K/mm3 Eos # (Auto) 0.1 0.1 Not Reportable (0-0.3) K/mm3 Baso # (Auto) 0.0 0.0 Not Reportable (0.0-0.1) K/mm3 Comprehensive Metabolic Panel 02/19/25 Range/Units 18:39 Sodium 136 L (137-145) mmol/L Potassium 4.1 (3.4-5.0) mmol/L Chloride 106 (98-107) mmol/L Carbon Dioxide 21 L (22-30) mmol/L BUN 25 H (7-17) mg/dL Creatinine 0.86 (0.7-1.0) mg/dL Glucose 153 H (65-110) mg/dL Calcium 9.4 (8.4-10.2) mg/dL AST 28 (14-36) U/L ALT 14 (6-35) U/L Alkaline Phosphatase 87 (38-126) U/L Total Protein 6.5 (6.3-8.2) g/dL Albumin 3.7 (3.5-5.1) g/dL Intake and Output 02/19/25 02/20/25 02/20/25 23:59 07:59 15:59 Intake Total 359.3 240 Output Total 600 300 Balance -240.7 -60 Intake: IV 59.3 Heparin Sod/D5w 100 Units/ml 25 59.3 ,000 units In 250 ml @ 900 UNITS/HR 9 mls/hr IV CONT .Q24H [facility] Rx#:[id number] Oral 300 240 Output: Urine 600 300 Other: # Unmeasured Voids 2 Patient Weight 02/20/25 23:59 Weight 84.8 kg EKG personally reviewed and interpreted showing atrial fibrillation with rapid ventricular response, left axis deviation, poor R-wave progression. Follow-up EKG shows normal sinus rhythm
[2025-02-20] MEDS: FUROSEMIDE INJ 40 MG/4 ML VIAL 20 MG IV PUSH (13:22)
[2025-02-20] MEDS: APIXABAN 5 MG TABLET PO (20:54)
[2025-02-21] VITALS (16 sets, daily range): BP systolic 121–135; BP diastolic 76–83; PULSE 63–106; RESP 18–20; TEMP 36.4–36.8; O2SAT 92–99
[2025-02-21 04:40] LABS: Hematocrit 38.9 % (37.0-47.0); Hemoglobin 12.7 g/dL (12.0-15.0); Mean Corpuscular HGB Conc 32.6 g/dl (32-36); Mean Corpuscular Hemoglobin 30.3 pg (26-34); Mean Corpuscular Volume 92.8 fl (80-100); Platelet Count Result 149 k/mm3 (150-375); Red Blood Count 4.19 M/mm3 (4.2-5.4); White Blood Count 10.7 K/mm3 (4.5-10.0)
[2025-02-21 05:05] LABS: Anion Gap 6 mmol/L (4-12); Blood Urea Nitrogen 22 mg/dL (7-17); Calcium 9.2 mg/dL (8.4-10.2); Carbon Dioxide 24 mmol/L (22-30); Chloride 107 mmol/L (98-107); Estimated CRCL calculation 62 ml/min; Estimated Glomerular Filt Rate > 60; Glucose 113 mg/dL (65-110); Magnesium 2.2 mg/dL (1.6-2.3); Potassium 4.0 mmol/L (3.4-5.0); Sodium 137 mmol/L (137-145)
[2025-02-21] MEDS: FLUTICASONE/UMECLIDIN/VILANTER 100-62.5-25 MCG ELLIPTA 1 PUFF INHALATION (07:27)
[2025-02-21] MEDS: APIXABAN 5 MG TABLET PO ×2 (07:54→20:04)
[2025-02-21] MEDS: FLUTICASONE PROPIONATE 0.05% NA SPR 16 GM BTL (*BKC) 1 SPRAY NASAL (07:54)
[2025-02-21] MEDS: dilTIAZem HCL CD 180 MG CAP.24HR PO (07:54)
[2025-02-21] MEDS: MULTIVITAMINS THERAPEUTIC TAB (*BKC) 1 TABLET PO (07:54)
[2025-02-21 08:34] LABS: Procalcitonin 0.1 ng/mL
--- NOTE | 2025-02-21 12:40 | PM.PNCARD ---
Progress Note: A&P Assessment and Plan (1) Atrial fibrillation with rapid ventricular response: Code(s): I48.91 - Unspecified atrial fibrillation Status: Acute Assessment and Plan: New onset (2) Coronary artery disease: Qualifiers: Associated angina: without angina Coronary Disease-Associated Artery/Lesion type: [place] artery [place] vs. transplanted heart: [place] heart Qualified Code(s): I25.10 - Atherosclerotic heart disease of [place] coronary artery without angina pectoris Code(s): I25.10 - Atherosclerotic heart disease of [place] coronary artery without angina pectoris Status: Acute (3) Hypertension: Qualifiers: Hypertension type: primary hypertension Qualified Code(s): I10 - Essential (primary) hypertension Code(s): I10 - Essential (primary) hypertension Status: Acute (4) Ascending aortic aneurysm: Code(s): I71.21 - Aneurysm of the ascending aorta, without rupture Status: Acute Assessment and Plan: There is ectasia of ascending aorta measuring 4.1 cm (5) Elevated troponin: Code(s): R79.89 - Other specified abnormal findings of blood chemistry Status: Acute Assessment and Plan: Elevated troponin (0.8, 0.6, 0.3) most likely supply demand mismatch secondary to AFib with RVR in the absence of chest pain Plan Diagnosis: -New onset AFib with RVR-converted to sinus rhythm but flipped block to AFib now with RVR again -CAD-nonobstructive CAD by catheterization last year -Valvular heart disease-TTE in 2022 showed mild to moderate AR, mild , mild MR, normal LVEF, diastolic dysfunction of the LV -Hypertension-target less than 120/80 -Hyperlipidemia-on evolocumab -Elevated troponin-most likely secondary to AFib with RVR in the absence of chest pain -Ascending aortic aneurysm of 4.1 cm Plan: -Rate control with diltiazem. Increase dose from 180 mg daily to 240 mg daily if room in blood pressure -Continue Eliquis for anticoagulation -If unable to rate control with diltiazem, will plan for JUAN guided cardioversion in a.m. tomorrow. Can also evaluate valvular heart disease severe T at the time of JUAN. Keep NPO at midnight -Check and replace electrolytes to keep potassium greater than 4 and magnesium greater than 2 Subjective Date/time seen: 02/21/25 12:40 Interval history: Reason for encounter: 74-year-old female with new onset atrial fibrillation with RVR Relevant history: She spontaneously converted to sinus rhythm but flipped back into atrial fibrillation. Her rates are in the 100s to 140s range. No chest pain, shortness of breath, dizziness, lightheadedness. She notices feeling tired when she is walking to the bathroom. Review of Systems Cardiovascular: Comments: As per HPI Respiratory: Comments: As per HPI Exam Narrative: General: Alert oriented x3, no acute distress Neck: Supple, JVD + Chest: Bilaterally clear to auscultation, no rales or rhonchi Cardiac: S1, S2 +, regular rate, regular rhythm, no murmurs or rubs Extremities: Bilateral lower extremity edema 1+, no skin rash Neurologic: Alert and oriented x3, no focal neurological deficits Objective Data Vital Signs Vital Signs: Vital Signs - 24 hr 02/20/25 14:00 02/20/25 15:49 02/20/25 16:00 Temperature 36.6 C Pulse Rate 85 70 Respiratory Rate 18 Blood Pressure 127/73 Pulse Oximetry 98 Oxygen Delivery Room Air 02/20/25 16:00 02/20/25 17:26 02/20/25 20:00 Temperature 36.6 C Pulse Rate 73 87 77 Respiratory Rate 18 Blood Pressure 117/87 Pulse Oximetry 98 Oxygen Delivery 02/20/25 20:00 02/20/25 20:00 02/20/25 22:00 Temperature Pulse Rate 80 77 Respiratory Rate Blood Pressure Pulse Oximetry Oxygen Delivery Room Air 02/20/25 23:52 02/21/25 00:00 02/21/25 00:00 Temperature 36.6 C Pulse Rate 77 77 Respiratory Rate 18 Blood Pressure 120/75 Pulse Oximetry 95 Oxygen Delivery Room Air 02/21/25 02:00 02/21/25 04:00 02/21/25 04:00 Temperature 36.6 C Pulse Rate 75 73 Respiratory Rate 18 Blood Pressure 121/76 Pulse Oximetry 92 Oxygen Delivery Room Air 02/21/25 04:00 02/21/25 06:00 02/21/25 08:00 Temperature Pulse Rate 63 78 106 H Respiratory Rate Blood Pressure Pulse Oximetry Oxygen Delivery 02/21/25 08:05 02/21/25 10:00 02/21/25 11:49 Temperature 36.8 C 36.4 C Pulse Rate 103 H 99 89 Respiratory Rate 18 18 Blood Pressure 121/83 132/80 Pulse Oximetry 98 98 Oxygen Delivery Intake/Output Intake/Output: Intake & Output 02/18/25 02/19/25 02/20/25 02/21/25 23:59 23:59 23:59 23:59 Intake Total 1629.3 930 Output Total 1700 800 Balance -70.7 130 Meds/Results Medications: Active Medications Generic Name Dose Route Start Last Admin Trade Name Freq PRN Reason Stop Dose Admin Apixaban 5 mg 02/20/25 21:00 02/21/25 07:54 Apixaban 5 Mg Tablet PO 5 mg Q12HR FARHANA Administration Diltiazem HCl 180 mg 02/20/25 09:00 02/21/25 07:54 Diltiazem Hcl Cd 180 Mg Cap.24hr PO 180 mg QAM FARHANA Administration Fluticasone Propionate 1 spray 02/20/25 09:00 02/21/25 07:54 Fluticasone Propionate 0.05% Na Spr 16 Gm Btl (*Bkc) NASAL 1 spray DAILY FARHANA Administration Fluticasone/Umeclidinium/Vilanterol 1 puff 02/20/25 08:00 02/21/25 07:27 Fluticasone/Umeclidin/Vilanter 100-62.5-25 Mcg Ellipta INHALATION 1 puff DAILYRT FARHANA Administration Multivitamins Therapeutic 1 tablet 02/20/25 09:00 02/21/25 07:54 Multivitamins Therapeutic Tab (*Bkc) PO 1 tablet DAILY FARHANA Administration Radiology Results: ITS Impressions Chest X-Ray 02/19/25 18:58 Impression: No acute cardiopulmonary abnormality. Labs Labs: Laboratory Results - last 24 hr 02/21/25 03:49 WBC 10.7 H RBC 4.19 L Hgb 12.7 Hct 38.9 MCV 92.8 MCH 30.3 MCHC 32.6 RDW 14.2 Plt Count 149 L MPV 12.2 H Sodium 137 Potassium 4.0 Chloride 107 Carbon Dioxide 24 Anion Gap 6 BUN 22 H Creatinine 0.67 L Estim Creat Clear Calc 62 Estimated GFR > 60 Glucose 113 H Calcium 9.2 Magnesium 2.2 Procalcitonin 0.1
[2025-02-22] VITALS (20 sets, daily range): BP systolic 99–147; BP diastolic 66–100; PULSE 68–124; RESP 17–25; TEMP 36.3–36.6; O2SAT 91–99
--- NOTE | 2025-02-22 00:25 | PM.IMPN ---
Progress Note: A&P Assessment and Plan (1) Atrial fibrillation with rapid ventricular response: Code(s): I48.91 - Unspecified atrial fibrillation Status: Acute Plan cardiology recommendations noted. average HR slightly improved. cont telemetry. NPO at midnight. Pt wishes to be DNR. Subjective Date/time seen: 02/21/25 1500 Interval history: NAOE. pt denies SOB. appears calm. Review of Systems Review of Systems: All systems reviewed & are unremarkable except as noted in HPI and below (subjective) Exam Const: General: comfortable and no acute distress HENMT: Mouth: Yes moist mucous membranes Eyes: Pupils: Equal, round and reactive pupils present Neck: Neck: supple Resp: Effort & Inspection: normal respiratory effort Cardio: Rate: tachycardic Rhythm: abnormal rhythm GI: GI Palp: Yes Soft to palpation and No Tenderness to palpation present (GI) Objective Data Vital Signs Vital Signs: Vital Signs - 24 hr 02/21/25 02:00 02/21/25 04:00 02/21/25 04:00 Temperature 97.8 F Pulse Rate 75 73 Respiratory Rate 18 Blood Pressure 121/76 Pulse Oximetry 92 Oxygen Delivery Room Air Fraction of Inspired Oxygen 02/21/25 04:00 02/21/25 06:00 02/21/25 08:00 Temperature Pulse Rate 63 78 106 H Respiratory Rate Blood Pressure Pulse Oximetry Oxygen Delivery Fraction of Inspired Oxygen 02/21/25 08:05 02/21/25 10:00 02/21/25 11:49 Temperature 98.3 F 97.6 F Pulse Rate 103 H 99 89 Respiratory Rate 18 18 Blood Pressure 121/83 132/80 Pulse Oximetry 98 98 Oxygen Delivery Fraction of Inspired Oxygen 02/21/25 12:00 02/21/25 14:00 02/21/25 16:00 Temperature Pulse Rate 93 101 H 88 Respiratory Rate Blood Pressure Pulse Oximetry Oxygen Delivery Fraction of Inspired Oxygen 02/21/25 16:11 02/21/25 18:00 02/21/25 20:00 Temperature 97.5 F L 97.5 F L Pulse Rate 95 93 85 Respiratory Rate 20 20 Blood Pressure 129/82 135/81 Pulse Oximetry 99 96 Oxygen Delivery Fraction of Inspired Oxygen 02/21/25 20:00 02/21/25 20:32 02/21/25 22:00 Temperature Pulse Rate 82 101 H Respiratory Rate Blood Pressure Pulse Oximetry 95 Oxygen Delivery Room Air Fraction of Inspired Oxygen 02/21/25 23:21 Temperature Pulse Rate Respiratory Rate Blood Pressure Pulse Oximetry Oxygen Delivery Room Air Fraction of Inspired Oxygen Intake/Output Intake/Output: Intake & Output 02/19/25 02/20/25 02/21/25 02/22/25 23:59 23:59 23:59 23:59 Intake Total 1629.3 1570 Output Total 1700 2600 Balance -70.7 -1030 Meds/Results Medications: Active Medications Generic Name Dose Route Start Last Admin Trade Name Freq PRN Reason Stop Dose Admin Apixaban 5 mg 02/20/25 21:00 02/21/25 20:04 Apixaban 5 Mg Tablet PO 5 mg Q12HR FARHANA Administration Diltiazem HCl 180 mg 02/20/25 09:00 02/21/25 07:54 Diltiazem Hcl Cd 180 Mg Cap.24hr PO 180 mg QAM FARHANA Administration Fluticasone Propionate 1 spray 02/20/25 09:00 02/21/25 07:54 Fluticasone Propionate 0.05% Na Spr 16 Gm Btl (*Bkc) NASAL 1 spray DAILY FARHANA Administration Fluticasone/Umeclidinium/Vilanterol 1 puff 02/20/25 08:00 02/21/25 07:27 Fluticasone/Umeclidin/Vilanter 100-62.5-25 Mcg Ellipta INHALATION 1 puff DAILYRT FARHANA Administration Multivitamins Therapeutic 1 tablet 02/20/25 09:00 02/21/25 07:54 Multivitamins Therapeutic Tab (*Bkc) PO 1 tablet DAILY FARHANA Administration Radiology Results: ITS Impressions Chest X-Ray 02/19/25 18:58 Impression: No acute cardiopulmonary abnormality. Labs Labs: Laboratory Results - last 24 hr 02/21/25 03:49 WBC 10.7 H RBC 4.19 L Hgb 12.7 Hct 38.9 MCV 92.8 MCH 30.3 MCHC 32.6 RDW 14.2 Plt Count 149 L MPV 12.2 H Sodium 137 Potassium 4.0 Chloride 107 Carbon Dioxide 24 Anion Gap 6 BUN 22 H Creatinine 0.67 L Estim Creat Clear Calc 62 Estimated GFR > 60 Glucose 113 H Calcium 9.2 Magnesium 2.2 Procalcitonin 0.1
[2025-02-22] MEDS: MIDAZOLAM HCL (*CRX) 2 MG/2 ML VIAL 3 MG IV PUSH (08:30)
[2025-02-22] MEDS: fentaNYL CITRATE INJ (*CRX) 100 MCG/2 ML VIAL 25 MCG IV PUSH (08:30)
--- NOTE | 2025-02-22 09:00 | ECHO_ITS ---
Patient Info Name: Asya Ramirez Age: 74 years : 1950 Gender: Female Ht: 64 in Wt: 171 lbs BSA: 1.90 m2 HR: 82 bpm BP: 124 / 78 mmHg Heart Rhythm: Sinus Rhythm Technical Quality: Good Exam Date: 02/22/2025 8:31 AM Patient Status: I Admit Date: 02/21/2025 Exam Type: CA echo transesophageal Complete two-dimensional, color flow and Doppler transesophageal study is performed. Staff Referring Physician: Jaswatn Moreland MD Noise Tester: Nadia Prescott Attending Provider: Marita Wills DO Summary 1. Left ventricular chamber dimension is normal. 2. Left ventricular systolic function is normal with an ejection fraction of 60-65% by visual estimation. 3. The left ventricular diastolic function is indeterminate as it was not assessed. 4. Left atrial chamber dimension is moderately enlarged. 5. There is moderate aortic valve sclerosis. 6. There is mild to moderate aortic valve stenosis, measuring 1.4 cm2 by planimetry. 7. There is mild aortic valve regurgitation. 8. There is mild mitral valve regurgitation. 9. The prox ascending aorta size is borderline dilated at 4.1 cm. Procedure Details Risks/benefits/alternative to JUAN discuss with patient and she gave informed consent. She was monitored electrocardiographically, vitals, pulse ox. She is in sinus rhythm, HR 80 bpm, BP 120/70 mmHg, pulse ox 99%. Cetacaine spray x 1 to posterior oropharynx. Versed 3 mg and Fentanyl 25 mcg IV for conscious sedation. Multiple images obtained. Agitated saline injection x 1. Patient tolerated procedure well with no complications. Left Ventricle Left ventricular chamber dimension is normal. Left ventricular systolic function is normal with an ejection fraction of 60-65% by visual estimation. The left ventricular diastolic function is indeterminate as it was not assessed. Right Ventricle Right ventricular chamber dimension is normal. Right ventricular systolic function is normal. Left Atria Left atrial chamber dimension is moderately enlarged. Right Atria Right atrial chamber dimension is normal. Atrial Septum Intact interatrial septum visualized by 2D, color flow and agitated saline imaging. Agitated saline injection opacified right side cardiac chambers without shunt to left side cardiac chambers. Atrial Appendage There is no thrombus visualized in the left atrial appendage. Aortic Valve The aortic valve is trileaflet. There is moderate aortic valve sclerosis. There is mild to moderate aortic valve stenosis, measuring 1.4 cm2 by planimetry. There is mild aortic valve regurgitation. Pulmonic Valve There is no pulmonic regurgitation. Mitral Valve There is no mitral valve stenosis. There is mild mitral valve regurgitation. Tricuspid Valve There is no tricuspid valve regurgitation. Pericardium/Pleural There is no pericardial effusion. Inferior Vena Cava Inferior vena cava is not well visualized. Aorta The aortic root size at the sinus of Valsalva is normal. The prox ascending aorta size is borderline dilated at 4.1 cm. Report Signatures Amended by Wilder Lancaster DO on 02/22/2025 09:59 AM
[2025-02-22] MEDS: SODIUM CHLORIDE 0.9% IV 500 ML 100 ML (09:08)
[2025-02-22] MEDS: dilTIAZem HCL CD 180 MG CAP.24HR PO (10:45)
[2025-02-22] MEDS: APIXABAN 5 MG TABLET PO (10:45)
[2025-02-22] MEDS: MULTIVITAMINS THERAPEUTIC TAB (*BKC) 1 TABLET PO (10:45)
[2025-02-22] MEDS: FLUTICASONE PROPIONATE 0.05% NA SPR 16 GM BTL (*BKC) 1 SPRAY NASAL (10:46)
--- NOTE | 2025-02-22 12:52 | PN_ITS ---
This document was recreated on 03/14/2025. The original document was signed by Erika Canseco APRN on 02/22/2025 1315. Progress Note: A&P Assessment and Plan (1) Atrial fibrillation with rapid ventricular response: Code(s): I48.91 - Unspecified atrial fibrillation Status: Acute Assessment and Plan: New onset (2) Coronary artery disease: Qualifiers: Coronary Disease-Associated Artery/Lesion type: [place] artery [place] vs. transplanted heart: [place] heart Associated angina: without angina Qualified Code(s): I25.10 - Atherosclerotic heart disease of [place] coronary artery without angina pectoris Code(s): I25.10 - Atherosclerotic heart disease of [place] coronary artery without angina pectoris Status: Acute (3) Hypertension: Qualifiers: Hypertension type: primary hypertension Qualified Code(s): I10 - Essential (primary) hypertension Code(s): I10 - Essential (primary) hypertension Status: Acute (4) Ascending aortic aneurysm: Code(s): I71.21 - Aneurysm of the ascending aorta, without rupture Status: Acute Assessment and Plan: There is ectasia of ascending aorta measuring 4.1 cm (5) Elevated troponin: Code(s): R79.89 - Other specified abnormal findings of blood chemistry Status: Acute Assessment and Plan: Elevated troponin (0.8, 0.6, 0.3) most likely supply demand mismatch secondary to AFib with RVR in the absence of chest pain Plan Diagnosis: -New onset AFib with RVR-converted to sinus rhythm but flipped back to afib, and now in NSR again today -CAD-nonobstructive CAD by catheterization last year -Valvular heart disease-TTE in 2022 showed mild to moderate AR, mild , mild MR, normal LVEF, diastolic dysfunction of the LV, she had repeat JUAN today that demonstrated EF of 60-65% with mild to mod a valve area of 1.4cm2, mild AR and mild AR, will follow on OP basis -Hypertension-target less than 120/80 -Hyperlipidemia-on evolocumab -Elevated troponin-most likely secondary to AFib with RVR in the absence of chest pain -Ascending aortic aneurysm of 4.1 cm Plan: -continue cardizem 180 mg daily cannot increase dose d/t blood pressure -will plan for OP tele monitor -Continue Eliquis for anticoagulation -her TSH is low which may have contributed was taking OP medication from functional medicine and will hold and repeat labs on OP basis. Stable for dc from CV standpoint when ok with others Subjective Date/time seen: 02/22/25 12:52 Interval history: NAOE. pt denies SOB. appears calm. 02/22/25: Patient is sitting up in chair. She overall feels well. No c/o any chest pain or shortness of breath. No dizziness or palpitations. Review of Systems Review of Systems: All systems reviewed & are unremarkable except as noted in HPI and below (HPI ) Exam Narrative: General: Alert oriented x3, no acute distress Neck: Supple Chest: Bilaterally clear to auscultation, no rales or rhonchi Cardiac: S1, S2 +, regular rate, regular rhythm, no murmurs or rubs Extremities: Bilateral lower extremity edema 1+, no skin rash Neurologic: Alert and oriented x3, no focal neurological deficits Objective Data Vital Signs Vital Signs: Vital Signs - 24 hr 02/21/2514:00 02/22/2516:00 02/22/2516:11 Temperature 36.4 C L Pulse Rate 101 H 88 95 Respiratory Rate 20 Blood Pressure 129/82 Pulse Oximetry 99 Oxygen Delivery Oxygen Flow Rate Fraction of Inspired Oxygen 02/21/2518:00 02/22/2520:00 02/22/2520:00 Temperature 36.4 C L Pulse Rate 93 85 82 Respiratory Rate 20 Blood Pressure 135/81 Pulse Oximetry 96 Oxygen Delivery Oxygen Flow Rate Fraction of Inspired Oxygen 02/22/2520:32 02/21/2522:00 02/21/2523:21 Temperature Pulse Rate 101 H Respiratory Rate Blood Pressure Pulse Oximetry 95 Oxygen Delivery Room Air Room Air Oxygen Flow Rate Fraction of Inspired Oxygen 21 02/22/2500:00 02/22/2500:00 02/22/2502:00 Temperature 36.3 C L Pulse Rate 106 H 97 98 Respiratory Rate 20 Blood Pressure 128/88 Pulse Oximetry 96 Oxygen Delivery Oxygen Flow Rate Fraction of Inspired Oxygen 02/22/2503:37 02/23/2504:00 02/23/2504:00 Temperature 36.4 C L Pulse Rate 124 H 82 Respiratory Rate 20 Blood Pressure 130/96 H Pulse Oximetry 95 Oxygen Delivery Room Air Oxygen Flow Rate Fraction of Inspired Oxygen 02/22/2506:00 02/22/2507:43 02/23/2508:25 Temperature 36.6 C Pulse Rate 91 71 85 Respiratory Rate 18 20 Blood Pressure 109/66 124/78 Pulse Oximetry 97 99 Oxygen Delivery Nasal Cannula Oxygen Flow Rate 2 Fraction of Inspired Oxygen 02/23/2508:30 02/23/2508:35 02/23/2508:40 Temperature Pulse Rate 79 83 75 Respiratory Rate 17 21 H 19 Blood Pressure 130/81 110/75 147/96 H Pulse Oximetry 99 98 95 Oxygen Delivery Nasal Cannula Nasal Cannula Nasal Cannula Oxygen Flow Rate 2 2 2 Fraction of Inspired Oxygen 02/23/2508:45 02/23/2508:50 02/22/2509:00 Temperature Pulse Rate 80 72 72 Respiratory Rate 25 H 19 20 Blood Pressure 131/100 H 108/71 99/80 L Pulse Oximetry 97 91 95 Oxygen Delivery Nasal Cannula Room Air Room Air Oxygen Flow Rate 2 Fraction of Inspired Oxygen 02/22/2509:15 02/22/2509:30 02/22/2509:45 Temperature Pulse Rate 69 70 68 Respiratory Rate 17 23 H 20 Blood Pressure 103/76 102/75 114/86 Pulse Oximetry 94 96 96 Oxygen Delivery Room Air Room Air Room Air Oxygen Flow Rate Fraction of Inspired Oxygen 02/22/2511:56 Temperature 36.6 C Pulse Rate 79 Respiratory Rate 20 Blood Pressure 133/82 Pulse Oximetry 96 Oxygen Delivery Oxygen Flow Rate Fraction of Inspired Oxygen Intake/Output Intake/Output: Intake & Output 02/19/25 02/20/25 02/21/25 02/22/25 23:59 23:59 23:59 23:59 Intake Total 1629.3 1570 Output Total 1700 2600 1400 Balance -70.7 -1030 -1400 Meds/Results Medications: Active Medications Generic Name Dose Route Start Last Admin Trade Name Freq PRN Reason Stop Dose Admin Apixaban 5 mg 02/20/25 21:00 02/22/25 10:45 Apixaban 5 Mg Tablet PO 5 mg Q12HR FARHANA Administration Diltiazem HCl 180 mg 02/20/25 09:00 02/22/25 10:45 Diltiazem Hcl Cd 180 Mg Cap.24hr PO 180 mg QAM FARHANA Administration Fluticasone Propionate 1 spray 02/20/25 09:00 02/22/25 10:46 Fluticasone Propionate 0.05% Na Spr 16 Gm Btl (*Bkc) NASAL 1 spray DAILY FARHANA Administration Fluticasone/Umeclidinium/Vilanterol 1 puff 02/20/25 08:00 02/22/25 10:04 Fluticasone/Umeclidin/Vilanter 100-62.5-25 Mcg Ellipta INHALATION Not Given DAILYRT FARHANA Multivitamins Therapeutic 1 tablet 02/20/25 09:00 02/22/25 10:45 Multivitamins Therapeutic Tab (*Bkc) PO 1 tablet DAILY FARHANA Administration Radiology Results: ITS Impressions Chest X-Ray 02/19/25 18:58 Impression: No acute cardiopulmonary abnormality. Please be advised this is a medical document. It is intended for [id number] communication. It is written in medical language and may contain unfamiliar abbreviations or verbiage. Medical documents are intended to carry relevant information, facts as evident, and the clinical opinion of the practitioner at the time of the encounter. This report may have been done utilizing a voice recognition system. Attempts have been made to correct errors. However, there may be uncorrected grammatical, spelling, and recognition errors present. The file time of this note does not necessarily represent the time the patient was seen. Report Initialized date/time: 68 Declan 02/22/25 / 1256 Electronically signed by: Allen Manriquez 02/22/25 1302 Mandie Calix MD 02/22/25 1314
--- NOTE | 2025-02-22 13:14 | PM.DS ---
DS: Admitting Diagnosis Discharge Date 02/22/2025 Admitting Diagnosis Shortness of breath DS: Discharge Diagnosis Discharge Diagnosis (1) Atrial fibrillation with rapid ventricular response: Code(s): I48.91 - Unspecified atrial fibrillation Status: Acute (2) Subclinical hyperthyroidism: Code(s): E05.90 - Thyrotoxicosis, unspecified without thyrotoxic crisis or storm Status: Acute DS: Summary Hospital Course Hospital Course: 74-year-old female with PMH subclinical hyperthyroidism, COPD, Jimenez's esophagus, anxiety, depression presents to [facility] ER 02/20/2025 with complaint of shortness of breath. This caused her feel panicky and have chest discomfort. Apparently she had taken herself off of PPI and cardiac medications and sought out care from a count includes the [facility]. At that time they placed her on multiple supplements including thyroid supplement. She follows with Dr. Keita with [facility] cardiology [place]. The patient was placed back on her previous dose of 180 mg p.o. q.day. she has been hemodynamically stable with a control heart rate. She converted to normal sinus rhythm. JUAN completed on 02/22/2025: Summary 1. Left ventricular chamber dimension is normal. 2. Left ventricular systolic function is normal with an ejection fraction of 60-65% by visual estimation. 3. The left ventricular diastolic function is indeterminate as it was not assessed. 4. Left atrial chamber dimension is moderately enlarged. 5. There is moderate aortic valve sclerosis. 6. There is mild to moderate aortic valve stenosis, measuring 1.4 cm2 by planimetry. 7. There is mild aortic valve regurgitation. 8. There is mild mitral valve regurgitation. 9. The prox ascending aorta size is borderline dilated at 4.1 cm. She has been seen by Cardiology, started on apixaban 5 mg p.o. b.i.d.. She is discharged in stable condition on 01/22/2025 to home. She will follow-up in the outpatient setting with PCP and Cardiology Dr. Keita. She was DNR during the admission. Her thyroid supplement has been discontinued, advised not to take that. Patient expresses understanding and agrees. outpatient tele monitor ordered. Time Spent with Patient Time attestation: Total time spent providing and/or coordinating discharge services: Exam Const: General: comfortable and no acute distress HENMT: Mouth: Yes moist mucous membranes Eyes: Pupils: Equal, round and reactive pupils present Neck: Neck: supple Resp: Effort & Inspection: normal respiratory effort Auscultation: clear to auscultation bilaterally Cardio: Rate: regular rate Rhythm: regular rhythm GI: Inspection: non-distended GI Palp: Yes Soft to palpation Neuro: Motor exam (neuro): 5/5 motor strength present throughout Extrem: General: no edema Discharge Plan Discharge Attending physician on discharge: Diane Aguila Consulting providers: Jasper Keita Discharging Clinician: Diane Aguila Patient Disposition: Home Activity: may shower Diet: heart healthy Patient Instructions: Antibiotic Form, Safe Use of Anticoagulants (GEN) Patient Language: Azeri Stand Alone Forms: General Discharge Information Follow-up/Referrals: Jasper Keita MD [Physician, Cardiology] Shayy Olivares MD [Primary Care Provider, Family Practice] Discharge Medications: New Eliquis 5 mg Tablet 5 mg PO Q12HR Qty: 60 0RF diltiazem HCl 180 mg Capsule,Ext.Rel 24h Degradable 180 mg PO QAM Qty: 60 0RF Continued multivitamin Tablet 1 tablet PO DAILY Repatha Pushtronex 420 mg/3.5 mL wearable injector 420 mg subcut MONTHLY fluticasone propionate 50 mcg/actuation spray,suspension See Rx Instructions .ROUTE .COMPLEX Qty: 16 1RF Dose Instruction: SHAKE LIQUID AND USE 1 SPRAY IN EACH NOSTRIL DAILY Rx Instructions: SHAKE LIQUID AND USE 1 SPRAY IN EACH NOSTRIL DAILY Trelegy Ellipta 100-62.5-25 mcg blister with device See Rx Instructions .ROUTE .COMPLEX Qty: 60 5RF Dose Instruction: INHALE 1 PUFF BY MOUTH DAILY FOR COPD Rx Instructions: INHALE 1 PUFF BY MOUTH DAILY FOR COPD Discontinued thyroid (pork) [BUSINESS INFORMATION MANAGER Thyroid] 30 mg tablet 30 mg PO QAM diltiazem HCl 180 mg capsule,extended release 24hr 60 mg PO Q24H Rx Instructions: TAKE 1 CAPSULE BY MOUTH DAILY Date of admission: 02/21/25 13:54 Primary Care Provider: Shayy Olivares Admitting Provider: Marita Wills Attending physician on admission: Marita Wills Condition: Improved Hospitalist MIPS Heart Failure (Exclusion) Patient has history of Heart Transplant or Left Ventricular Assistive Device?: No IF YES, STOP HERE Heart Failure (Qualifier) Patient has current or prior documentation of LVEF less than or equal to 40%, or mod/servere depressed LVSF?: No IF NO, STOP HERE
== END 2025-02-22 15:00 | disposition home or self-care (01) | DRG 309 ==
LOC: ANHED 20:25 → ANHIMU 20:47
PROVIDERS: Emergency Medicine; Internal Medicine Cardiovascular Disease; Admitting Provider Internal Medicine; Emergency Provider Emergency Medicine; PCP Family Medicine; Visit Provider General Practice
PROC: B24BZZ4 Ultrasonography of Heart with Aorta, Transesophageal (ICD-10-PCS; CPT 93312; principal; 2025-02-22 09:00)
DX: I48.0 Paroxysmal atrial fibrillation (principal); I24.89 Other forms of acute ischemic heart disease; I25.10 Atherosclerotic heart disease of native coronary artery without angina pectoris; J44.9 Chronic obstructive pulmonary disease, unspecified; I71.21 Aneurysm of the ascending aorta, without rupture; E78.2 Mixed hyperlipidemia; I10 Essential (primary) hypertension; R91.8 Other nonspecific abnormal finding of lung field; E05.80 Other thyrotoxicosis without thyrotoxic crisis or storm; E04.1 Nontoxic single thyroid nodule; F17.210 Nicotine dependence, cigarettes, uncomplicated; K44.9 Diaphragmatic hernia without obstruction or gangrene; F41.9 Anxiety disorder, unspecified; F32.A Depression, unspecified; Z66 Do not resuscitate
CPT/HCPCS: 36415; 71046; 80048; 80053; 83735; 83880; 84145; 84439; 84443; 84480; 84484; 85025; 85027; 85610; 85730; 93005; 93312; 93320; 93325; 94640; 96374; 99285; A9270; G0378; J1644; J1938; J2250; J2919; J3010; J7040